=== PATIENT | female | born 1965 | race Caucasian/White ===

== ENCOUNTER 2018-11-27 17:32 | Emergency (ER) | payer OTHER, MEDICAID, SELFPAY ==
[2018-11-27 17:33] VITALS: BP 144/81; PULSE 92; RESP 16; TEMP 36.1; O2SAT 96; BMI 36.3
--- NOTE | 2018-11-27 17:49 | RAD_ITS ---
STUDY: X-RAY - PELVIS REASON FOR EXAM: Female, 53 years old. Fall TECHNIQUE: One view of the pelvis was obtained. COMPARISON: None. FINDINGS: There is no evidence of fracture or dislocation. Mild degenerative changes are present at the bilateral hip joints. There are no radiodense foreign bodies. RAD/Pelvis 1 or 2 Views IMPRESSION: No fracture or dislocation. Mild degenerative changes are present at the bilateral hip joints. Electronically Signed: Roberto Guillory, at 18:11 EDT Tel , Service support ,
--- NOTE | 2018-11-27 17:50 | ED.VISSUMM ---
- ER Visit Summary Date of Service: 11/27/18 Chief Complaint: Fall complaining of groin and pelvis pain History of Present Illness: The patient is a 53 F past medical history of diabetes, hypertension and prior thyroidectomy and hysterectomy. Patient was walking in [facility] on Sunday it was wet on the floor she slipped with her left leg and foot going forward and straddling on her right leg. She kind of did a split landed on the floor. No head injury. No LOC. Her primary pain is to both hips and both groins. She is able to walk. Physical Examination: Middle-aged female. No acute distress. Vital signs stable afebrile. HEENT exam atraumatic. Pupils are reactive light. C-spine nontender. Trachea midline. Lungs clear to auscultation bilaterally. Heart regular rate and rhythm no murmur. Chest nontender. Abdomen soft nontender normal bowel sounds no peritoneal signs. Remedies moves all 4. Neurovascular intact. Full range of motion. Normal motor strength and sensation. Pelvis is tender diffusely tender but no deformities. Back nontender. Spine nontender. Neurologic exam normal. GCS of 15. Awake alert no focal motor or sensory deficits. Test Results: Pelvis x-ray read both by myself and radiologist shows no acute abnormality. No fracture or dislocation. I did go over the films with the patient and family. Emergency Department Course and Treatment: Patient did not waiting for pain. Most likely this is soft tissue strain. X-ray will be obtained for evaluation of the pelvic bones. Treatment Plan: Ice to the area. Tylenol and Motrin for pain. Increase activity as tolerated. Follow-up if not improving. Disposition: dc Impression: Fall Pelvis contusion and groin strain and hip strain This note was generated with [employer] dictation software. It may contain incorrect words, spelling, and punctuation that were not noted in review of the chart prior to signing ED Disposition - Plan for ED Patient: Referrals: Care Physician,No Primary [NON-STAFF] -
--- NOTE | 2018-11-27 18:16 | ED.DEP ---
ED Disposition - Plan for ED Patient: Disposition: Home or Assisted Living Instructions: Groin Strain Referrals: Vinod Barakat MD [STAFF PHYSICIAN] - 1 Week if not improving Additional Instructions: Ice to all sore areas. Motrin and Tylenol for pain. This should progressively improve if it is not follow-up for further evaluation.
== END 2018-11-27 18:24 | disposition home or self-care (01) ==
PROVIDERS: Emergency Provider Emergency Medicine; Family Provider Internal Medicine; PCP Internal Medicine
DX: S30.0XXA Contusion of lower back and pelvis, initial encounter (principal); S39.011A Strain of muscle, fascia and tendon of abdomen, initial encounter; S76.011A Strain of muscle, fascia and tendon of right hip, initial encounter; S76.012A Strain of muscle, fascia and tendon of left hip, initial encounter; W01.0XXA Fall on same level from slipping, tripping and stumbling without subsequent striking against object, initial encounter; Y93.01 Activity, walking, marching and hiking; Y92.512 Supermarket, store or market as the place of occurrence of the external cause; E11.9 Type 2 diabetes mellitus without complications; I10 Essential (primary) hypertension; E03.9 Hypothyroidism, unspecified; Z79.84 Long term (current) use of oral hypoglycemic drugs; Z79.899 Other long term (current) drug therapy
CPT/HCPCS: 72170; 99282

== ENCOUNTER → 2018-12-16 14:22 | Outpatient (CLI) | payer OTHER, SELFPAY ==
[2018-12-16 13:24] VITALS: BMI 36.3
[2018-12-16 15:00] LABS: Absolute Lymphocyte Count 2.82 X10^3/uL (0.83-4.51); Absolute Neutrophil Count 6.2 X10^3/uL (2.0-7.7); Basophil# 0.07 X10^3/uL; Basophil% 0.7 % (0-1); Eosinophil# 0.34 X10^3/uL; Eosinophils% 3.3 % (0-5); Hematocrit 42.1 % (37-47); Hemoglobin 13.7 g/dL (12.0-15.0); Lymphocyte # 2.82 X10^3/ul (4.0); Lymphocyte % 27.7 % (19-41); Mean Corp Hgb Conc 32.5 g/dL (32-36); Mean Corpuscular Hgb 28.5 pg (27.0-32.0); Mean Corpuscular Volume 87.5 fL (81-99); Mean Platelet Vol. 9.6 fl (6.2-12.0); Monocyte# 0.68 X10^3/uL; Monocyte% 6.7 % (0-10); NRBC Flagged by Analyzer 0 % (0-5); Neutrophil # 6.24 X10^3/uL (2.7-7.7); Neutrophil % 61.4 % (47-70); Platelet Count 372 K/mm3 (150-450); RBC Distribution Width CV 13.5 % (11.6-14.6); RBC Distribution Width SD 42.7 fl (35.1-43.9); Red Blood Count 4.81 M/mm3 (4.2-5.4); White Blood Count 10.2 K/mm3 (4.4-11.0)
[2018-12-16 15:19] LABS: Microalbumin:Creatinine Ratio 27.1 mg/g CRE (<30 mg/g CRE)
[2018-12-16 15:38] LABS: AST(SGOT) 61 U/L (15-37); Alanine Aminotransfer ALT/SGPT 119 U/L (13-56); Alkaline Phosphatase 85 U/L (45-117); Anion Gap 9 (5-15); BUN 19 mg/dL (7-18); BUN/Creat Ratio 19.2 RATIO (10-20); Calcium,Total 9.5 mg/dL (8.5-10.1); Chloride 104 mmol/L (98-107); Creatinine, Serum 0.99 mg/dL (0.55-1.02); EST Glomerular Filtration Rate 63 mL/min (>60); Est Glom Filt Rate - Afr Amer 76 mL/min (>60); Globulin 3.9 g/dL (2.2-4.2); Glucose 123 mg/dL (74-106); Potassium 3.8 mmol/L (3.5-5.1); Protein, Total 7.9 g/dL (6.4-8.2); Sodium Level 136 mmol/L (136-145)
== END ==
PROVIDERS: Family Provider Internal Medicine; PCP Internal Medicine; Referring Provider Internal Medicine; Visit Provider Internal Medicine
DX: E11.9 Type 2 diabetes mellitus without complications (principal)
CPT/HCPCS: 36415; 80053; 82043; 82570; 85025

== ENCOUNTER → 2019-02-14 10:43 | Outpatient (CLI) | payer OTHER, SELFPAY ==
[2019-02-14 10:35] VITALS: BMI 35.9
--- NOTE | 2019-02-14 10:43 | RAD_ITS ---
STUDY: X-RAY - RIGHT ELBOW REASON FOR EXAM: Female, 53 years old. PAIN, NKI TECHNIQUE: 3 view(s) of the elbow. COMPARISON: None. FINDINGS: Minimal hypertrophic changes/enthesophyte of the medial and lateral humeral epicondyles. Otherwise, normal distal humerus. Normal radius and ulna. Normal radiocapitellar and ulnotrochlear articulations. The soft tissue structures are unremarkable. RAD/Elbow min 3 Views IMPRESSION: Minimal hypertrophic changes of the medial and lateral humeral epicondyles. Otherwise normal elbow. Electronically Signed: Tania Kent MD at 21:14 EST , Service support ,
--- NOTE | 2019-02-14 10:43 | RAD_ITS ---
STUDY: X-RAY - RIGHT HAND REASON FOR EXAM: Female, 53 years old. PAIN, NKI TECHNIQUE: 3 view(s) of the hand. COMPARISON: None. FINDINGS: Normal radiocarpal articulation. Normal distal radioulnar joint. Normal visualized carpal bones. There is degenerative joint disease of the scaphotrapezium / trapezoid articulation. Separate small chronic appearing fragment alongside the lateral surface of the trapezium. The remainder of the carpal articulations are normal. Normal carpometacarpal articulation of the thumb. Normal second through fifth carpometacarpal joints. Normal metacarpi. There is degenerative arthrosis of the metacarpophalangeal (MCP) joints. There is degenerative arthrosis of the interphalangeal joint of the thumb with articular joint space narrowing. Normal proximal and distal phalanges of the thumb. Normal metacarpophalangeal joints of the second through fifth fingers. Minimal degenerative changes of the interphalangeal joints. Normal phalanges of the second through fifth fingers. Benign bone island of the middle phalanx of the third finger. The soft tissue structures are unremarkable. RAD/Hand Min 3 Views IMPRESSION: Degenerative joint changes of the scaphotrapezium/trapezoid articulation. Small separate fragment or possibly a calcification juxtaposed the radial surface of the trapezoid. Possibilities include a fragment from prior injury or calcification of the bursa or flexor carpi radialis. Mild degenerative changes of the first metacarpophalangeal joint. Mild degenerative arthrosis of the interphalangeal joint of the thumb. Minimal degenerative changes of the interphalangeal joints. Electronically Signed: Tania Kent MD at 21:13 EST , Service support ,
== END ==
PROVIDERS: Family Provider Internal Medicine; PCP Internal Medicine; Referring Provider Orthopaedic Surgery; Visit Provider Orthopaedic Surgery
DX: M77.10 Lateral epicondylitis, unspecified elbow (principal); M79.641 Pain in right hand
CPT/HCPCS: 73080; 73130

== ENCOUNTER 2019-02-27 07:17 | Day surgery (SDC) | payer OTHER, SELFPAY ==
[2019-02-14 10:35] VITALS: BMI 35.9
[2019-02-27] VITALS (7 sets, daily range): BP systolic 96–119; BP diastolic 55–73; PULSE 71–84; RESP 16; TEMP 36.3–36.4; O2SAT 92–94; BMI 36.7
--- NOTE | 2019-02-27 07:29 | HP.PCM_ITS ---
History and Physical Date of Admission: 02/27/19 Intake Vital Signs 02/14/19 Height 5 ft 4 in 02/14/19 Weight: 209 lb 02/14/19 BMI 35.9 Intake Visit Reasons: Right hand Chief Complaint: trigger finger Accompanied by: self Allergies adhesive tape Allergy (Intermediate, Verified 11/27/18 17:32) Swelling cephalexin [From Keflex] Allergy (Intermediate, Verified 11/27/18 17:32) Rash Sulfa (Sulfonamide Antibiotics) Allergy (Intermediate, Verified 11/27/18 17:32) Unknown sulfamethoxazole [From Bactrim] Allergy (Intermediate, Verified 11/27/18 17:32) Rash trimethoprim [From Bactrim] Allergy (Intermediate, Verified 11/27/18 17:32) Rash Medications calcium carbonate 600 mg calcium (1,500 mg) tablet 600 mg PO BID 11/27/18 [History Confirmed 02/14/19] cholecalciferol (vitamin D3) 1,000 unit capsule 1,000 unit PO DAILY 11/27/18 [History Confirmed 02/14/19] glimepiride 1 mg tablet 1 mg PO QAM 11/27/18 [History Confirmed 02/14/19] lisinopril 10 mg-hydrochlorothiazide 12.5 mg tablet 1 tab PO DAILY 11/27/18 [History Confirmed 02/14/19] loratadine 10 mg capsule 10 mg PO DAILY PRN 11/27/18 [History Confirmed 02/14/19] metformin 1,000 mg tablet 1,000 mg PO BID 11/27/18 [History Confirmed 02/14/19] omega-3 fatty acids 1,000 mg capsule 1,000 mg PO DAILY 11/27/18 [History Confirmed 02/14/19] omeprazole magnesium 20 mg tablet,delayed release 20 mg PO BID tab 11/27/18 [History Confirmed 02/14/19] vitamin B complex 2 tab PO DAILY 11/27/18 [History Confirmed 02/14/19] levothyroxine 137 mcg tablet 137 mcg PO DAILY #90 tab 01/15/19 [Rx Confirmed 02/14/19] [facility] Medical History (Updated 12/16/18 @ 16:16 by Jonnie Guardado MD) Cancer (Acute) Carpal tunnel syndrome (Acute) Diabetes (Acute) GERD (gastroesophageal reflux disease) (Acute) Gallstones (Acute) Gastrointestinal problem (Acute) Heart murmur (Acute) Hypoglycemia (Acute) IBS (irritable bowel syndrome) (Acute) Liver disease (Acute) Pneumonia (Acute) Seasonal allergies (Acute) Thyroid cancer (Acute) UTI (urinary tract infection) (Acute) Chronic bronchitis (Chronic) Chronic headaches (Chronic) HTN (hypertension) (Chronic) Surgical History (Updated 11/27/18 @ 08:45 by Nena Morgan) Endometriosis determined by laparoscopy (Acute) History of bilateral breast reduction surgery (Acute) History of hysterectomy (Acute) History of removal of cervix but not uterus (Acute) History of thyroidectomy (Acute) History of tubal ligation (Acute) Hx of cholecystectomy (Acute) Social History (Updated 02/14/19 @ 11:39 by Wilbert Meyer DO) Smoking Status: Never smoker alcohol intake: never substance use type: does not use what type of physical activity do you participate in: walking HPI Right hand: Details: Parts of this documentation were recorded by a scribe, this documentation accurately reflects the service provided and the decisions made by me, Wilbert Meyer DO 02/14/19 0756. LETY MEADOWS is a 53 year old F NEW patient here today for right hand pain. Patient was referred here today by PCP Dr. Guardado. patient is here for right ringer finger trigger finger. She states she has had this locking and sticking of her right ring finger for about 1 year. She had a trigger finger injection over the summer which was effective until about 2 months ago. She states she is having some pain over her right middle finger has well but does not have any locking of this finger. She is also having some lateral epicondyle pain and tenderness over the last 3 months. Denies any PT, denies any injury, denies any bracing. Denies numbness, tingling or other associated symptoms. ROS Musc Reports joint pain, Denies numbness, Denies radiating pain into limb, Reports stiffness, Denies tingling Skin/Breast Denies redness, Denies lesions, Denies rash Neuro No numbness, No tingling Ortho Exam Right Wrist/Hand Skin/Wound: No Swelling, No Ecchymosis, Yes nail intact, Yes capillary refill normal A1 zachariah trigger: Yes (ring) Sensation: Radial: I, Ulnar: I, Median: I WRIST: ttp hypertrophy at 4th finger A1 zacahriah, clicking and palable release with flex/ext of fingers Left Wrist/Hand Skin/Wound: No Swelling, No Ecchymosis Right Elbow Skin/Wound: No Swelling ROM: Yes Flexion 0-140, Extension 0, Supination 0-90 and Pronation 0-80 Test: Yes TTP Lateral Epicondyle, Yes Pain w/ resist wrist ext, Yes Pain w/ resist 3rd dig ext ELBOW: No joint effusion full range of motion no collateral instability. no mechanical Assessment & Plan Problems 1. Trigger finger, right ring finger M65.341 2. Right lateral epicondylitis M77.11 Plan Educated on the anatomy and function of A1 zachariah in the hand, her treatment options are night splint, injection or surgical release. She also has right lateral epicondylitis, her treatment options for that are injections, oral nsaids, OT with eccentric exercises. Gave an OT script today and explained that sometimes it can take over a year for relief and that surgery is only an options once conservative treatment fails. Instructed to lift palm up Reviewed the pre-operative plans with the patient. Risks and benefits of the procedure were fully explained, including but not limited to infection, neurovascular injury, continued pain, arthritis, stiffness, need for further surgery, re-injury, DVT, PE, general risks of anesthesia, and loss of limb or life. The patient understands all the risks and does wish to proceed with written consent. Follow up post op or sooner if pain, swelling, numbness or associated symptoms, or concerns develop. All questions answered. Patient in agreement of plan. Orders Orders: Elbow min 3 Views Today M77.10 Hand Min 3 Views Today M79.641 Coding Level of Care Code Off vis,new,level 3 Diagnoses Trigger finger, right ring finger M65.341 Right lateral epicondylitis M77.11 I have re-examined the patient. There are no clinical changes since date of exam
[2019-02-27 08:31] LABS: Bedside Glucose 202 mg/dL (70-110)
[2019-02-27] MEDS: Lactated Ringers 1,000 ML 100 ML IV (08:33)
--- NOTE | 2019-02-27 09:17 | PCM.DC.ORTHO ---
Discharge Diet: No Restrictions Additional Instructions: Ice and elevate operative extremity next 72 hours. Keep dressing on clean and dry for 48 hours then may remove and allow warm soapy water to rinse over incision but do not submerge until sutures are out. Then apply bandaid over incision and change daily. encourage finger range of motion. Not lift more than 1/2 pound. Allergies/Adverse Reactions: Allergies adhesive tape Allergy (Intermediate, Verified 02/27/19 08:25) Swelling cephalexin [From Keflex] Allergy (Intermediate, Verified 02/27/19 08:25) Rash Sulfa (Sulfonamide Antibiotics) Allergy (Intermediate, Verified 02/27/19 08:25) Unknown sulfamethoxazole [From Bactrim] Allergy (Intermediate, Verified 02/27/19 08:25) Rash trimethoprim [From Bactrim] Allergy (Intermediate, Verified 02/27/19 08:25) Rash Medications to take at Discharge calcium carbonate 600 mg calcium (1,500 mg) tablet 600 mg PO BID 11/27/18 cholecalciferol (vitamin D3) 1,000 unit capsule 1,000 unit PO DAILY 11/27/18 glimepiride 1 mg tablet 1 mg PO QAM 11/27/18 lisinopril 10 mg-hydrochlorothiazide 12.5 mg tablet 1 tab PO DAILY 11/27/18 loratadine 10 mg capsule 10 mg PO DAILY PRN 11/27/18 metformin 1,000 mg tablet 1,000 mg PO BID 11/27/18 omega-3 fatty acids 1,000 mg capsule 1,000 mg PO DAILY 11/27/18 omeprazole magnesium 20 mg tablet,delayed release 20 mg PO BID tab 11/27/18 vitamin B complex 2 tab PO DAILY 11/27/18 levothyroxine 137 mcg tablet 137 mcg PO DAILY #90 tab 01/15/19 Hydrocodone Bitart/Apap 5-325 [Temple 5MG-325MG] 1 - 2 tablet PO Q4H PRN PRN 5 Days #20 tablet 02/27/19 The following prescriptions were given: Hydrocodone Bitart/Apap 5-325 [Temple 5MG-325MG] 1 - 2 tablet PO Q4H PRN PRN 5 Days #20 tablet PRN Reason: Pain Transmission Status: Sent to [facility] Primary Care Physician: Jonnie Guardado MD [Primary Care Provider] - Test Results: Test results from this visit will be discussed in further detail at your follow-up appointment, if applicable. Please Follow Up With: Wilbert Meyer DO - 2 weeks
--- NOTE | 2019-02-27 09:18 | OP.PCM_ITS ---
Report of Operation Date of Procedure: 02/27/19 Description of Surgical Findings:: Preoperative diagnosis; right fourth digit trigger finger Postoperative diagnosis; same Procedure: Left fourth digit A1 zachariah release Anesthesia: Local with MAC Tourniquet time; 10 minutes 250 mm Hg Complications: None Indication for procedure; This is a 53-year-old female with symptoms consistent with trigger finger. Risks benefits and alternatives were reviewed including risks of bleeding infection nerve tendon tissue damage need for further surgery and continued pain and symptoms, hypersensitivity to scar/incision and recurrence. Procedure; The patient was met in the preoperative holding area the operative extremity was identified by both patient and physician and was marked the patient was met by anesthesia and brought back to the operating room and transferred to the operating table in the supine position. Aanesthesia was started. A well-padded tourniquet was placed on the operative upper extremity. The patient was prepped and draped in the usual sterile fashion. A timeout was called to ensure the proper patient procedure and extremity were being contemplated. 0.5 percent Marcaine was injected into the incisional area. Esmarch was used tourniquet was inflated. 15 blade scalpel was used to make a l ongitudinal incision directly over the A1 zachariah was carried down through the subcutaneous tissue Elda retractors placed radial and ulnar protecting the digital nerves and a Ragnell retractor was used at the apex of the incision under direct visualization a deep blade scalpel was used to release the A1 zachariah. The wound was thoroughly irrigated and closed with 4-0 nylon vertical mattress edges. Dressing was applied in the form of Xeroform 4 x 4 web roll and an Caden wrap. Patient tolerated the procedure well was brought back to the PACU in stable condition.
== END 2019-02-27 10:08 | disposition home or self-care (01) ==
LOC: SDC 07:18 → AC 07:19
PROVIDERS: Family Provider Internal Medicine; PCP Internal Medicine; Referring Provider Orthopaedic Surgery; Visit Provider Orthopaedic Surgery
PROC: (CPT 26055; principal; 2019-02-27 08:45)
DX: M65.341 Trigger finger, right ring finger (principal); M77.11 Lateral epicondylitis, right elbow; R01.1 Cardiac murmur, unspecified; E11.9 Type 2 diabetes mellitus without complications; K21.9 Gastro-esophageal reflux disease without esophagitis; K44.9 Diaphragmatic hernia without obstruction or gangrene; K58.9 Irritable bowel syndrome, unspecified; G25.81 Restless legs syndrome; I10 Essential (primary) hypertension; E06.9 Thyroiditis, unspecified; Z87.19 Personal history of other diseases of the digestive system; Z87.01 Personal history of pneumonia (recurrent); Z85.850 Personal history of malignant neoplasm of thyroid; Z87.440 Personal history of urinary (tract) infections; Z79.84 Long term (current) use of oral hypoglycemic drugs; Z79.899 Other long term (current) drug therapy
CPT/HCPCS: 26055; 82962; J7120; J2405

== ENCOUNTER → 2019-04-15 | Outpatient (CLI) | payer OTHER, SELFPAY ==
[2019-04-14 14:53] VITALS: BMI 36.7
[2019-04-15 08:19] LABS: Mucous, Urine 0 SEEN /hpf (<or=2+); Red Blood Cells-Urine 0 SEEN /hpf (0-5); Squamous Epithelial Cells - UA 0 SEEN /hpf (5-10); White Blood Cells 0 SEEN /hpf (0-5)
[2019-04-15 12:31] LABS: Color, Urine Yellow (Yellow); Glucose, Dipstick Normal (Normal); Ketone-Dipstick 5 mg/dl (Negative); Leukocyte Esterase-Dipstick Negative /ul (Negative); Nitrite-Dipstick Negative (Negative); Occult Blood-Urine Negative /ul (Negative); Protein-Dipstick 30 mg/dl (Negative); Urine Bilirubin Dipstick Negative (Negative); Urine Clarity Turbid (Clear); Urine Urobilinogen Normal (Normal)
[2019-04-15 13:09] LABS: Bacteria 3+ /hpf (None Seen); Calcium Oxalate Crystals Ur 2+ /hpf (<or=2+)
== END | disposition home or self-care (01) ==
LOC: LABSPEC 08:17
PROVIDERS: PCP Internal Medicine; Visit Provider Internal Medicine
DX: R35.0 Frequency of micturition (principal)
CPT/HCPCS: 81001; 87086

== ENCOUNTER → 2019-07-30 15:26 | Outpatient (CLI) | payer OTHER, SELFPAY ==
[2019-07-30 14:37] VITALS: BMI 36.7
[2019-07-30 16:56] LABS: Anion Gap 13 (5-15); BUN 15 mg/dL (7-18); BUN/Creat Ratio 13.3 RATIO (10-20); Calcium,Total 9.3 mg/dL (8.5-10.1); Chloride 103 mmol/L (98-107); Creatinine, Serum 1.13 mg/dL (0.55-1.02); EST Glomerular Filtration Rate 53 mL/min (>60); Est Glom Filt Rate - Afr Amer 65 mL/min (>60); Glucose 202 mg/dL (74-106); Potassium 4.2 mmol/L (3.5-5.1); Sodium Level 140 mmol/L (136-145)
== END ==
PROVIDERS: PCP Internal Medicine; Referring Provider Internal Medicine; Visit Provider Internal Medicine
DX: E11.9 Type 2 diabetes mellitus without complications (principal); I10 Essential (primary) hypertension
CPT/HCPCS: 36415; 80048; 83036

== ENCOUNTER → 2019-11-04 09:10 | Outpatient (CLI) | payer OTHER, SELFPAY ==
[2019-09-29 14:56] VITALS: BMI 36.7
== END ==
PROVIDERS: PCP Internal Medicine; Visit Provider Nurse Practitioner Family
DX: Z20.828 Contact with and (suspected) exposure to other viral communicable diseases (principal)
CPT/HCPCS: 87635; C9803; U0003

== ENCOUNTER → 2019-11-07 17:14 | Outpatient (CLI) | payer OTHER, SELFPAY ==
[2019-09-29 14:56] VITALS: BMI 36.7
== END ==
PROVIDERS: PCP Internal Medicine; Referring Provider Nurse Practitioner Family; Visit Provider Nurse Practitioner Family
DX: Z20.828 Contact with and (suspected) exposure to other viral communicable diseases (principal)
CPT/HCPCS: 87635; C9803; U0003

== ENCOUNTER 2019-12-25 15:00 | Outpatient (RCR) | payer OTHER, SELFPAY ==
[2019-09-29 14:56] VITALS: BMI 36.7
== END 2019-12-27 23:59 ==
LOC: DC 15:00
PROVIDERS: PCP Internal Medicine; Visit Provider Internal Medicine
DX: Z71.3 Dietary counseling and surveillance (principal); E11.9 Type 2 diabetes mellitus without complications
CPT/HCPCS: 97802

== ENCOUNTER → 2020-01-08 09:29 | Outpatient (CLI) | payer OTHER, SELFPAY ==
[2020-01-07 16:30] VITALS: BMI 35.3
[2020-01-08 12:54] LABS: Absolute Lymphocyte Count 2.48 X10^3/uL (0.83-4.51); Absolute Neutrophil Count 5.1 X10^3/uL (2.0-7.7); Basophil# 0.06 X10^3/uL; Basophil% 0.7 % (0-1); Eosinophil# 0.44 X10^3/uL; Eosinophils% 5.1 % (0-5); Hematocrit 41.8 % (37-47); Hemoglobin 13.2 g/dL (12.0-15.0); Lymphocyte # 2.48 X10^3/ul (4.0); Lymphocyte % 28.6 % (19-41); Mean Corp Hgb Conc 31.6 g/dL (32-36); Mean Corpuscular Hgb 28.8 pg (27.0-32.0); Mean Corpuscular Volume 91.1 fL (81-99); Mean Platelet Vol. 9.9 fl (6.2-12.0); Monocyte# 0.52 X10^3/uL; NRBC Flagged by Analyzer 0 % (0-5); Neutrophil # 5.14 X10^3/uL (2.7-7.7); Neutrophil % 59.3 % (47-70); Platelet Count 352 K/mm3 (150-450); RBC Distribution Width CV 13.4 % (11.6-14.6); RBC Distribution Width SD 44.4 fl (35.1-43.9); Red Blood Count 4.59 M/mm3 (4.2-5.4); White Blood Count 8.7 K/mm3 (4.4-11.0)
[2020-01-08 13:12] LABS: Microalbumin,Random Urine 32.6 mg/L (NO RANGE EST.); Microalbumin:Creatinine Ratio 24.3 mg/g CRE (<30 mg/g CRE)
[2020-01-08 13:44] LABS: ALB/GLOB Ratio 0.9 RATIO (0.9-2.4); AST(SGOT) 23 U/L (15-37); Alanine Aminotransfer ALT/SGPT 57 U/L (13-56); Albumin, Serum 3.6 g/dL (3.2-5.0); Alkaline Phosphatase 74 U/L (45-117); Anion Gap 7 (5-15); BUN 17 mg/dL (7-18); BUN/Creat Ratio 17.9 RATIO (10-20); Calcium,Total 9.5 mg/dL (8.5-10.1); Chloride 106 mmol/L (98-107); Cholesterol 220 mg/dL (200); Creatinine, Serum 0.95 mg/dL (0.55-1.02); EST Glomerular Filtration Rate 65 mL/min (>60); Est Glom Filt Rate - Afr Amer 79 mL/min (>60); Globulin 3.9 g/dL (2.2-4.2); Glucose 140 mg/dL (74-106); High Density Lipoprotein 46 mg/dL; Potassium 4.6 mmol/L (3.5-5.1); Protein, Total 7.5 g/dL (6.4-8.2); Sodium Level 138 mmol/L (136-145); Thyroid Stim Hormone (TSH) 0.65 uIU/mL (0.358-3.74); Triglycerides 259 mg/dL; Very Low Density Lipoprotein 52 mg/dL (5-40)
== END ==
PROVIDERS: PCP Internal Medicine; Referring Provider Nurse Practitioner Family; Visit Provider Nurse Practitioner Family
DX: E11.9 Type 2 diabetes mellitus without complications (principal); I10 Essential (primary) hypertension; R25.2 Cramp and spasm
CPT/HCPCS: 36415; 80053; 80061; 82043; 82570; 84443; 85025

== ENCOUNTER 2020-01-08 16:00 | Outpatient (RCR) | payer OTHER, SELFPAY ==
[2019-09-29 14:56] VITALS: BMI 36.7
[2020-01-07 16:30] VITALS: BMI 35.3
== END 2020-01-26 23:59 ==
LOC: DC 16:00
PROVIDERS: PCP Internal Medicine; Visit Provider Internal Medicine
DX: Z71.3 Dietary counseling and surveillance (principal); E11.9 Type 2 diabetes mellitus without complications
CPT/HCPCS: 97803

== ENCOUNTER 2020-01-18 13:02 | Emergency (ER) | payer OTHER, SELFPAY ==
[2020-01-07 16:30] VITALS: BMI 35.3
[2020-01-18 13:03] VITALS: BP 142/81; PULSE 103; RESP 18; TEMP 36.4; O2SAT 96; BMI 35.3
--- NOTE | 2020-01-18 13:29 | ED.VIS.GEN ---
History of Present Illness Chief Complaint: Fever Informant: Patient Onset: Days - 3 days Narrative: Patient presents secondary to cough and sinus pressure. She reports low-grade fevers, sinus pressure, fatigue for the past 3 days. She states she now feels that she has pressure in her ears as well. She has tried Mucinex without much improvement. She denies any known Covid exposures. - Past Medical History (1) Generalized anxiety disorder with panic attacks Status: Chronic (2) Hypertension Status: Chronic (3) Type 2 diabetes mellitus Status: Chronic Past Medical History - Allergies and Home Meds Allergies/Adverse Reactions: Allergies adhesive tape Allergy (Intermediate, Verified 01/18/20 13:03) Swelling cephalexin [From Keflex] Allergy (Intermediate, Verified 01/18/20 13:03) Rash Sulfa (Sulfonamide Antibiotics) Allergy (Intermediate, Verified 01/18/20 13:03) Unknown sulfamethoxazole [From Bactrim] Allergy (Intermediate, Verified 01/18/20 13:03) Rash trimethoprim [From Bactrim] Allergy (Intermediate, Verified 01/18/20 13:03) Rash Primary Care Physician: Jonnie Guardado MD [Primary Care Provider] - Prior records reviewed: Yes Lives: Spouse/ Significant Other Smoking Status: Never smoker Review of Systems General: Reports: Fever. Denies: Chills Eyes: Denies: Visual changes - bilaterally ENT: Reports: Bilateral ear pain, - - Sinus pressure Cardiovascular: Denies: Chest pain Respiratory: Reports: Cough. Denies: Dyspnea, Sputum Gastrointestinal: Denies: Abdominal pain, Vomiting, Diarrhea Genitourinary: Denies: Dysuria Neurological: Denies: Headache Hematologic: Denies: Easy bruising, Easy bleeding Allergy: Denies: Uticaria Physical Exam Vital Signs/Narrative: Vital Signs Temp Pulse Resp BP Pulse Ox 01/18/20 13:03 97.5 F L 103 H 18 142/81 H 96 Inital Vital Signs reviewed: Yes General: Well nourished, Well developed Head: Normocephalic Eyes: Perrl, EOMI ENT: Moist mucous membranes, TM's clear Neck: Supple Cardiovascular: Regular rate, Regular rhythm Respiratory: No distress, CTA bilaterally Abdomen: Soft, Nontender Skin: Normal color Neurological: Alert, Oriented x3 Psychological: Normal affect Diagnostic/Tx/Re-eval - Medical Decision Making Patient has had sinus symptoms ongoing for the past 3 days. I did advise her that typically we will not treat with antibiotics until she has had 1 week of symptoms as most of these infections are viral. Patient voices understanding and agreement. We did discuss [id number] medications that she can use to help manage her symptoms. A Covid swab will be obtained and sent out. ED Disposition - Plan for ED Patient: Disposition: Home or Assisted Living Diagnosis: Viral URI Instructions: ED URI Viral Referrals: Jonnie Guardado MD [Primary Care Provider] - 1 Week if not improving
== END 2020-01-18 13:51 | disposition home or self-care (01) ==
LOC: ED 13:33
PROVIDERS: Emergency Provider Emergency Medicine; PCP Internal Medicine
DX: U07.1 COVID-19 (principal); I10 Essential (primary) hypertension; E11.9 Type 2 diabetes mellitus without complications; Z79.84 Long term (current) use of oral hypoglycemic drugs; Z79.899 Other long term (current) drug therapy
CPT/HCPCS: 87635; 99282; U0003

== ENCOUNTER 2020-03-15 15:13 | Outpatient (RCR) | payer OTHER, SELFPAY ==
[2020-02-06 14:36] VITALS: BMI 35.3
== END 2020-03-15 23:59 | disposition home or self-care (01) ==
LOC: DC 15:13
PROVIDERS: PCP Internal Medicine; Visit Provider Internal Medicine
DX: E11.9 Type 2 diabetes mellitus without complications (principal)
CPT/HCPCS: 97803

== ENCOUNTER 2020-08-18 15:41 | Emergency (ER) | payer OTHER, SELFPAY ==
[2020-05-14 10:25] VITALS: BMI 33.6
[2020-08-18 15:42] VITALS: BP 139/84; PULSE 105; RESP 14; TEMP 36.3; O2SAT 96; BMI 34.0
--- NOTE | 2020-08-18 16:32 | EKG12_ITS ---
Test Reason : CP Blood Pressure : / mmHG Vent. Rate : 099 BPM Atrial Rate : 099 BPM P-R Int : 154 ms QRS Dur : 092 ms QT Int : 354 ms P-R-T Axes : 052 012 020 degrees QTc Int : 454 ms Normal sinus rhythm Inferior infarct , age undetermined , cannot be excluded Abnormal ECG Confirmed by GILDA JONES, TIFFANIE ([id number]), publications editor RENARD ESCAMILLA ([id number]) on 08/25/2020 10:46:45 AM Referred By: MEHRAN Confirmed By:TIFFANIE VO MD
--- NOTE | 2020-08-18 16:34 | NURSING ---
NO OLD EKGS
[2020-08-18 17:08] LABS: Absolute Neutrophil Count 5.3 X10^3/uL (2.0-7.7); Basophil# 0.07 X10^3/uL; Basophil% 0.8 % (0-1); Eosinophil# 0.46 X10^3/uL; Hematocrit 42.8 % (37-47); Hemoglobin 13.6 g/dL (12.0-15.0); Lymphocyte % 30.6 % (19-41); Mean Corp Hgb Conc 31.8 g/dL (32-36); Mean Corpuscular Volume 88.1 fL (81-99); Mean Platelet Vol. 9.4 fl (6.2-12.0); Monocyte# 0.53 X10^3/uL; Monocyte% 5.8 % (0-10); NRBC Flagged by Analyzer 0 % (0-5); Neutrophil # 5.26 X10^3/uL (2.7-7.7); Neutrophil % 57.5 % (47-70); Platelet Count 364 K/mm3 (150-450); RBC Distribution Width CV 13.9 % (11.6-14.6); RBC Distribution Width SD 45.1 fl (35.1-43.9); Red Blood Count 4.86 M/mm3 (4.2-5.4); White Blood Count 9.2 K/mm3 (4.4-11.0)
--- NOTE | 2020-08-18 17:16 | RAD_ITS ---
STUDY: X-RAY CHEST REASON FOR EXAM: Female, 54 years old. chest pain TECHNIQUE: Single AP portable view of the chest. COMPARISON: None. FINDINGS: The lungs are clear and expanded. There is no demonstrated pleural abnormality. Normal size heart. Normal mediastinum and leslie. Normal visualized pulmonary arteries. Normal visualized aortic arch and descending thoracic aorta. Normal visualized thoracic spine. Normal visualized ribs, clavicles, and shoulders. There is no demonstrated abnormality of the visualized soft tissue structures of the upper abdomen. RAD/Chest 1 View (Portable) IMPRESSION: Normal x-ray examination of the chest. Electronically Signed: Rafael Bartlett MD at 17:56 EDT Tel , Service support ,
[2020-08-18 17:21] VITALS: BP 131/61; PULSE 90; RESP 19; O2SAT 999
[2020-08-18 17:25] LABS: Anion Gap 9 (5-15); BUN 18 mg/dL (7-18); BUN/Creat Ratio 15.4 RATIO (10-20); Chloride 110 mmol/L (98-107); Creatinine, Serum 1.17 mg/dL (0.55-1.02); EST Glomerular Filtration Rate 51 mL/min (>60); Est Glom Filt Rate - Afr Amer 62 mL/min (>60); Estimated Creatinine Clearance 47.47 ml/min; Glucose 106 mg/dL (74-106); Potassium 3.8 mmol/L (3.5-5.1); Sodium Level 142 mmol/L (136-145); Troponin-I HS < 3.0 pg/mL (3.0-53.7)
[2020-08-18 17:56] LABS: Thyroid Stim Hormone (TSH) 2.35 uIU/mL (0.358-3.74)
[2020-08-18 18:01] LABS: D-Dimer Quantitative (DVT/PE) <= 0.27 FEU/ug/m (0.27-0.49)
[2020-08-18 18:14] VITALS: BP 104/57; PULSE 89; RESP 17; O2SAT 94
[2020-08-18 19:00] VITALS: BP 139/75; PULSE 86; RESP 14; O2SAT 96
[2020-08-18 19:28] LABS: Troponin-I HS 3.5 pg/mL (3.0-53.7)
--- NOTE | 2020-08-18 19:42 | ED.VIS.CHEST ---
HPI History of Present Illness Chief Complaint: Chest Pain Informant: patient Narrative Narrative: Patient is a 54-year-old female with history of hypertension, diabetes, anxiety and thyroid cancer status post resection presenting with chest pain. Patient states for the past 2 days she is had pressure in her chest that radiates all the way across her chest. She states is worse in the morning. Pain for last for about a minute at a time. She notes this morning she was driving all of a sudden her palms felt very sweaty and her fingers felt very cold. Patient know she still has some slight discomfort in her chest. She denies any associated diaphoresis. No palpitations. No shortness of breath. No leg swelling but notes that her toes seemed puffy yesterday. No recent travel. No other complaints at this time. Denies any personal history of cardiac disease. Never had a stress test. [facility] Medical History (Updated 08/18/20 @ 19:[address] Margaret Agosto, DO) Cancer Carpal tunnel syndrome Chronic bronchitis Chronic headaches Diabetes Gallstones Gastrointestinal problem GERD (gastroesophageal reflux disease) Heart murmur HTN (hypertension) Hypoglycemia IBS (irritable bowel syndrome) Liver disease Malignant neoplasm of thyroid gland Pneumonia Seasonal allergies surgery to r hand Thyroid cancer Trigger finger UTI (urinary tract infection) Home Medications calcium carbonate 600 mg calcium (1,500 mg) tablet 600 mg PO BID 11/27/18 [History Last Taken Unknown] cholecalciferol (vitamin D3) 25 mcg (1,000 unit) capsule 1,000 unit PO DAILY 11/27/18 [History Last Taken Unknown] loratadine 10 mg capsule 10 mg PO DAILY PRN 11/27/18 [History Last Taken Unknown] omega-3 fatty acids 1,000 mg capsule 1,000 mg PO DAILY 11/27/18 [History Last Taken Unknown] omeprazole magnesium 20 mg tablet,delayed release 20 mg PO BID tab 11/27/18 [History Last Taken 02/27/19] vitamin B complex 2 tab PO DAILY 11/27/18 [History Last Taken Unknown] hydroxyzine HCl 25 mg tablet 25 mg PO BID PRN #30 tab 09/29/19 [Rx Last Taken Unknown] empagliflozin 10 mg tablet 10 mg PO QAM #30 tab 06/04/20 [Rx Last Taken Unknown] levothyroxine 137 mcg tablet See Rx Instructions .ROUTE .COMPLEX #90 tab 06/16/20 [Rx Last Taken Unknown] metformin 1,000 mg tablet 1,000 mg PO BID #180 tab 06/16/20 [Rx Last Taken Unknown] lisinopril 5 mg tablet 5 mg PO DAILY #90 tab 07/02/20 [Rx Last Taken Unknown] glimepiride 4 mg tablet 4 mg PO QAM #90 tab 08/04/20 [Rx Last Taken Unknown] Allergy/AdvReac Type Severity Reaction Status Date / Time adhesive tape Allergy Intermediate Swelling Verified 08/18/20 15:44 cephalexin [From Keflex] Allergy Intermediate Rash Verified 08/18/20 15:44 Sulfa (Sulfonamide Allergy Intermediate Unknown Verified 08/18/20 15:44 Antibiotics) sulfamethoxazole Allergy Intermediate Rash Verified 08/18/20 15:44 [From Bactrim] trimethoprim [From Bactrim] Allergy Intermediate Rash Verified 08/18/20 15:44 Family History Unknown Anemia Anxiety Arthritis Breast cancer Cervical cancer Diabetes Depression Hypertension Respiratory disease Seizures Thyroid disorder Aunt Ovarian cancer Surgical History Endometriosis determined by laparoscopy History of bilateral breast reduction surgery History of hysterectomy History of removal of cervix but not uterus History of thyroidectomy History of tubal ligation Hx of cholecystectomy Social History Smoking Status: Never smoker alcohol intake: never substance use type: does not use what type of physical activity do you participate in: walking ROS ROS ED Constitutional Constitutional ED: Denies fatigue or weakness Eyes Eyes: Denies blurry vision or other visual disturbances Cardiovascular Cardiovascular: Reports chest pain; Denies palpitations or racing heartbeat Respiratory/Chest Respiratory/Chest: Denies cough, dyspnea or dyspnea on exertion Gastrointestinal Gastrointestinal: Denies abdominal pain, nausea or vomiting Genitourinary Genitourinary ED: Denies decreased urination or dysuria Musculoskeletal Musculoskeletal: Reports other Details: no leg swelling ; Denies extremity pain Integumentary Denies new lesions or rash Neurologic Neurologic: Denies paresthesias or weakness Psychiatric Psychiatric: Denies anxiety or depression Hematologic/Lymphatic Hematologic/Lymphatic: Denies easy bleeding or easy bruising EXAM Physical Exam Const Vital Signs: 08/18/20 15:42 08/18/20 17:21 08/18/20 17:22 Temperature 97.4 F L Temperature Source Temporal Pulse Rate 105 H 90 Respiratory Rate 14 19 H Blood Pressure 139/84 H 131/61 H Blood Pressure Mean 102 84 Pulse Ox 96 999 Oxygen Delivery Method Room Air Room Air Room Air 08/18/20 18:14 08/18/20 19:00 Temperature Temperature Source Pulse Rate 89 86 Respiratory Rate 17 14 Blood Pressure 104/57 L 139/75 H Blood Pressure Mean 72 96 Pulse Ox 94 96 Oxygen Delivery Method Positive well nourished and well developed General Appearance ED: well developed HEENT normocephalic and atraumatic Eyes PERRL Neck supple and no JVD Chest Wall inspection of chest normal and palpation of chest normal Resp normal respiratory effort and clear to auscultation bilaterally Cardio regular rate, regular rhythm and no murmurs GI normal to inspection, nondistended, normoactive bowel sounds Extremity normal to inspection Extremity Narrative: 2+ bilateral DP pulses General Extremety ED: Negative for edema, pulses abnormal or tenderness General Extremity: Negative for edema or pulses abnormal Neuro oriented x3 Sensorium / Orientation: awake and alert Psych mental status grossly normal Skin no rashes or lesions noted Heart Score History: Slightly/Non-Suspicious ECG: Normal Age: >45 - <65 years Risk Factors: 1 or 2 Risk Factors Troponin: </= Normal Limit Score: 2 MDM MDM MDM Narrative Medical decision making narrative: Patient is evaluated for chest pain. Her chest pain seems atypical. She appears nontoxic in no acute distress. EKG does not show any acute ischemic changes. Her only risk factor for PE is her age. She is otherwise low risk of D-dimer obtained which is normal. High sensitive troponin is normal x2. Patient's creatinine is mildly elevated at 1.17 however I do not have a prior to compare to. Patient is encouraged to follow-up with her primary care doctor and she has an appointment in a little over 1 week. She is counseled that she likely need outpatient stress test and further cardiac evaluation to definitively rule out ACS however her 30-day mortality risk is currently 1%. Patient is counseled return precautions. She verbalizes agreement understand this plan. Discharged home in stable condition. Lab Data Attestation: I reviewed the patient's lab results. Labs: Laboratory Results - last 24 hr 08/18/20 08/18/20 08/18/20 17:00 17:00 17:00 WBC 9.2 RBC 4.86 Hgb 13.6 Hct 42.8 MCV 88.1 MCH 28.0 MCHC 31.8 L RDW Std Deviation 45.1 H RDW Coeff of Tonia 13.9 Plt Count 364 MPV 9.4 Immature Gran % (Auto) 0.300 Neut % (Auto) 57.5 Lymph % (Auto) 30.6 [place] % (Auto) 5.8 Eos % (Auto) 5.0 Baso % (Auto) 0.8 Absolute Neuts (auto) 5.3 Absolute Lymphs (auto) 2.80 Nucleated RBC % 0 D-Dimer Quant (PE/DVT) Sodium 142 Potassium 3.8 Chloride 110 H Carbon Dioxide 23.0 Anion Gap 9 BUN 18 Creatinine 1.17 H Estim Creat Clear Calc 47.47 Est GFR (MDRD) Af Amer 62 Est GFR (MDRD) Non-Af 51 L BUN/Creatinine Ratio 15.4 Glucose 106 Calcium 9.0 Troponin I High Sens < 3.0 L TSH 2.35 08/18/20 08/18/20 17:35 18:45 WBC RBC Hgb Hct MCV MCH MCHC RDW Std Deviation RDW Coeff of Tonia Plt Count MPV Immature Gran % (Auto) Neut % (Auto) Lymph % (Auto) [place] % (Auto) Eos % (Auto) Baso % (Auto) Absolute Neuts (auto) Absolute Lymphs (auto) Nucleated RBC % D-Dimer Quant (PE/DVT) <= 0.27 Sodium Potassium Chloride Carbon Dioxide Anion Gap BUN Creatinine Estim Creat Clear Calc Est GFR (MDRD) Af Amer Est GFR (MDRD) Non-Af BUN/Creatinine Ratio Glucose Calcium Troponin I High Sens 3.5 TSH Radiography Chest X-Ray - ED: 1 View, Read by ED Physician, Read by Radiologist and Normal Diagnostic Testing: Radiology Impression Chest X-Ray 08/18/20 17:16 IMPRESSION: Normal x-ray examination of the chest. Electronically Signed: Rafael Bartlett MD at 17:56 EDT Tel , Service support , Rhythm Strip Rhythm Strip: Sinus Rhythm Rate: 99 Ectopy: None EKG Initial EKG: Attestation: I personally reviewed and interpreted this EKG as follows: Interpretation: Sinus Rhythm Comments: Normal sinus rhythm at a rate of 99 Normal axis Normal intervals Normal ST segments Discharge Plan Triage Chief Complaint: Chest Pain ED Provider: Margaret Agosto Dx/Rx/DC Orders Clinical Impression: Chest pain Instructions: ED Chest Pain, Uncertain Cause Prescriptions: No Action Prilosec OTC 20 mg tablet,delayed release (DR/EC) 20 mg PO BID RF: 0 cholecalciferol (vitamin D3) 1,000 unit capsule 1,000 unit PO DAILY RF: 0 calcium carbonate [Calcium 600] 600 mg calcium (1,500 mg) tablet 600 mg PO BID RF: 0 omega-3 fatty acids [Fish Oil Concentrate] 1,000 mg capsule 1,000 mg PO DAILY RF: 0 loratadine 10 mg capsule 10 mg PO DAILY PRN (Reason: Allergies) RF: 0 vitamin B complex Tablet 2 tab PO DAILY RF: 0 hydroxyzine HCl 25 mg tablet 25 mg PO BID PRN (Reason: anxiety) Qty: 30 RF: 1 Jardiance 10 mg tablet 10 mg PO QAM Qty: 30 RF: 2 levothyroxine 137 mcg tablet See Rx Instructions .ROUTE .COMPLEX Qty: 90 RF: 0 metformin 1,000 mg tablet 1,000 mg PO BID Qty: 180 RF: 1 lisinopril 5 mg tablet 5 mg PO DAILY Qty: 90 RF: 1 glimepiride 4 mg tablet 4 mg PO QAM Qty: 90 RF: 3 Primary Care Provider: Jonnie Guardado Referrals: Jonnie Guardado MD [Primary Care Provider] - Activity Restrictions/Additional Instructions: Please follow-up with your primary care doctor as scheduled and let them know about the chest pain been having. Let them know you need further cardiac evaluation of this. You do not require admission at this time. Your work-up today was normal. Disposition Disposition: Home, Self Care
[2020-08-18 19:55] VITALS: BP 142/77
== END 2020-08-18 19:55 | disposition home or self-care (01) ==
PROVIDERS: Emergency Provider Emergency Medicine; PCP Internal Medicine
DX: R07.89 Other chest pain (principal); I10 Essential (primary) hypertension; F41.9 Anxiety disorder, unspecified; G56.00 Carpal tunnel syndrome, unspecified upper limb; K21.9 Gastro-esophageal reflux disease without esophagitis; K58.9 Irritable bowel syndrome, unspecified; E11.9 Type 2 diabetes mellitus without complications; Z87.19 Personal history of other diseases of the digestive system; Z87.01 Personal history of pneumonia (recurrent); Z85.850 Personal history of malignant neoplasm of thyroid; Z87.440 Personal history of urinary (tract) infections; Z79.84 Long term (current) use of oral hypoglycemic drugs; Z79.899 Other long term (current) drug therapy
CPT/HCPCS: 71045; 80048; 84443; 84484; 85025; 85379; 93005; 99284; A4216

== ENCOUNTER → 2020-08-31 09:26 | Outpatient (CLI) | payer OTHER, SELFPAY ==
[2020-08-18 15:42] VITALS: BMI 34.0
[2020-08-31 12:31] LABS: Ferritin 13 ng/mL (8-252); T4 Free Direct 1.22 ng/dL (0.76-1.46); Thyroid Stim Hormone (TSH) 3.84 uIU/mL (0.358-3.74)
[2020-08-31 16:37] LABS: Hemoglobin A1c 6.4 % (3.8-5.6)
[2020-09-01 21:25] LABS: Anti-Thyroglobulin AB < 1.0 IU/mL (0.0-0.9); Thyroglobulin, Serum Qt. < 0.1 ng/mL (1.5-38.5)
== END ==
PROVIDERS: Internal Medicine Endocrinology, Diabetes & Metabolism; Physician Assistant; PCP Internal Medicine; Visit Provider Nurse Practitioner Family
DX: C73 Malignant neoplasm of thyroid gland (principal); E89.0 Postprocedural hypothyroidism; E61.1 Iron deficiency; E11.9 Type 2 diabetes mellitus without complications
CPT/HCPCS: 36415; 82728; 83036; 84432; 84439; 84443; 86800

== ENCOUNTER 2021-05-23 09:32 | Outpatient (CLI) | payer OTHER, SELFPAY ==
[2021-05-23 12:53] LABS: Cholesterol 212 mg/dL (200); High Density Lipoprotein 51 mg/dL; Thyroid Stim Hormone (TSH) 1.04 uIU/mL (0.358-3.74); Triglycerides 159 mg/dL; Very Low Density Lipoprotein 32 mg/dL (5-40)
[2021-05-23 13:10] LABS: ALB/GLOB Ratio 0.9 RATIO (0.9-2.4); AST(SGOT) 16 U/L (15-37); Alanine Aminotransfer ALT/SGPT 47 U/L (13-56); Albumin, Serum 3.5 g/dL (3.2-5.0); Alkaline Phosphatase 70 U/L (45-117); Anion Gap 8 (5-15); BUN 15 mg/dL (7-18); BUN/Creat Ratio 18.1 RATIO (10-20); Calcium,Total 9.5 mg/dL (8.5-10.1); Chloride 108 mmol/L (98-107); Creatinine, Serum 0.83 mg/dL (0.55-1.02); EST Glomerular Filtration Rate 76 mL/min (>60); Est Glom Filt Rate - Afr Amer 92 mL/min (>60); Globulin 3.7 g/dL (2.2-4.2); Glucose 132 mg/dL (74-106); Potassium 4.3 mmol/L (3.5-5.1); Protein, Total 7.2 g/dL (6.4-8.2); Sodium Level 140 mmol/L (136-145)
== END 2021-05-23 23:59 | disposition home or self-care (01) ==
LOC: BIMLAB 09:33
PROVIDERS: Internal Medicine Endocrinology, Diabetes & Metabolism; PCP Internal Medicine; Referring Provider Nurse Practitioner Family; Visit Provider Nurse Practitioner Family
DX: I10 Essential (primary) hypertension (principal); E11.9 Type 2 diabetes mellitus without complications; E89.0 Postprocedural hypothyroidism
CPT/HCPCS: 36415; 80053; 80061; 84443

== ENCOUNTER 2021-06-02 15:54 | Outpatient (CLI) | payer OTHER, SELFPAY ==
--- NOTE | 2021-06-02 15:55 | BI_ITS ---
MAMMOGRAPHY - BILATERAL SCREENING REASON FOR EXAM: Female, 55 years old. Routine annual screening examination. PERTINENT HISTORY: Grandmothers with breast cancer. TECHNIQUE: Digital bilateral breast facundo (3D mammographic acquisition) in the CC and MLO projections. 2-D mediolateral oblique (MLO) and craniocaudad (CC) views of both breasts were obtained. CAD: Full Field Digital Mammography with Computer Added Detection was performed. COMPARISON: Comparison is made with prior outside examination of 04/30/2018. FINDINGS: Breast Composition: The breasts are almost entirely fatty. There are no dominant masses or suspicious calcifications. Stable small benign-appearing bilateral axillary lymph nodes. No other significant abnormalities are identified. There has been no significant change since the prior study. BI/SCRN MAMM (CAD)W/FACUNDO BILAT IMPRESSION: Stable bilateral screening mammogram. Yearly follow-up mammogram recommended. (A) ASSESSMENT CATEGORY: BIRADS Category 2: Benign. A letter regarding these results will be sent to the patient by the facility within 30 days. Approximately 10% of breast cancers are not detected by mammography. A normal mammogram should not delay biopsy of a clinically suspicious abnormality. [id number] Electronically Signed: Linden Motley MD at 14:18 EDT ,
== END 2021-06-02 23:59 | disposition home or self-care (01) ==
LOC: OPBI 15:54
PROVIDERS: PCP Internal Medicine; Referring Provider Internal Medicine; Visit Provider Internal Medicine
DX: Z12.31 Encounter for screening mammogram for malignant neoplasm of breast (principal)
CPT/HCPCS: 77063; 77067

== ENCOUNTER → 2021-08-22 | Outpatient (CLI) | payer OTHER, SELFPAY ==
[2021-08-22 16:21] LABS: Absolute Lymphocyte Count 2.46 X10^3/uL (0.83-4.51); Absolute Neutrophil Count 5.9 X10^3/uL (2.0-7.7); Basophil# 0.07 X10^3/uL; Basophil% 0.7 % (0-1); Eosinophil# 0.49 X10^3/uL; Eosinophils% 5.1 % (0-5); Hematocrit 42.1 % (37-47); Hemoglobin 13.6 g/dL (12.0-15.0); Lymphocyte # 2.46 X10^3/ul (0.83-4.51); Lymphocyte % 25.7 % (19-41); Mean Corp Hgb Conc 32.3 g/dL (32-36); Mean Corpuscular Hgb 28.4 pg (27.0-32.0); Mean Corpuscular Volume 87.9 fL (81-99); Mean Platelet Vol. 9.8 fl (6.2-12.0); Monocyte# 0.59 X10^3/uL; Monocyte% 6.2 % (0-10); NRBC Flagged by Analyzer 0 % (0-5); Neutrophil # 5.93 X10^3/uL (2.7-7.7); Platelet Count 345 K/mm3 (150-450); RBC Distribution Width CV 13.7 % (11.6-14.6); RBC Distribution Width SD 44.3 fl (35.1-43.9); Red Blood Count 4.79 M/mm3 (4.2-5.4); White Blood Count 9.6 K/mm3 (4.4-11.0)
[2021-08-22 16:45] LABS: Erythrocyte Sedimentation Rate 21 mm/hr (0-30)
[2021-08-22 16:53] LABS: ALB/GLOB Ratio 0.9 RATIO (0.9-2.4); AST(SGOT) 18 U/L (15-37); Alanine Aminotransfer ALT/SGPT 44 U/L (13-56); Albumin, Serum 3.5 g/dL (3.2-5.0); Alkaline Phosphatase 71 U/L (45-117); Anion Gap 10 (5-15); BUN 17 mg/dL (7-18); BUN/Creat Ratio 17.1 RATIO (10-20); CRP 3.21 mg/L (0.0-3.0); Calcium,Total 8.9 mg/dL (8.5-10.1); Chloride 110 mmol/L (98-107); EST Glomerular Filtration Rate 61 mL/min (>60); Est Glom Filt Rate - Afr Amer 74 mL/min (>60); Globulin 3.8 g/dL (2.2-4.2); Glucose 112 mg/dL (74-106); Potassium 3.8 mmol/L (3.5-5.1); Protein, Total 7.3 g/dL (6.4-8.2); Sodium Level 139 mmol/L (136-145)
[2021-08-24 15:08] LABS: Anti-Centromere B Ab <0.2 AI (0.0-0.9); Anti-Chromatin <0.2 AI (0.0-0.9); Anti-Jo <0.2 AI (0.0-0.9); Anti-Scleroderma-70 AB <0.2 AI (0.0-0.9); RNP Ab <0.2 AI (0.0-0.9); SJOGREN'S Anti-SS-A test < 0.2 AI (0.0-0.9); SJOGREN'S Anti-SS-B test < 0.2 AI (0.0-0.9); Smith Ab <0.2 AI (0.0-0.9)
[2021-08-24 17:41] LABS: Anti-dsDNA Ab 1 IU/mL (0-9)
[2021-08-25 12:19] LABS: Anti-Thyroglobulin AB < 1.0 IU/mL (0.0-0.9); Thyroglobulin, Serum Qt. < 0.1 ng/mL (1.5-38.5)
[2021-08-25 16:09] LABS: Endomysial Antibody IgA Negative (Negative); Immunoglobulin A 291 mg/dL (87-352)
[2021-08-26 10:12] LABS: Gastrin, Serum 624 pg/mL (0-115); t-Transglutaminase IgA <2 U/mL (0-3)
== END | disposition home or self-care (01) ==
LOC: LAB 15:52
PROVIDERS: Internal Medicine Endocrinology, Diabetes & Metabolism; PCP Internal Medicine; Referring Provider Nurse Practitioner Adult Health; Visit Provider Nurse Practitioner Adult Health
DX: R10.30 Lower abdominal pain, unspecified (principal); C73 Malignant neoplasm of thyroid gland; R19.8 Other specified symptoms and signs involving the digestive system and abdomen; K21.9 Gastro-esophageal reflux disease without esophagitis; R11.0 Nausea
CPT/HCPCS: 36415; 80053; 82784; 82941; 83516; 84432; 85025; 85652; 86140; 86225; 86235; 86255; 86800

== ENCOUNTER → 2021-08-26 | Outpatient (CLI) | payer OTHER, SELFPAY ==
--- NOTE | 2021-08-26 17:48 | CT_ITS ---
STUDY: CT Abdomen And Pelvis W/ Contrast Injection 08/26/2021 7:45 PM REASON FOR EXAM: Female, 55 years old. ABDOMINAL PAIN bowel change, lower abd pain -- oral and IV TECHNIQUE: Transaxial images were obtained with oral contrast, and IV Readi-CAT and amp; 100mL Isovue-370 intravenous contrast. Individualized dose optimization techniques were used for this CT. COMPARISON: None. FINDINGS: The visualized lung bases are unremarkable. The visualized portions of the heart are within normal limits. Unremarkable liver. There are surgical clips in the gallbladder fossa consistent with a prior cholecystectomy. Unremarkable spleen. Unremarkable pancreas. Unremarkable bilateral adrenal glands. No acute findings of the right kidney. No acute findings of the left kidney. Unremarkable visualized stomach. Unremarkable small intestine. Unremarkable colon. The appendix is visualized and appears unremarkable. There are no acute findings of the abdominal aorta. Unremarkable inferior vena cava. Subcentimeter mesenteric lymph nodes. Unremarkable urinary bladder. There is absence of the uterus consistent with a prior hysterectomy. There is an umbilical hernia containing fat. There are diffuse degenerative changes of the visualized lumbar spine. CT/Abdomen/Pelvis WITH Contrast IMPRESSION: (NOT LISTED IN ORDER OF SIGNIFICANCE) There are no acute findings. There is absence of the uterus consistent with a prior hysterectomy. There are surgical clips in the gallbladder fossa consistent with a prior cholecystectomy. Other findings as above. Electronically Signed: Sarkis Bradshaw MD at 19:47 EDT ,
== END | disposition home or self-care (01) ==
LOC: CT 17:46
PROVIDERS: PCP Internal Medicine; Visit Provider Nurse Practitioner Adult Health
DX: R10.30 Lower abdominal pain, unspecified (principal); R68.81 Early satiety; R19.8 Other specified symptoms and signs involving the digestive system and abdomen
CPT/HCPCS: 74177; Q9967

== ENCOUNTER 2021-09-06 10:22 | Day surgery (SDC) | payer OTHER, SELFPAY ==
[2021-09-06] MEDS: Lactated Ringers 1,000 ML 15 ML IV (10:40)
[2021-09-06 11:06] VITALS: BP 139/85; PULSE 65; RESP 16; TEMP 36.4; O2SAT 98; BMI 34.1
[2021-09-06 11:25] LABS: Bedside Glucose 126 mg/dL (74-106)
--- NOTE | 2021-09-06 12:00 | IMM_PTH ---
PATIENT: LETY MEADOWS LOC: [facility] U#:[id number] AGE/SX: 55/F ROOM: RE09/06/[address]: Dr. Joshua Goldberg DO : 1965 BED: DIS: 09/06/2021 SPEC #: [id number] RECD: 09/07/21 11:57 STATUS: NII [place] #: [id number] NIRAJ: 09/06/21 12:[address]: Joshua Goldberg DEPT: IMMUNOHISTOCHEMISTRY RECD BY: Margarita Warren ENTERED: 09/07/21 12:02 SP TYPE: IMMUNO OTHR DR: Dr. Jonine Guardado MD Tissues: B - Stomach, NOS Procedures: H Pylori (initial) Comments: @ Specimen number changed from [id number] to [id number] @ on 09/07/21 at 1214 by RGOOD. PHYSICIAN & INSTITUTION [place] [id number] SPECIMEN INFORMATION: Tissue Source: B ? 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 Localization is made via biotin free immunoperoxidase method. Appropriate controls are performed and reacted as expected. Results on target cell population are indicated in the following table: RESULTS: ANTIBODY / CLONE RESULT Block B H Pylori (polyclonal) negative These tests were developed and their performance characteristics determined by [facility]. They may not have been cleared or approved by the U.S. Food and Drug Administration. The FDA has determined that such clearance or approval is not necessary. The above immunohistochemical/dualISH markers are ordered and reviewed by the Pathologist. INTERPRETATION: B. Antral ulcer, biopsy: Negative for Helicobacter pylori organisms. AM:kita 09/08/2021
--- NOTE | 2021-09-06 12:00 | COLBX_PTH ---
PATIENT: LETY MEADOWS LOC: EN U#:[id number] AGE/SX: 55/F ROOM: RE09/06/[address]: Dr. Joshua Goldberg DO : 1965 BED: DIS: 09/06/2021 SPEC #: [id number] RECD: 09/06/21 14:23 STATUS: NII THEE #: [id number] NIRAJ: 09/06/21 12:[address]: Joshua Goldberg DEPT: SURGICAL PATHOLOGY RECD BY: Andrei Pickett ENTERED: 09/07/21 08:48 SP TYPE: COLON BX OTHR DR: Dr. 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 pylori, C - Pylorus biopsy, D - Gastric body biopsy, E - Distal esophagus biopsy, F - Cecal polyp, G - Terminal ileum biopsy, H - Ascending polyp biopsy, I - Random colonic biopsy MICROSCOPIC DIAGNOSIS A. Duodenum, biopsy: No pathologic change. B. Gastric antral ulcer, biopsy: Chronic gastritis. See comment. C. Gastric pylorus, biopsy: Chronic gastritis. D. Gastric body, biopsy: Chronic gastritis. E. Distal esophagus, biopsy: Gastroesophageal junctional mucosa with chronic inflammation. Focal changes of reflux. No evidence of goblet cell metaplasia. See comment. F. Cecal polyp, biopsy: Tubular adenoma with cautery artifact. G. Terminal ileum, biopsy: No pathologic change. H. Ascending colon polyp, biopsy: Fragments of tubular adenoma. I. Colon, random biopsy: No pathologic change. AM:kita 09/08/2021 COMMENT B. The results of immunohistochemistry for Helicobacter pylori will be reported separately ([id number]). E. Alcian blue/PAS stain with matched control supports the above diagnosis. MICROSCOPIC DESCRIPTION Slides are reviewed. GROSS DESCRIPTION A - Received in fixative is one container labeled with the patient's name and designated duodenum biopsy. The specimen consists of multiple irregular fragments of light [place] soft tissue that in aggregate measure 0.5 x 0.3 x 0.1 cm. The specimen is totally submitted in one cassette. B - Received in fixative is one container labeled with the patient's name and designated antral ulcer biopsy. The specimen consists of one irregular fragment of light [place] soft tissue that measures 0.5 x 0.2 x 0.1 cm. The specimen is totally submitted in one cassette. C - Received in fixative is one container labeled with the patient's name and designated pylorus biopsy. The specimen consists of two irregular fragments of light [place] soft tissue that in aggregate measure 0.6 x 0.3 x 0.1 cm. The specimen is totally submitted in one cassette. D - Received in fixative is one container labeled with the patient's name and designated gastric body biopsy. The specimen consists of one irregular fragment of light [place] soft tissue that measures 0.3 x 0.3 x 0.1 cm. The specimen is totally submitted in one cassette. E - Received in fixative is one container labeled with the patient's name and designated distal esophagus biopsy. The specimen consists of multiple irregular fragments of light [place] soft tissue that in aggregate measure 0.8 x 0.3 x 0.1 cm. The specimen is totally submitted in one cassette. F - Received in fixative is one container labeled with the patient's name and designated cecal polyp. The specimen consists of one irregular fragment of light [place] soft tissue that measures 0.6 x 0.2 x 0.1 cm. The specimen is totally submitted in one cassette. G - Received in fixative is one container labeled with the patient's name and designated terminal ileum. The specimen consists of one irregular fragment of light [place] soft tissue that measures 0.5 x 0.4 x 0.1 cm. The specimen is totally submitted in one cassette. H - Received in fixative is one container labeled with the patient's name and designated ascending polyp biopsy. The specimen consists of multiple irregular fragments of light [place] soft tissue that in aggregate measure 1.3 x 0.5 x 0.1 cm. The specimen is totally submitted in one cassette. I - Received in fixative is one container labeled with the patient's name and designated random colonic biopsy. The specimen consists of multiple irregular fragments of light [place] soft tissue that in aggregate measure 1.5 x 0.6 x 0.1 cm. The specimen is totally submitted in one cassette. / SJ:rg 09/07/2021 TC:3 CPT: 64105 x9, [id number]
--- NOTE | 2021-09-06 12:16 | PCM.HP.BLA ---
History and Physical Date of Admission: 09/06/21 LETY MEADOWS, is a 55 F who presents to the office today for acid reflux which has significantly worsening in past 1.5 yrs. She has had acid reflux for many years. Taking omeprazole 40 mg QAM and omeprazole 20 mg QPM, but still having nocturnal symptoms which wake her up. Voice is hoarse. Sometimes gets sore throat. Feeling like food is sticking lately. Very tired since her sleep is so disrupted. Intermittent periods of nausea, can last for day. No vomiting. Feels full quickly. Gets bloated. Eating low carb so doesn't feel gassy. Gets pain RUQ and LUQ, no pattern, not related to eating, radiates to back, reminds her of gallbladder pain but she's had cholecystectomy. BMs were daily; now not every day, but doesn't feel constipated necessarily; occas pain lower abd midline. No melena or hematochezia. Ramin works here Hx thyroid cancer that spread to lymph node--thyroidectomy/lymph nodes excised, radiation pill, had trouble swallowing then before she was treated; cervical cancer--hysterectomy; BCC skin cancer on nose 05/08/[address] Kirby Ellison in [place]: small hiatal hernia, erythema in lower third of esophagus; Bx: chronic esophagitis, +Bradshaw's, negative dysplasia Had colonoscopy about 5 yrs ago, had several polyps Comorbidities include seasonal affective disorder, anxiety, thyroid cancer spread to the lymph node, postoperative hypothyroidism, carpal tunnel syndrome, basal cell carcinoma, cervical cancer, carpal tunnel, headaches, type 2 diabetes, GERD with Bradshaw's esophagus, hypertension, seasonal allergies, history of colon polyps Past surgical history: Laparoscopy for endometriosis, bilateral breast reduction, hysterectomy, thyroidectomy, tubal ligation, cholecystectomy ROS Const Constitutional: No fatigue ENT ENT: Positive for difficulty swallowing Gastro GI: Positive for change in bowel habits, heartburn and difficulty swallowing; No abdominal pain, belching, bloating, change in stool character, coffee ground emesis, constipation, cramping, diarrhea, feeling full early, excessive flatus, incontinent of stools, Vomiting blood/hematemesis, Blood in stool, loose stools, Black,tarry stools, nausea/dyspepsia, pain with swallowing, vomiting or other Musc Musculoskeletal: Positive for back pain, muscle cramps, numbness, stiffness, tingling, Arthritis and restless legs; No joint pain Skin Skin: No yellowing of the eye or itchy eyes Neuro Neurology: Positive for numbness, tingling and restless legs Psych Psychiatric: Positive for anxiety and Positive for depression Endo Endocrine: No fatigue Aller/Imm Allergy/Immunologic: No itchy eyes Martell/Lymp Hematologic/Lymphatic: No easy bleeding or easy bruising Exam Const General: cooperative, comfortable and well developed Nutritional Appearance: obese HENMT Head: normal to inspection Eyes General: appearance normal, both eyes and all related structures Resp Effort & Inspection: normal respiratory effort GI Inspection: normal to inspection Palpation: soft, no hepatosplenomegaly, no masses and tender in the epigastrum Skin General: no rashes or lesions noted Psych Mood: euthymic mood Affect: normal affect Quality Reporting Tobacco Screening ([facility] 138) Smoking Status: Never smoker Assessment and Plan Assessment and Plan (1) GERD (gastroesophageal reflux disease): ?Status:?Chronic ?Plan: 55-year-old female with a long history of acid reflux with Bradshaw's esophagus.? She currently has significant acid reflux not controlled with PPI therapy.? Increase omeprazole to 40 mg twice daily.? We will check a gastric emptying study, she is at risk for gastroparesis considering type 2 diabetes.? She does have nausea and early satiety, and some mild epigastric tenderness on exam.? Because of her constellation of symptoms which also includes lower abdominal pain and change of bowel pattern, we will also get CT of her abdomen pelvis with oral and IV contrast.? Biochemical work-up to include testing for celiac, inflammatory markers, CBC, CMP, gastrin level, autoimmune.? She has a history of 3 different cancers.? She has a history of Bradshaw's esophagus.? She will be scheduled for EGD to be evaluated for esophagitis, Bradshaw's esophagus, peptic ulcer disease, malignancy, and will also be scheduled for screening colonoscopy considering history of colon polyps.? We may need to consider esophagram considering dysphagia.? I will notify her of results as they are available.? She will have follow-up in approximately 6 weeks, as well as 2 weeks after her endoscopy to discuss biopsy results. (2) Nausea: ?Status:?Acute (3) Early satiety: ?Status:?Acute (4) Altered bowel function: ?Status:?Acute (5) Lower abdominal pain: ?Status:?Acute (6) Bradshaw's esophagus: ?Status:?Acute ? ? ? Orders: Orders Gastric Emptying Study Today K21.9 - Gastro-esophageal reflux disease without esophagitis, R11.0 - Nausea, R68.81 - Early satiety ? Abdomen/Pelvis WITH Contrast Today R10.30 - Lower abdominal pain, unspecified, R19.8 - Other specified symptoms and signs involving the digestive system and abdomen, R68.81 - Early satiety ? Comprehensive Metabolic Profil Today K21.9 - Gastro-esophageal reflux disease without esophagitis, R10.30 - Lower abdominal pain, unspecified, R11.0 - Nausea, R19.8 - Other specified symptoms and signs involving the digestive system and abdomen ? CRP Today K21.9 - Gastro-esophageal reflux disease without esophagitis, R10.30 - Lower abdominal pain, unspecified, R11.0 - Nausea, R19.8 - Other specified symptoms and signs involving the digestive system and abdomen ? CBC W/Diff, Automated Today K21.9 - Gastro-esophageal reflux disease without esophagitis, R10.30 - Lower abdominal pain, unspecified, R11.0 - Nausea, R19.8 - Other specified symptoms and signs involving the digestive system and abdomen ? Erythrocyte Sed Rate Today K21.9 - Gastro-esophageal reflux disease without esophagitis, R10.30 - Lower abdominal pain, unspecified, R11.0 - Nausea, R19.8 - Other specified symptoms and signs involving the digestive system and abdomen ? SUKHJINDER Comprehensive Panel Today K21.9 - Gastro-esophageal reflux disease without esophagitis, R10.30 - Lower abdominal pain, unspecified, R11.0 - Nausea, R19.8 - Other specified symptoms and signs involving the digestive system and abdomen ? Celiac Disease Profile Today K21.9 - Gastro-esophageal reflux disease without esophagitis, R10.30 - Lower abdominal pain, unspecified, R11.0 - Nausea, R19.8 - Other specified symptoms and signs involving the digestive system and abdomen ? Gastrin, Serum Today K21.9 - Gastro-esophageal reflux disease without esophagitis, R10.30 - Lower abdominal pain, unspecified, R11.0 - Nausea, R19.8 - Other specified symptoms and signs involving the digestive system and abdomen ? Medications: Changed From omeprazole 40 mg? PO DAILY 90 caps 2RF ? ? To omeprazole 40 mg? PO BID 180 caps 0RF ? ? Discontinued venlafaxine ER ?? Take 1 tablet daily x 2 weeks then increase to 2 tablets daily. ?? Discontinued Reason:? Pt no longer taking 37.5 mg? PO DAILY 60 tabs 1RF ? ? I have re-examined the patient. There are no clinical changes since date of exam.
[2021-09-06 13:00] VITALS: BP 102/68; BP 139/85; PULSE 72; RESP 16; TEMP 36.7; O2SAT 96
--- NOTE | 2021-09-06 13:02 | OP.EGD_ITS ---
Patient Name: Neal Pathak Procedure Date: 09/06/2021 11:19 AM Date of : 1965 Age: 55 Procedure: Upper GI endoscopy Indications: Epigastric abdominal pain, Dyspepsia, Indigestion, Heartburn, Suspected esophageal reflux Providers: Joshua Goldberg DO Referring MD: Jonnie Guardado MD Medicines: Monitored Anesthesia Care Patient Profile: This is a 55 year old female. Refer to note in patient chart for documentation of history and physical. Patient has symptoms of acute epigastric abdominal pain and chronic heartburn. She is status post colonoscopy for biopsy and EGD for Bradshaw's biopsy. Complications: No immediate complications. Procedure: Pre-Anesthesia Assessment: - Prior to the procedure, a History and Physical was performed, and patient medications and allergies were reviewed. The patient is competent. The risks and benefits of the procedure and the sedation options and risks were discussed with the patient. All questions were answered and informed consent was obtained. Patient identification and proposed procedure were verified by the physician in the pre-procedure area. Mental Status Examination: alert and oriented. Airway Examination: normal oropharyngeal airway and neck mobility. Respiratory Examination: clear to auscultation. CV Examination: normal. Prophylactic Antibiotics: The patient does not require prophylactic antibiotics. Prior Anticoagulants: The patient has taken no previous anticoagulant or antiplatelet agents. After reviewing the risks and benefits, the patient was deemed in satisfactory condition to undergo the procedure. The anesthesia plan was to use moderate sedation / analgesia (conscious sedation). Immediately prior to administration of medications, the patient was re-assessed for adequacy to receive sedatives. The heart rate, respiratory rate, oxygen saturations, blood pressure, adequacy of pulmonary ventilation, and response to care were monitored throughout the procedure. The physical status of the patient was re-assessed after the procedure. After obtaining informed consent, the endoscope was passed under direct vision. Throughout the procedure, the patient's blood pressure, pulse, and oxygen saturations were monitored continuously. The Colonoscope was introduced through the mouth, and advanced to the second part of duodenum. The upper GI endoscopy was accomplished without difficulty. The patient tolerated the procedure well. Scope In: 12:28:12 PM Scope Out: 12:35:52 PM Total Procedure Duration Time 0 hours 7 minutes 40 seconds Findings: The Z-line was irregular and was found 38 cm from the incisors. Biopsies were taken with a cold forceps for histology. Verification of patient identification for the specimen was done. Estimated blood loss was minimal. A small hiatal hernia was present. Two 5 mm no bleeding angiodysplastic lesions were found on the lesser curvature of the stomach. Patchy moderately erythematous mucosa without bleeding was found in the gastric body. Biopsies were taken with a cold forceps for histology. Verification of patient identification for the specimen was done by the physician. Estimated blood loss was minimal. Patchy mildly erythematous mucosa without active bleeding and with no stigmata of bleeding was found in the duodenal bulb. Biopsies were taken with a cold forceps for histology. Verification of patient identification for the specimen was done. Estimated blood loss was minimal. A few 2 mm sessile polyps with no bleeding and no stigmata of recent bleeding were found in the gastric fundus. Impression: - Z-line irregular, 38 cm from the incisors. Biopsied. - Small hiatal hernia. - Two non-bleeding angiodysplastic lesions in the stomach. - Erythematous mucosa in the gastric body. Biopsied. - Erythematous duodenopathy. Biopsied. - A few gastric polyps. Recommendation: - Discharge patient to home. - Resume previous diet. - Continue present medications. - Await pathology results. - Repeat upper endoscopy in 1 year for surveillance based on pathology results. Procedure Code(s): --- Professional --- 46515, Esophagogastroduodenoscopy, flexible, transoral; with biopsy, single or multiple CPT copyright 2017 [employer]. All rights reserved. The codes documented in this report are preliminary and upon dock supervisor review may be revised to meet current compliance requirements. Joshua Goldberg DO 09/06/2021 1:02:07 PM This report has been signed electronically. Number of Addenda: 1 Note Initiated On: 09/06/2021 11:19 AM Addendum Number: 1 Addendum Date: 11/30/2021 6:22:14 AM MAC was used as sedation for this procedure. Joshua Goldberg DO 11/30/2021 6:22:18 AM This report has been signed electronically.
--- NOTE | 2021-09-06 13:03 | OP.CCLET_ITS ---
11/30/2021 Jonnie Guardado MD [address] [place] [address] [place] [address] Re : Upper GI endoscopy procedure for Neal Pathak Dear Dr. Guardado This procedure was performed on Monday, September 06, 2021. My impressions and recommendations are as follows: Impressions : - Z-line irregular, 38 cm from the incisors. Biopsied. - Small hiatal hernia. - Two non-bleeding angiodysplastic lesions in the stomach. - Erythematous mucosa in the gastric body. Biopsied. - Erythematous duodenopathy. Biopsied. - A few gastric polyps. Recommendations : - Discharge patient to home. - Resume previous diet. - Continue present medications. - Await pathology results. - Repeat upper endoscopy in 1 year for surveillance based on pathology results. My findings are described in the full procedure note, which is enclosed. If I can be of further assistance, please feel free to contact me at . Sincerely, Joshua Goldberg, 09/06/2021 1:02:07 PM This report has been signed electronically.
[2021-09-06 13:05] VITALS: BP 139/85; BP 97/53; PULSE 74; RESP 16; O2SAT 98
[2021-09-06 13:10] VITALS: BP 100/53; BP 139/85; PULSE 67; RESP 16; O2SAT 98
--- NOTE | 2021-09-06 13:10 | OP.COLON_ITS ---
Patient Name: Neal Pathak Procedure Date: 09/06/2021 12:36 PM Date of : 1965 Age: 55 Procedure: Colonoscopy Indications: Screening for colorectal malignant neoplasm Providers: Joshua Goldberg DO Referring MD: Jonnie Guardado MD Medicines: Monitored Anesthesia Care Patient Profile: This is a 55 year old female. Refer to note in patient chart for documentation of history and physical. Patient has symptoms of acute epigastric abdominal pain and chronic heartburn. She is status post colonoscopy for biopsy and EGD for Bradshaw's biopsy. She is status post colonoscopy for polyp removal three years ago. Last Colonoscopy: 3 years ago. Complications: No immediate complications. Procedure: Pre-Anesthesia Assessment: - Prior to the procedure, a History and Physical was performed, and patient medications and allergies were reviewed. The patient is competent. The risks and benefits of the procedure and the sedation options and risks were discussed with the patient. All questions were answered and informed consent was obtained. Patient identification and proposed procedure were verified by the physician in the pre-procedure area. Mental Status Examination: alert and oriented. Airway Examination: normal oropharyngeal airway and neck mobility. Respiratory Examination: clear to auscultation. CV Examination: normal. Prophylactic Antibiotics: The patient does not require prophylactic antibiotics. Prior Anticoagulants: The patient has taken no previous anticoagulant or antiplatelet agents. After reviewing the risks and benefits, the patient was deemed in satisfactory condition to undergo the procedure. The anesthesia plan was to use moderate sedation / analgesia (conscious sedation). Immediately prior to administration of medications, the patient was re-assessed for adequacy to receive sedatives. The heart rate, respiratory rate, oxygen saturations, blood pressure, adequacy of pulmonary ventilation, and response to care were monitored throughout the procedure. The physical status of the patient was re-assessed after the procedure. After I obtained informed consent, the scope was passed under direct vision. Throughout the procedure, the patient's blood pressure, pulse, and oxygen saturations were monitored continuously. The Colonoscope was introduced through the anus and advanced to the terminal ileum. The colonoscopy was performed without difficulty. The patient tolerated the procedure well. The quality of the bowel preparation was good. Scope In: 12:38:16 PM Scope Withdrawal Time 0 hours 14 minutes 4 seconds Scope Out: 12:55:01 PM Total Procedure Duration Time 0 hours 16 minutes 45 seconds Findings: The perianal and digital rectal examinations were normal. Two sessile polyps were found in the ascending colon and cecum. The polyps were 1 to 2 mm in size. These polyps were removed with a hot snare. Resection and retrieval were complete. Verification of patient identification for the specimen was done. Estimated blood loss was minimal. An area of mildly congested mucosa was found in the rectum, in the recto-sigmoid colon, in the sigmoid colon, in the descending colon, at the splenic flexure, in the transverse colon, at the hepatic flexure and in the ascending colon. Biopsies were taken with a cold forceps for histology. Verification of patient identification for the specimen was done. Estimated blood loss was minimal. A patchy area of the terminal ileum was congested. Biopsies were taken with a cold forceps for histology. Verification of patient identification for the specimen was done. Estimated blood loss was minimal. Impression: - Two 1 to 2 mm polyps in the ascending colon and in the cecum, removed with a hot snare. Resected and retrieved. - Congested mucosa in the rectum, in the recto-sigmoid colon, in the sigmoid colon, in the descending colon, at the splenic flexure, in the transverse colon, at the hepatic flexure and in the ascending colon. Biopsied. - Congested mucosa in the terminal ileum. Biopsied. Recommendation: - Discharge patient to home. - Resume previous diet. - Continue present medications. - Await pathology results. - Repeat colonoscopy in 3 years for surveillance. Procedure Code(s): --- Professional --- 15005, Colonoscopy, flexible; with removal of tumor(s), polyp(s), or other lesion(s) by snare technique 94716, 59, Colonoscopy, flexible; with biopsy, single or multiple CPT copyright 2017 [employer]. All rights reserved. The codes documented in this report are preliminary and upon ceramics machine operator review may be revised to meet current compliance requirements. Joshua Goldberg DO 09/06/2021 1:10:01 PM This report has been signed electronically. Number of Addenda: 1 Note Initiated On: 09/06/2021 12:36 PM Addendum Number: 1 Addendum Date: 11/30/2021 6:22:27 AM MAC was used as sedation for this procedure. Joshua Goldberg DO 11/30/2021 6:22:33 AM This report has been signed electronically.
--- NOTE | 2021-09-06 13:11 | OP.CCLET_ITS ---
11/30/2021 Jonnie Guardado MD [address] [place] [address] [place] [address] Re : Colonoscopy procedure for Neal Pathak Dear Dr. Guardado This procedure was performed on Monday, September 06, 2021. My impressions and recommendations are as follows: Impressions : - Two 1 to 2 mm polyps in the ascending colon and in the cecum, removed with a hot snare. Resected and retrieved. - Congested mucosa in the rectum, in the recto-sigmoid colon, in the sigmoid colon, in the descending colon, at the splenic flexure, in the transverse colon, at the hepatic flexure and in the ascending colon. Biopsied. - Congested mucosa in the terminal ileum. Biopsied. Recommendations : - Discharge patient to home. - Resume previous diet. - Continue present medications. - Await pathology results. - Repeat colonoscopy in 3 years for surveillance. My findings are described in the full procedure note, which is enclosed. If I can be of further assistance, please feel free to contact me at . Sincerely, Joshua Goldberg, 09/06/2021 1:10:01 PM This report has been signed electronically.
[2021-09-06 13:15] VITALS: BP 106/63; BP 139/85; PULSE 71; RESP 16; TEMP 36.1; O2SAT 96
== END 2021-09-06 13:39 | disposition home or self-care (01) ==
LOC: EN 10:23 → AC 10:25
PROVIDERS: PCP Internal Medicine; Referring Provider Internal Medicine; Visit Provider Internal Medicine Gastroenterology
PROC: 0DJD8ZZ Inspection of Lower Intestinal Tract, Via Natural or Artificial Opening Endoscopic (ICD-10-PCS; CPT 45378; principal; 2021-09-06 11:55)
DX: K29.50 Unspecified chronic gastritis without bleeding (principal); E11.9 Type 2 diabetes mellitus without complications; D12.0 Benign neoplasm of cecum; D12.2 Benign neoplasm of ascending colon; K22.70 Barrett's esophagus without dysplasia; F41.0 Panic disorder [episodic paroxysmal anxiety]; Z85.850 Personal history of malignant neoplasm of thyroid; Z79.84 Long term (current) use of oral hypoglycemic drugs; Z79.899 Other long term (current) drug therapy; K76.0 Fatty (change of) liver, not elsewhere classified; Z87.440 Personal history of urinary (tract) infections; K58.9 Irritable bowel syndrome, unspecified; Z87.19 Personal history of other diseases of the digestive system; K44.9 Diaphragmatic hernia without obstruction or gangrene; K31.7 Polyp of stomach and duodenum; K31.819 Angiodysplasia of stomach and duodenum without bleeding; K21.9 Gastro-esophageal reflux disease without esophagitis; Z85.828 Personal history of other malignant neoplasm of skin; Z86.010 Personal history of colon polyps; Z85.41 Personal history of malignant neoplasm of cervix uteri
CPT/HCPCS: 45385; 43239; 45380; 82962; 88305; 88313; 88342; J7120; J2405

== ENCOUNTER → 2021-09-15 | Outpatient (CLI) | payer OTHER, SELFPAY ==
--- NOTE | 2021-09-15 11:51 | NM_ITS ---
EXAM: NM GASTRIC EMPTYING SCAN CLINICAL INDICATION: early satiety, nausea, uncontrolled reflux, TECHNIQUE: Patient was fed oatmeal containing 1.1 mCi of Tc99m sulfur colloid. Images of the abdomen were obtained over a period of one hour. Half time of gastric emptying and percent retention of radionuclide activity were calculated. This report was created using Stockpile report generation technology. COMPARISON: None. FINDINGS: STOMACH: 50% gastric emptying noted at 30 minutes and 90% emptying at 60 minutes. NM/Gastric Emptying Study IMPRESSION: Normal gastric emptying time with solids. Electronically Signed: Bandar Betancur MD at 7:23 EDT ,
== END | disposition home or self-care (01) ==
LOC: NM 11:50
PROVIDERS: PCP Internal Medicine; Referring Provider Nurse Practitioner Adult Health; Visit Provider Nurse Practitioner Adult Health
DX: R11.0 Nausea (principal); R68.81 Early satiety; K21.9 Gastro-esophageal reflux disease without esophagitis
CPT/HCPCS: 78264; A9541

== ENCOUNTER → 2021-09-26 | Outpatient (CLI) | payer OTHER, SELFPAY ==
--- NOTE | 2021-09-26 09:02 | NM_ITS ---
CLINICAL: 56-year-old female with history of hypercholesterolemia. OCTREOTIDE-SOMATOSTATIN RECEPTOR SCINTIGRAPHY COMPARISON: CT of the abdomen-pelvis report 08/26/2021 FINDINGS: Following the intravenous administration of 6.2 mCi of In 111 Octreotide, whole body, spot planar projections and emission computed tomographic reconstructions of the abdomen and pelvis obtained at 24 and 48 hours post radiopharmaceutical administration reveal: 1. Planar projections at both 24 and 48 hours demonstrate uniform distribution of the radiopharmaceutical in the hepatic and splenic parenchyma. There is normal visualization of the bilateral renal units, and visualized intestinal tract. No abnormal tracer concentration is identified. 2. SPECT reconstructions reveal heterogeneous distribution of the tracer in the hepatic parenchyma with otherwise no evidence of abnormal increased radiopharmaceutical concentration. NM/Tumor Imaging WB 2+ Days IMPRESSION: 1. Nonuniform distribution of the radiotracer on SPECT reconstructions only in the hepatic parenchyma is of uncertain significance. Correlation with magnetic resonance imaging may be of benefit. Electronically Signed: Rafael Bishop, at 16:10 EDT ,
== END | disposition home or self-care (01) ==
PROVIDERS: PCP Internal Medicine; Referring Provider Nurse Practitioner Adult Health; Visit Provider Nurse Practitioner Adult Health
DX: E16.4 Increased secretion of gastrin (principal)
CPT/HCPCS: 78803; 78804; A9572

== ENCOUNTER → 2021-10-12 | Outpatient (CLI) | payer OTHER, SELFPAY ==
[2021-10-12 18:10] LABS: Prolactin 3.7 ng/mL; Thyroid Stim Hormone (TSH) 1.13 uIU/mL (0.358-3.74)
[2021-10-12 18:19] LABS: PTHIN 25.2 pg/mL (18.4-80.1)
== END | disposition home or self-care (01) ==
PROVIDERS: PCP Internal Medicine; Referring Provider Nurse Practitioner Adult Health; Visit Provider Nurse Practitioner Adult Health
DX: E16.4 Increased secretion of gastrin (principal)
CPT/HCPCS: 36415; 83970; 84146; 84443

== ENCOUNTER 2022-02-03 14:24 | Emergency (ER) | payer OTHER, SELFPAY ==
[2022-02-03 14:25] VITALS: BP 141/77; PULSE 110; RESP 18; TEMP 36.6; O2SAT 94; BMI 34.2
[2022-02-03 14:28] VITALS: BP 141/77; PULSE 110; RESP 18; TEMP 36.6; O2SAT 94
[2022-02-03 14:47] VITALS: O2SAT 95
--- NOTE | 2022-02-03 14:58 | EDS_ITS ---
HPI History of Present Illness Chief Complaint: Shortness of Breath Narrative Narrative: [id number] female presented with cough, fever, chills, scratchy throat x7 days. She states she has felt rundown and has not care physician. He admits to having some diarrhea as well. Her fevers have resolved. She does admit to a lot of sneezing and rhinorrhea. She feels as if she might be wheezing. She does not have COPD or asthma. [facility] Medical History Abnormal findings on esophagogastroduodenoscopy (EGD) Anxiety and depression Arthritis Cancer Carpal tunnel syndrome Chronic bronchitis Chronic headaches Diabetes Fatty liver Gallstones Gastrointestinal problem GERD (gastroesophageal reflux disease) Health care maintenance Heart murmur HTN (hypertension) Hypoglycemia IBS (irritable bowel syndrome) Liver disease Malignant neoplasm of thyroid gland Pneumonia Seasonal allergies surgery to r hand Thyroid cancer Trigger finger UTI (urinary tract infection) Wears glasses Home Medications calcium carbonate 600 mg calcium (1,500 mg) tablet (Calcium) 600 mg PO BID 11/27/18 [History Last Taken 09/05/21] cholecalciferol (vitamin D3) 25 mcg (1,000 unit) capsule 1,000 unit PO DAILY 11/27/18 [History Last Taken 09/05/21] omega-3 fatty acids 1,000 mg capsule (Fish Oil Concentrate) 1,000 mg PO DAILY 11/27/18 [History Last Taken 09/05/21] glimepiride 4 mg tablet 4 mg PO QAM #90 tabs 08/09/21 [Rx Last Taken 09/05/21] omeprazole 40 mg capsule,delayed release 40 mg PO BID #180 caps 08/22/21 [Rx Last Taken 09/05/21] empagliflozin 25 mg tablet 25 mg PO QAM #90 tabs 12/12/21 [Rx Last Taken Unknown] levothyroxine 137 mcg tablet 137 mcg PO DAILY #90 tabs 12/12/21 [Rx Last Taken Unknown] metformin 1,000 mg tablet 1,000 mg PO BID #180 tabs 12/12/21 [Rx Last Taken Unknown] lisinopril 5 mg tablet 5 mg PO DAILY #90 tabs 01/26/22 [Rx Last Taken Unknown] albuterol sulfate 90 mcg/actuation aerosol inhaler 2 inh inhalation Q6H PRN shortness of breath or wheezing #6.7 grams 02/03/22 [Rx Last Taken Unknown] Allergy/AdvReac Type Severity Reaction Status Date / Time adhesive tape Allergy Intermediate Swelling Verified 02/03/22 14:25 cephalexin [From Keflex] Allergy Intermediate Rash Verified 02/03/22 14:25 Sulfa (Sulfonamide Allergy Intermediate Unknown Verified 02/03/22 14:25 Antibiotics) sulfamethoxazole Allergy Intermediate Rash Verified 02/03/22 14:25 [From Bactrim] trimethoprim [From Bactrim] Allergy Intermediate Rash Verified 02/03/22 14:25 Family History Unknown Anemia Anxiety Arthritis Breast cancer Cervical cancer Diabetes Depression Hypertension Respiratory disease Seizures Thyroid disorder Lupus Aunt Ovarian cancer Surgical History Endometriosis determined by laparoscopy History of bilateral breast reduction surgery History of hysterectomy History of removal of cervix but not uterus History of thyroidectomy History of tubal ligation Hx of cholecystectomy Social History Smoking Status: Never smoker alcohol intake: never substance use type: does not use what type of physical activity do you participate in: walking EXAM Physical Exam Const Vital Signs: 02/03/22 14:25 02/03/22 14:47 02/03/22 14:28 Temperature 98 F 98 F Temperature Source Temporal Temporal Pulse Rate 110 H 110 H Respiratory Rate 18 18 Respiratory Effort Normal Respiratory Depth Normal Respiratory Pattern Normal Blood Pressure 141/77 H 141/77 H Blood Pressure Mean 98 98 Pulse Ox 94 94 Oxygen Delivery Method Room Air Room Air Room Air 02/03/22 15:14 Temperature Temperature Source Pulse Rate 88 Respiratory Rate 20 H Respiratory Effort Respiratory Depth Respiratory Pattern Normal Blood Pressure Blood Pressure Mean Pulse Ox Oxygen Delivery Method Positive well nourished General Appearance ED: NAD; Negative for pallor HEENT Reports moist mucous membranes Eyes PERRL and EOMs intact bilaterally General Eye ED: Negative for pale conjunctiva or scleral icterus Resp normal respiratory effort and clear to auscultation bilaterally Auscultation: Negative for rales, rhonchi or wheezes Cardio regular rate and regular rhythm GI normal to inspection, nondistended, normoactive bowel sounds Neuro oriented x3 and CN's II-XII intact bilaterally Sensorium / Orientation: alert Psych mental status grossly normal Skin no rashes or lesions noted General Skin Exam: Negative for jaundice or pallor MDM MDM MDM Narrative Medical decision making narrative: Patient presenting with generalized illness. She had fevers, chills, body aches but is improved. She still has a cough and rhinorrhea. This has been ongoing for several days and I do not think she needs viral testing. Ordered a two-view chest x-ray which on my interpretation shows no acute cardiopulmonary process. The patient requested a DuoNeb even though she is not wheezing on exam. This was given to her. Discussed her normal chest x-ray with her. She requests an albuterol inhaler for home. Patient discharged home in stable condition. Impression: 1. Viral syndrome 2. Radiography Diagnostic Testing: Clinical Impression(s) from Imaging Studies Chest X-Ray 02/03/22 16:09 IMPRESSION: No acute abnormal cardiopulmonary finding. Electronically Signed: Elpidio Ward MD at 16:30 EST , Discharge Plan Triage Chief Complaint: Shortness of Breath ED Provider: Aime Burks Dx/Rx/DC Orders Instructions: ED Dyspnea, ED URI, Viral, No Abx (Adult) Prescriptions: New albuterol sulfate 90 mcg/actuation HFA aerosol inhaler 2 inh inhalation Q6H PRN (Reason: shortness of breath or wheezing) Qty: 6.7 0RF No Action cholecalciferol (vitamin D3) 1,000 unit capsule 1,000 unit PO DAILY calcium carbonate [Calcium 600] 600 mg calcium (1,500 mg) tablet 600 mg PO BID omega-3 fatty acids [Fish Oil Concentrate] 1,000 mg capsule 1,000 mg PO DAILY omeprazole 40 mg capsule,delayed release(DR/EC) 40 mg PO BID Qty: 180 0RF glimepiride 4 mg tablet 4 mg PO QAM Qty: 90 3RF levothyroxine 137 mcg tablet 137 mcg PO DAILY Qty: 90 2RF empagliflozin 25 mg tablet 25 mg PO QAM Qty: 90 2RF metformin 1,000 mg tablet 1,000 mg PO BID Qty: 180 3RF lisinopril 5 mg tablet 5 mg PO DAILY Qty: 90 1RF Primary Care Provider: Jonnie Guardado Referrals: Jonnie Guardado MD [Primary Care Provider] - Disposition Disposition: Home, Self Care
[2022-02-03 15:14] VITALS: PULSE 88; RESP 20
[2022-02-03] MEDS: Ipratropium/Albuterol Sulfate 3 ML AMPUL.NEB INHALATION (15:14)
--- NOTE | 2022-02-03 16:09 | RAD_ITS ---
STUDY: X-RAY CHEST REASON FOR EXAM: Female, 56 years old. Cough TECHNIQUE: Portable, upright, AP chest x-ray COMPARISON: 09/17/2020 FINDINGS: The lungs are clear and expanded. There is no demonstrated pleural abnormality. Normal size heart. Normal mediastinum and leslie. Normal visualized pulmonary arteries. Normal visualized aortic arch and descending thoracic aorta. There is no demonstrated abnormality of the visualized soft tissue structures of the upper abdomen. RAD/Chest 1 View (Portable) IMPRESSION: No acute abnormal cardiopulmonary finding. Electronically Signed: Elpidio Ward MD at 16:30 EST ,
== END 2022-02-03 18:29 | disposition home or self-care (01) ==
PROVIDERS: Emergency Provider Student in an Organized Health Care Education/Training Program; PCP Internal Medicine; Visit Provider Student in an Organized Health Care Education/Training Program
DX: B34.9 Viral infection, unspecified (principal); E11.9 Type 2 diabetes mellitus without complications; I10 Essential (primary) hypertension
CPT/HCPCS: 71045; 99282

== ENCOUNTER → 2022-03-31 | Outpatient (CLI) | payer OTHER, SELFPAY ==
--- NOTE | 2022-03-31 13:08 | MRI_ITS ---
EXAM: MR ABDOMEN WITHOUT AND WITH INTRAVENOUS CONTRAST CLINICAL INDICATION: elevated chromagranin A, hypergastrinemia TECHNIQUE: Multiplanar and multisequence MR images of the abdomen without and with intravenous contrast. This report was created using [employer] 3D report [employer] technology. CONTRAST: IV 18mL CLARISCAN COMPARISON: None. FINDINGS: ARTIFACTS: Motion artifact limits assessment LOWER THORAX: Lung bases are clear. Small hiatal hernia. No pleural effusion. LIVER: Unremarkable. Normal morphology. No focal mass. GALLBLADDER AND BILE DUCTS: Unremarkable. No gallstones. No gallbladder distention or wall edema. No intra- or extrahepatic biliary ductal dilation. PANCREAS: Unremarkable. No focal cystic or solid mass. No pancreatic tumor. SPLEEN: Unremarkable. Normal size without focal cystic or solid mass. ADRENALS: Unremarkable. No nodules. KIDNEYS AND URETERS: Unremarkable. Normal renal size and position. No hydronephrosis. STOMACH AND BOWEL: All other hollow viscus and solid organs are unremarkable. Specifically, no bladder or obstructive changes of bowel. INTRAPERITONEAL SPACE: Unremarkable. No free air. No free fluid in the pelvis. BONES/JOINTS: Unremarkable. No suspicious lytic or blastic abnormality. No significant osseous abnormalities. SOFT TISSUES: Unremarkable. No discrete abdominal wall hernia. No unusual enhancement. VASCULATURE: Unremarkable. No aortic aneurysm. LYMPH NODES: No enlarged lymph nodes. MRI/MRI Abd WITH and W/O Contrast IMPRESSION: 1. No pancreatic tumor. 2. No findings to explain the clinical presentation. Electronically Signed: Vishnu Sanchez MD at 2:10 EST ,
== END | disposition home or self-care (01) ==
PROVIDERS: PCP Internal Medicine; Referring Provider Nurse Practitioner Adult Health; Visit Provider Nurse Practitioner Adult Health
DX: R10.9 Unspecified abdominal pain (principal); R68.89 Other general symptoms and signs; E16.4 Increased secretion of gastrin
CPT/HCPCS: 74183; A9575

== ENCOUNTER → 2022-04-11 | Outpatient (CLI) | payer OTHER, SELFPAY ==
[2022-04-11 11:59] LABS: Absolute Lymphocyte Count 2.56 X10^3/uL (0.83-4.51); Absolute Neutrophil Count 4.4 X10^3/uL (2.0-7.7); Basophil# 0.07 X10^3/uL; Basophil% 0.9 % (0-1); Eosinophil# 0.35 X10^3/uL; Eosinophils% 4.4 % (0-5); Hematocrit 41.9 % (37-47); Hemoglobin 13.5 g/dL (12.0-15.0); Lymphocyte # 2.56 X10^3/ul (0.83-4.51); Lymphocyte % 32.3 % (19-41); Mean Corp Hgb Conc 32.2 g/dL (32-36); Mean Corpuscular Hgb 28.4 pg (27.0-32.0); Mean Corpuscular Volume 88.2 fL (81-99); Mean Platelet Vol. 9.9 fl (6.2-12.0); Monocyte# 0.47 X10^3/uL; Monocyte% 5.9 % (0-10); NRBC Flagged by Analyzer 0 % (0-5); Neutrophil # 4.44 X10^3/uL (2.7-7.7); Platelet Count 343 K/mm3 (150-450); RBC Distribution Width CV 14.4 % (11.6-14.6); RBC Distribution Width SD 46.4 fl (35.1-43.9); Red Blood Count 4.75 M/mm3 (4.2-5.4); White Blood Count 7.9 K/mm3 (4.4-11.0)
[2022-04-11 12:22] LABS: Amylase 30 U/L (25-115); Anion Gap 11 (5-15); BUN 15 mg/dL (7-18); BUN/Creat Ratio 16.3 RATIO (10-20); Calcium,Total 9.3 mg/dL (8.5-10.1); Chloride 107 mmol/L (98-107); Creatinine, Serum 0.92 mg/dL (0.55-1.02); EST Glomerular Filtration Rate 67 mL/min (>60); Est Glom Filt Rate - Afr Amer 81 mL/min (>60); Glucose 172 mg/dL (74-106); Lipase 121 U/L (73-393); Potassium 4.2 mmol/L (3.5-5.1); Sodium Level 141 mmol/L (136-145)
[2022-04-11 12:26] LABS: Hemoglobin A1c 7.2 % (3.8-5.6)
[2022-04-14 18:46] LABS: Pancreatic Elastase, Fecal 127 (>200)
[2022-04-14 19:06] LABS: Fats, Neutral Increased (.); Fats, Total Increased (.)
== END | disposition home or self-care (01) ==
LOC: LABSPEC 10:52
PROVIDERS: PCP Internal Medicine; Referring Provider Nurse Practitioner Adult Health; Visit Provider Nurse Practitioner Adult Health
DX: R10.9 Unspecified abdominal pain (principal); E11.9 Type 2 diabetes mellitus without complications; R68.89 Other general symptoms and signs; E16.4 Increased secretion of gastrin; I10 Essential (primary) hypertension
CPT/HCPCS: 36415; 80048; 82150; 82653; 82705; 83036; 83690; 85025

== ENCOUNTER → 2022-04-13 | Outpatient (CLI) | payer OTHER, SELFPAY ==
[2022-04-20 20:07] LABS: Dopamine, UR 169 ug/L (Undefined); Epinephrine, 24Ur 5 ug/24 hr (0-20); Epinephrine, Ur 3 ug/L (Undefined); Norepinephrine, 24Ur 41 ug/24 hr (0-135); Norepinephrine, Ur 23 ug/L (Undefined)
[2022-04-20 23:05] LABS: Dopamine, 24Ur 304 ug/24 hr (0-510)
== END | disposition home or self-care (01) ==
LOC: LAB.FUTURE 04-12 11:04 → LABSPEC 13:09
PROVIDERS: PCP Internal Medicine; Visit Provider Nurse Practitioner Adult Health
DX: R68.89 Other general symptoms and signs (principal); E16.4 Increased secretion of gastrin
CPT/HCPCS: 81050; 82384

== ENCOUNTER → 2022-06-06 | Outpatient (CLI) | payer OTHER, SELFPAY ==
--- NOTE | 2022-06-06 11:20 | RAD_ITS ---
STUDY: X-RAY - CERVICAL SPINE REASON FOR EXAM: Female, 56 years old. Radiating neck pain TECHNIQUE: 4 view(s) of the cervical spine were obtained. COMPARISON: None FINDINGS: Normal anterior atlantoaxial articulation. Normal odontoid process. Normal cervical lordosis. Normal vertebral bodies and endplates. Normal disc space heights. Normal visualized intervertebral neuroforamina. The soft tissue structures are unremarkable. RAD/Cerv Spine 2 or 3 Views IMPRESSION: Normal x-ray examination of the visualized cervical spine. Electronically Signed: Oscar Sepulveda MD at 11:37 EDT ,
== END | disposition home or self-care (01) ==
LOC: RAD 11:15
PROVIDERS: PCP Internal Medicine; Referring Provider Nurse Practitioner Family; Visit Provider Nurse Practitioner Family
DX: M54.12 Radiculopathy, cervical region (principal)
CPT/HCPCS: 72040

== ENCOUNTER → 2022-08-14 | Outpatient (CLI) | payer OTHER, SELFPAY ==
--- NOTE | 2022-08-14 14:39 | NEURO ---
NCS and/or EMG Patient Report Ordering Doctor: Kain Zayas NP DATE OF SERVICE: 08/14/22 Findings: Nerve conduction studies were performed in the right and left upper extremities. The right median motor study recording the abductor pollicis brevis showed a normal amplitude, prolonged distal latency and borderline normal conduction velocity. The right ulnar motor study recording the abductor digiti minimi showed a normal amplitude, normal distal latency and normal conduction velocity. No conduction block or focal slowing was present across the elbow. The right median sensory response recording digit two showed a slightly reduced amplitude, prolonged latency and markedly slowed conduction velocity. The right ulnar sensory response recording digit five showed a normal amplitude, latency and conduction velocity. The right radial sensory response recording over the extensor snuff box showed a normal amplitude, latency and conduction velocity. The left median motor study recording the abductor pollicis brevis showed a normal amplitude, prolonged distal latency and normal conduction velocity. The left ulnar motor study recording the abductor digiti minimi showed a normal amplitude, normal distal latency and normal conduction velocity. No conduction block or focal slowing was present across the elbow. The left median sensory response recording digit two showed a slightly reduced amplitude, prolonged latency and markedly slowed conduction velocity. The left ulnar sensory response recording digit five showed a normal amplitude, latency and conduction velocity. The left radial sensory response recording over the extensor snuff box showed a normal amplitude, latency and conduction velocity. Right median-ulnar lumbrical / interosseous motor latencies showed a prolonged median latency compared to the ulnar. Left median-ulnar lumbrical / interosseous motor latencies showed a prolonged median latency compared to the ulnar. Needle EMG of the left upper extremity muscles was performed. No denervation was seen in any muscle. All motor unit morphology, activation and recruitment patterns were normal. Needle EMG of the left upper extremity was omitted given the symmetry of symptoms and the lack of findings in the left upper extremity. Impression: This is an abnormal study. 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 The pathophysiology is predominantly demyelination. These findings are compatible with the clinical diagnosis of carpal tunnel syndrome. In addition, there is no electrophysiologic evidence of cervical radiculopathy, brachial plexopathy or other entrapment neuropathy in the left upper extremity. Jorge Luis Velarde D.O. Multi Select Codes Neurology Neurology Interp Codes: 22660-95 Musc test done w/n test comp (interp) and 61157-17 Nrv cnpeterj test 13/> studies (interp)
== END | disposition home or self-care (01) ==
PROVIDERS: PCP Internal Medicine; Referring Provider Nurse Practitioner Family; Visit Provider Nurse Practitioner Family
DX: M54.12 Radiculopathy, cervical region (principal)
CPT/HCPCS: 95886; 95913

== ENCOUNTER → 2022-09-06 | Outpatient (CLI) | payer OTHER, SELFPAY ==
--- NOTE | 2022-09-06 13:19 | RAD_ITS ---
STUDY: X-RAY - CERVICAL SPINE REASON FOR EXAM: Female, 56 years old. Bilateral upper extremity numbness and tingling. TECHNIQUE: 3 view(s) of the cervical spine were obtained. COMPARISON: Comparison is made with prior study June 06, 2022. FINDINGS: There are degenerative changes of the anterior atlantoaxial articulation. Normal odontoid process. There is straightening of the normal cervical lordosis. Normal vertebral bodies and endplates. Normal disc space heights. Normal visualized intervertebral neuroforamina. The soft tissue structures are unremarkable. RAD/Cerv Spine 2 or 3 Views IMPRESSION: Straightening of the normal cervical lordosis. Electronically Signed: Linden Motley MD at 15:44 EDT ,
[2022-09-06 14:41] LABS: T4 Free Direct 1.16 ng/dL (0.76-1.46); Thyroid Stim Hormone (TSH) 2.43 uIU/mL (0.358-3.74)
[2022-09-08 19:07] LABS: Anti-Thyroglobulin AB < 1.0 IU/mL (0.0-0.9); Thyroglobulin, Serum Qt. < 0.1 ng/mL (1.5-38.5)
== END | disposition home or self-care (01) ==
PROVIDERS: Internal Medicine Endocrinology, Diabetes & Metabolism; PCP Internal Medicine; Referring Provider Orthopaedic Surgery; Visit Provider Orthopaedic Surgery
DX: M54.12 Radiculopathy, cervical region (principal); C73 Malignant neoplasm of thyroid gland; E89.0 Postprocedural hypothyroidism
CPT/HCPCS: 36415; 72040; 84432; 84439; 84443; 86800

== ENCOUNTER 2022-09-26 05:48 | Day surgery (SDC) | payer OTHER, SELFPAY ==
[2022-09-26] VITALS (7 sets, daily range): BP systolic 126–148; BP diastolic 75–85; PULSE 75–84; RESP 16–18; TEMP 36.4–36.8; O2SAT 93–97; BMI 35.5
[2022-09-26] MEDS: Lactated Ringers 1,000 ML 15 ML IV (06:32)
--- NOTE | 2022-09-26 07:07 | HP.PCM_ITS ---
History and Physical Date of Admission: 09/26/22 [facility] [address] [place] [address] OFFICE VISIT Date of Service: 09/06/22 MR#: [id number] Acct: [id number] Name: LETY MEADOWS Rep #: [id number] : 1965 Provider: Dr. Wilbert Meyer DO Age/Sex: 56/F Location: [facility] – [place] Status: Signed Intake Vital Signs 06/29/2312:56 Height 5 ft 4 in Intake Visit Reasons: BL HANDS Chief Complaint: bilateral hand Is patient in pain?: No Allergies adhesive tape Allergy (Intermediate, Verified 09/06/22 14:27) Swellingcephalexin [From Keflex] Allergy (Intermediate, Verified 09/06/22 14:27) RashSulfa (Sulfonamide Antibiotics) Allergy (Intermediate, Verified 09/06/22 14:27) Unknownsulfamethoxazole [From Bactrim] Allergy (Intermediate, Verified 09/06/22 14:27) Rashtrimethoprim [From Bactrim] Allergy (Intermediate, Verified 09/06/22 14:27) Rash Medications calcium carbonate 600 mg calcium (1,500 mg) tablet (Calcium) 600 mg PO BID 11/27/18 [History Confirmed 06/29/22] cholecalciferol (vitamin D3) 25 mcg (1,000 unit) capsule 1,000 unit PO DAILY 11/27/18 [History Confirmed 06/29/22] omega-3 fatty acids 1,000 mg capsule (Fish Oil Concentrate) 1,000 mg PO DAILY 11/27/18 [History Confirmed 06/29/22] onlqjp-qbnzlpgp-fxrijci 40,000-126,000-168,000 unit capsule, delay rel (Zenpep) See Rx Instructions .Route .COMPLEX #360 caps 05/26/22 [Rx Confirmed 06/29/22] albuterol sulfate 90 mcg/actuation aerosol inhaler 2 inh inhalation Q6H PRN shortness of breath or wheezing #6.7 grams 06/06/22 [Rx Confirmed 06/29/22] glimepiride 4 mg tablet 6 mg (1.5 x 4 mg) PO QAM 3 months #135 tabs 06/06/22 [Rx Confirmed 06/29/22] levothyroxine 137 mcg tablet 137 mcg PO DAILY #90 tabs 06/06/22 [Rx Confirmed 06/29/22] lisinopril 5 mg tablet 5 mg PO DAILY #90 tabs 06/06/22 [Rx Confirmed 06/29/22] metformin 1,000 mg tablet 1,000 mg PO BID #180 tabs 06/06/22 [Rx Confirmed 06/29/22] omeprazole 20 mg capsule,delayed release 20 mg PO BID #180 caps 06/06/22 [Rx Confirmed 06/29/22] sitagliptin phosphate 50 mg tablet (Januvia) 50 mg PO DAILY #90 tabs 06/19/22 [Rx Confirmed 06/29/22] [facility] Medical History Abnormal findings on esophagogastroduodenoscopy (EGD) Anxiety and depression Arthritis Cancer Carpal tunnel syndrome Cervical radiculopathy Chronic bronchitis Chronic headaches Diabetes Fatty liver Gallstones Gastrointestinal problem GERD (gastroesophageal reflux disease) Health care maintenance Heart murmur HTN (hypertension) Hypoglycemia IBS (irritable bowel syndrome) Liver disease Malignant neoplasm of thyroid gland Obesity Pneumonia Seasonal allergies surgery to r hand Thyroid cancer Trigger finger UTI (urinary tract infection) Wears glasses Surgical History Endometriosis determined by laparoscopy History of bilateral breast reduction surgery History of hysterectomy History of removal of cervix but not uterus History of thyroidectomy History of tubal ligation Hx of cholecystectomy Family History Unknown Anemia Anxiety Arthritis Breast cancer Cervical cancer Diabetes Depression Hypertension Respiratory disease Seizures Thyroid disorder LupusAunt Ovarian cancer Social History Smoking Status: Never smoker alcohol intake: never substance use type: does not use what type of physical activity do you participate in: walking HPI BL HANDS Chief Complaint: bilateral hand numbness Details: Parts of this documentation were recorded by a scribe, this documentation accur ately reflects the service provided and the decisions made by me, Dr. Wilbert Meyer, 09/06/22 1056. LETY MEADOWS is a 56 year old F here today for bilateral hand numbness. She has been experiencing numbness in both hands for about 6 months. She states she has an itching sensation in her bilateral fingertips. She also states her numbness extend into her right arm to her shoulder when she lays on it. Pt. advises she has been wearing bilateral hand braces at night but they are not effective. Ortho Exam General General: Yes no acute distress Neurologic: Yes alert and Yes oriented x3 Psychologic: Yes reasonable and appropriate Right Wrist/Hand Skin/Wound: Yes CDI, No Swelling and No Ecchymosis Right Wrist: Yes Durken's Test, Tinel's and Phalen's WRIST: 60 wrist extension 50 wrist flexion full supination and pronation Left Wrist/Hand Skin/Wound: Yes CDI, No Swelling and No Ecchymosis Left Wrist: Yes Durken's Test, Yes Tinel's and Yes Phalen's Head: Normocephalic Atraumatic Chest: symmetrical rise, non-labored breathing, no audible wheeze Abdomen: no guarding, non-rigid Supplemental Info 08/14/2022 EMG bilateral upper extremity:This is an abnormal study. 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 The pathophysiology is predominantly demyelination. These findings are compatible with the clinical diagnosis of carpal tunnel syndrome. In addition, there is no electrophysiologic evidence of cervical radiculopathy, brachial plexopathy or other entrapment neuropathy in the left upper extremity. 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 Personally reviewed x-rays. There is no obvious fracture, dislocation, or lucency noted. Patient educated that she does have Reviewed the pre-operative plans with the patient. Risks and benefits of the procedure were fully explained, including but not limited to incisional hypersensitivity and pillar pain for several months, infection, neurovascular injury, continued pain, arthritis, stiffness, need for further surgery, re- injury, DVT, PE, general risks of anesthesia, and loss of limb or life. The patient understands all the risks and does wish to proceed with written consent for right CTR. Educated that the goal of surgery is not take away symptoms but to prevent worsening. Follow up in 2 weeks postop or sooner if pain, swelling, numbness or associated symptoms, or concerns develop. All questions answered. Patient in agreement of plan. 09/06/22 1500 <Electronically signed by Wilbert Meyer DO> Date Wilbert Meyer DO Cosigner Signature: Date (if applicable) I have examined the patient and the H&P has been reviewed. There are no clinical changes since date of exam.
[2022-09-26] MEDS: Clindamycin 900 MG/50 ML BAG 75 MG IV (07:19)
[2022-09-26] MEDS: Lidocaine 1% /Epi 1:100 (20ml) 20 ML Vial (07:32)
--- NOTE | 2022-09-26 07:47 | OP.PCM_ITS ---
Operative Report Date of Procedure: 09/26/22 Preoperative diagnosis; right carpal tunnel syndrome Postoperative diagnosis; same Procedure: Right open carpal tunnel release Anesthesia: Local with MAC Tourniquet time; 10 minutes 250 mm Hg Complications: None Indication for procedure; This is a 57-year-old female with long-standing s ymptoms consistent with carpal tunnel syndrome the patient did have electrodiagnostic evidence of this and has failed conservative treatment. Risks benefits and alternatives were reviewed including risks of bleeding infection nerve artery tissue damage need for further surgery and continued pain and symptoms, hypersensitivity to scar and Pillar pain. Procedure; The patient was met in the preoperative holding area the operative extremity was identified by both patient and physician and was marked the patient was met by anesthesia and brought back to the operating room and transferred to the operating table in the supine position. Anesthesia was started. A well-padded tourniquet was placed on the operative upper extremity. The patient was prepped and draped in the usual sterile fashion. A timeout was called to ensure the proper patient procedure and extremity were being contemplated. 0.5 percent lidocaine with epinephrine was injected into the incisional area. An Esmarch was used to exsanguinate the extremity. The tourniquet was inflated to 250 mmHg. A midline incision was made with a 15 blade scalpel between the thenar and hypothenar eminence. This was carried down through the skin and subcutaneous tissue. Luis Antonio retractors were then used, a deep blade scalpel was used to make a deep incision in the palmar aponeurosis. The luis antonio retractors were then placed deep to this and the transverse carpal ligament was identified a perforation was made with a scalpel and a Littler scissors were used to complete the release of the transverse carpal ligament distally under direct visualization with the tips facing ulnarly until the perivascular fat was reached. Then turning our attention proximally using a tension slide technique the proximal extent of the transverse carpal ligament was released . There was noted to be hypertrophy of the transverse carpal ligament without other findings. The wound was thoroughly irrigated and was closed with 4-0 nylon vertical mattress stitches. Dressing was applied in the form of xeroform 4 x 4, web roll and an sylvester wrap. Tourniquet was let down there is no intraoperative complications patient tolerated the procedure well and was transferred to the PACU. All counts were correct.
--- NOTE | 2022-09-26 07:47 | DCINST_ITS ---
Discharge Instructions Diet Discharge Diet: No restrictions Dressing / Incision Call your doctor if you observe: Shortness of breath and Chest pain Additional Dressing/Incision Instructions:: Ice and elevate operative extremity next 72 hours. Keep dressing on clean and dry for 48 hours then may remove and allow warm soapy water to rinse over incision but do not submerge until sutures are out. Then apply bandaid over incision and change daily. encourage finger range of motion. Not lift more than 1/2 pound. Minimize narcotic use only as needed and directed, may use OTC NSAID and Tylenol to supplement/substitute for pain control. Follow Up Care Please Follow Up With: Wilbert Meyer DO When: 2 weeks Test Results: Test results from this visit will be discussed in further detail at your follow- up appointment, if applicable. Discharge Plan Admission Primary Reason for Your Visit: Right carpal tunnel release Attending Provider: Wilbert Meyer Primary Care Provider: Jonnie Guardado Discharge Orders/Prescriptions Prescriptions: New hydrocodone-acetaminophen 5-325 mg tablet 1 - 2 tab PO Q4H PRN (Reason: pain) 3 Days Qty: 10 0RF No Action cholecalciferol (vitamin D3) 1,000 unit capsule 1,000 unit PO DAILY calcium carbonate [Calcium 600] 600 mg calcium (1,500 mg) tablet 600 mg PO BID omega-3 fatty acids [Fish Oil Concentrate] 1,000 mg capsule 1,000 mg PO DAILY omeprazole 20 mg capsule,delayed release(DR/EC) 20 mg PO BID Qty: 180 2RF metformin 1,000 mg tablet 1,000 mg PO BID Qty: 180 3RF lisinopril 5 mg tablet 5 mg PO DAILY Qty: 90 1RF levothyroxine 137 mcg tablet 137 mcg PO DAILY Qty: 90 2RF glimepiride 4 mg tablet 6 mg PO QAM 90 Days Qty: 135 3RF albuterol sulfate 90 mcg/actuation HFA aerosol inhaler 2 inh inhalation Q6H PRN (Reason: shortness of breath or wheezing) Qty: 6.7 0RF Zenpep 40,000-126,000- 168,000 unit capsule,delayed release(DR/EC) See Rx Instructions .ROUTE .COMPLEX Qty: 360 5RF Rx Instructions: take 1 by mouth with snacks, take 2 by mouth with meals Januvia 50 mg tablet 50 mg PO DAILY Qty: 90 1RF Referrals / Follow Up: Jonnie Guardado MD [Primary Care Provider] - Disposition Disposition (needs filled in before D/C Order can be placed): Home, Self Care
[2022-09-26 08:07] LABS: Bedside Glucose 240 mg/dL (74-106)
== END 2022-09-26 08:50 | disposition home or self-care (01) ==
LOC: SDC 05:50 → AC 05:51
PROVIDERS: PCP Internal Medicine; Referring Provider Orthopaedic Surgery; Visit Provider Orthopaedic Surgery
PROC: (CPT 64721; principal; 2022-09-26 07:15)
DX: G56.03 Carpal tunnel syndrome, bilateral upper limbs (principal); E11.9 Type 2 diabetes mellitus without complications; I10 Essential (primary) hypertension; Z79.84 Long term (current) use of oral hypoglycemic drugs; K21.9 Gastro-esophageal reflux disease without esophagitis
CPT/HCPCS: 64721; 82962; J7120

== ENCOUNTER 2023-01-15 12:32 | Emergency (ER) | payer OTHER, SELFPAY ==
[2023-01-15 12:33] VITALS: BP 151/85; PULSE 111; RESP 14; TEMP 35.7; O2SAT 98; BMI 34.2
--- NOTE | 2023-01-15 14:47 | EX.ED.VIS.UR ---
HPI HPI - URI History of Present Illness Chief Complaint: Sore Throat Informant: patient Onset/Context/Timing Onset: Days (3) Context: Gradual Onset Timing: Continuous Quality: Burning, itching Location: Throat Worsened by: Swallowing Relieved by: - (Nothing) Associated Symptoms Associated Symptoms: Positive for Sinus Pressure, Chest Pain and Productive Cough (Clear sputum); Negative for Nasal Congestion, Headache, Myalgias, Nausea, Vomiting, Diarrhea, Shortness of Breath, Nonproductive cough or Hemoptysis Narrative Narrative: Patient presents with sore throat, cough, and chest pain that has been getting worse over the past 3 days. Patient states it is gradually getting worse. Patient describes her pain as burning. Patient states it is worse with swallowing. Patient admits to some sinus pressure. Patient also admits to some pain in her chest. Patient states she is coughing up some clear sputum. Patient admits to some low-grade subjective fevers at home. Patient denies any nausea or vomiting. ROS ROS ED Constitutional Constitutional ED: Reports fever(s) and subjective; Denies chills Eyes Eyes: Denies blurry vision or change in vision ENT ENT ED: Reports sore throat; Denies rhinorrhea Cardiovascular Cardiovascular: Reports chest pain; Denies palpitations Respiratory/Chest Respiratory/Chest: Reports cough; Denies dyspnea Gastrointestinal Gastrointestinal: Denies nausea or vomiting Genitourinary Genitourinary ED: Denies dysuria or hematuria Musculoskeletal Musculoskeletal: Reports back pain; Denies neck pain Integumentary Denies abscess or rash Neurologic Neurologic: Denies headache(s) or weakness Allergic/Immunologic Allergic/Immunologic ED: Denies mouth swelling or urticaria [facility] Medical History Abnormal findings on esophagogastroduodenoscopy (EGD) Anxiety and depression Arthritis Cancer Carpal tunnel syndrome Cervical radiculopathy Chronic bronchitis Chronic headaches Diabetes Fatty liver Gallstones Gastrointestinal problem GERD (gastroesophageal reflux disease) Health care maintenance Heart murmur HTN (hypertension) Hypoglycemia IBS (irritable bowel syndrome) Liver disease Malignant neoplasm of thyroid gland Obesity Pneumonia Seasonal allergies surgery to r hand Thyroid cancer Trigger finger UTI (urinary tract infection) Wears glasses Home Medications calcium carbonate 600 mg calcium (1,500 mg) tablet (Calcium) 600 mg PO BID 11/27/18 [History Last Taken 09/05/21] cholecalciferol (vitamin D3) 25 mcg (1,000 unit) capsule 1,000 unit PO DAILY 11/27/18 [History Last Taken 09/05/21] omega-3 fatty acids 1,000 mg capsule (Fish Oil Concentrate) 1,000 mg PO DAILY 11/27/18 [History Last Taken 09/05/21] [id number] 40,000-126,000-168,000 unit capsule, delay rel (Zenpep) See Rx Instructions .Route .COMPLEX #360 caps 05/26/22 [Rx Last Taken Unknown] albuterol sulfate 90 mcg/actuation aerosol inhaler 2 inh inhalation Q6H PRN shortness of breath or wheezing #6.7 grams 06/06/22 [Rx Last Taken Unknown] glimepiride 4 mg tablet 6 mg (1.5 x 4 mg) PO QAM 3 months #135 tabs 06/06/22 [Rx Last Taken Unknown] levothyroxine 137 mcg tablet 137 mcg PO DAILY #90 tabs 06/06/22 [Rx Last Taken Unknown] lisinopril 5 mg tablet 5 mg PO DAILY #90 tabs 06/06/22 [Rx Last Taken Unknown] metformin 1,000 mg tablet 1,000 mg PO BID #180 tabs 06/06/22 [Rx Last Taken Unknown] omeprazole 20 mg capsule,delayed release 20 mg PO BID #180 caps 06/06/22 [Rx Last Taken Unknown] sitagliptin phosphate 50 mg tablet (Januvia) 50 mg PO DAILY #90 tabs 06/19/22 [Rx Last Taken Unknown] Allergy/AdvReac Type Severity Reaction Status Date / Time adhesive tape Allergy Intermediate Swelling Verified 01/15/23 12:33 cephalexin [From Keflex] Allergy Intermediate Rash Verified 01/15/23 12:33 Sulfa (Sulfonamide Allergy Intermediate Unknown Verified 01/15/23 12:33 Antibiotics) sulfamethoxazole Allergy Intermediate Rash Verified 01/15/23 12:33 [From Bactrim] trimethoprim [From Bactrim] Allergy Intermediate Rash Verified 01/15/23 12:33 Family History Unknown Anemia Anxiety Arthritis Breast cancer Cervical cancer Diabetes Depression Hypertension Respiratory disease Seizures Thyroid disorder Lupus Aunt Ovarian cancer Surgical History Endometriosis determined by laparoscopy History of bilateral breast reduction surgery History of hysterectomy History of removal of cervix but not uterus History of thyroidectomy History of tubal ligation Hx of cholecystectomy Social History Smoking Status: Never smoker alcohol intake: never substance use type: does not use what type of physical activity do you participate in: walking EXAM Physical Exam Const Vital Signs: 01/15/23 12:33 Temperature 96.2 F L Temperature Source Temporal Pulse Rate 111 H Respiratory Rate 14 Blood Pressure 151/85 H Blood Pressure Mean 107 Pulse Ox 98 Oxygen Delivery Method Room Air Positive well nourished and well developed General Appearance ED: well developed and NAD HEENT Reports moist mucous membranes normocephalic and atraumatic Throat: posterior oropharynx abnormal Positive for erythema; Negative for exudates Neck supple, no meningeal signs and no JVD General: lymphadenopathy anterior cervical soft Resp normal respiratory effort and clear to auscultation bilaterally Cardio Rate: regular rate Rhythm: regular rhythm GI non-tender and non-distended Palpation: soft Extremity normal to inspection and full ROM General Extremety ED: Negative for tenderness Neuro oriented x3, CN's II-XII intact bilaterally and no sensory deficits noted Sensorium / Orientation: alert Motor Exam: strength 5/5 throughout Psych mental status grossly normal MDM MDM MDM Narrative Medical decision making narrative: Differential diagnosis includes strep pharyngitis, viral pharyngitis, COVID-19, influenza, pneumonia, and bronchitis. Chest x-ray will be obtained to assess for pneumonia and bronchitis. Rapid strep will be obtained to assess for strep pharyngitis. COVID-19 rapid antigen will be obtained to assess for COVID-19 infection. Influenza A and influenza B antigens will be obtained to assess for influenza infection. Lab Data Attestation: I reviewed the patient's lab results. Lab results narrative: COVID-19 rapid antigen was reviewed and was negative. Influenza A and influenza B antigens were reviewed and were negative. Rapid strep antigen was reviewed and was negative. Radiography Chest X-Ray - ED: 2 View, Read by ED Physician, Read by Radiologist and No Acute Disease Diagnostic Testing: Clinical Impression(s) from Imaging Studies Chest X-Ray 01/15/23 15:11 IMPRESSION: Stable chest with no acute or active cardiopulmonary disease. Electronically Signed: Timothy Macias MD at 15:33 EST , PA and lateral chest x-ray was obtained. There are 2 views. On my independent interpretation, lung guillen are clear. There is normal cardiac silhouette. Bony thorax is normal. There is no acute process noted. Radiologist also interpreted the x-ray and agrees. Treatment and Re-Evaluation Narrative: Patient was advised of her findings. Patient was advised that this is most likely viral pharyngitis. Patient was instructed to drink plenty of fluids. Patient was instructed to use throat lozenges as needed. Patient was instructed to take Tylenol or ibuprofen as needed for any pain or fevers. Patient was instructed to follow-up with her primary care physician in 5 to 7 days. Patient understood and was agreeable with the plan. All questions were answered. Discharge Plan Triage Chief Complaint: Sore Throat ED Provider: Karan Santos Dx/Rx/DC Orders Clinical Impression: Acute viral pharyngitis, Type 2 diabetes mellitus, Hypertension Instructions: ED Pharyngitis, Viral Prescriptions: No Action cholecalciferol (vitamin D3) 1,000 unit capsule 1,000 unit PO DAILY calcium carbonate [Calcium 600] 600 mg calcium (1,500 mg) tablet 600 mg PO BID omega-3 fatty acids [Fish Oil Concentrate] 1,000 mg capsule 1,000 mg PO DAILY omeprazole 20 mg capsule,delayed release(DR/EC) 20 mg PO BID Qty: 180 2RF metformin 1,000 mg tablet 1,000 mg PO BID Qty: 180 3RF lisinopril 5 mg tablet 5 mg PO DAILY Qty: 90 1RF levothyroxine 137 mcg tablet 137 mcg PO DAILY Qty: 90 2RF glimepiride 4 mg tablet 6 mg PO QAM 90 Days Qty: 135 3RF albuterol sulfate 90 mcg/actuation HFA aerosol inhaler 2 inh inhalation Q6H PRN (Reason: shortness of breath or wheezing) Qty: 6.7 0RF Zenpep 40,000-126,000- 168,000 unit capsule,delayed release(DR/EC) See Rx Instructions .ROUTE .COMPLEX Qty: 360 5RF Rx Instructions: take 1 by mouth with snacks, take 2 by mouth with meals Januvia 50 mg tablet 50 mg PO DAILY Qty: 90 1RF Primary Care Provider: Kain Zayas NP Referrals: Jonnie Guardado MD [Med Staff - Active Staff] - 5-7 Days Disposition Disposition: Home, Self Care
--- NOTE | 2023-01-15 15:11 | RAD_ITS ---
STUDY: X-RAY CHEST REASON FOR EXAM: Female, 57 years old. Cough. TECHNIQUE: Frontal and lateral views of the chest. COMPARISON: February 03, 2022. FINDINGS: The lungs are clear and expanded. There is no demonstrated pleural abnormality. Normal size heart. Normal mediastinum and leslie. Normal visualized pulmonary arteries. Normal visualized aortic arch and descending thoracic aorta. Diffuse thoracic osteopenia with mild spondylosis, unchanged. Normal visualized ribs, clavicles, and shoulders. No abnormality of the visualized soft tissue structures of the upper abdomen. RAD/Chest PA and Lateral IMPRESSION: Stable chest with no acute or active cardiopulmonary disease. Electronically Signed: Timothy Macias MD at 15:33 EST ,
== END 2023-01-15 16:29 | disposition home or self-care (01) ==
PROVIDERS: Emergency Provider Emergency Medicine; PCP Nurse Practitioner Family; Visit Provider Emergency Medicine
DX: J02.8 Acute pharyngitis due to other specified organisms (principal); E11.9 Type 2 diabetes mellitus without complications; B97.89 Other viral agents as the cause of diseases classified elsewhere; I10 Essential (primary) hypertension; Z85.850 Personal history of malignant neoplasm of thyroid; Z79.899 Other long term (current) drug therapy; Z79.84 Long term (current) use of oral hypoglycemic drugs; K21.9 Gastro-esophageal reflux disease without esophagitis
CPT/HCPCS: 71046; 87428; 87880; 99282

== ENCOUNTER → 2023-02-13 | Outpatient (CLI) | payer OTHER, SELFPAY ==
--- NOTE | 2023-02-13 16:10 | RAD_ITS ---
STUDY: X-RAY CHEST REASON FOR EXAM: Female, 57 years old. DYSPNEA TECHNIQUE: PA and lateral views of the chest. COMPARISON: 01/15/2023 FINDINGS: The lungs are clear and expanded. Elevated right hemidiaphragm which is unchanged. Normal size heart. Normal mediastinum and leslie. Normal visualized pulmonary arteries. Normal visualized aortic arch and descending thoracic aorta. Normal visualized thoracic spine. Normal visualized ribs, clavicles, and shoulders. There is no demonstrated abnormality of the visualized soft tissue structures of the upper abdomen. RAD/Chest PA and Lateral IMPRESSION: No active disease. Electronically Signed: Rafael Bartlett MD at 22:14 [facility] ,
== END | disposition home or self-care (01) ==
PROVIDERS: PCP Nurse Practitioner Family; Referring Provider Nurse Practitioner Family; Visit Provider Nurse Practitioner Family
DX: R06.00 Dyspnea, unspecified (principal)
CPT/HCPCS: 71046

== ENCOUNTER 2023-04-03 09:27 | Day surgery (SDC) | payer OTHER, SELFPAY ==
[2023-04-03 09:47] VITALS: BP 125/76; PULSE 93; RESP 16; TEMP 36.1; O2SAT 96; BMI 33.7
--- OUTSIDE RECORDS SUMMARY | 2023-04-03 09:50 | XMS RPT_ITS | CCD ---
Author Name Unknown Address [address] [place] [address] Organization [facility] Care Team Providers Care Leather Seasoner Name Role Phone Caio Palacios Unavailable Unavailable Caio Palacios Unavailable Unavailable ACUNA, SITA~238428 ACUNA Attending Patricia vailable ACUNA, SITA~455781 ACUNA Primary Care Patricia vailable ACUNA, SITA~669599 ACUNA Attending Patricia vailable ACUNA, SITA~512497 ACUNA Primary Care Patricia vailable ACUNA, SITA~012496 ACUNA Attending Patricia vailable ACUNA, SITA~490449 ACUNA Primary Care Patricia vailable ACUNA, SITA~008475 ACUNA Attending Patricia vailable ACUNA, SITA~546126 ACUNA Primary Care Patricia vailable ACUNA, SITA~231461 ACUNA Attending Patricia vailable ACUNA, SITA~509679 ACUNA Primary Care Patricia vailable ACUNA, SITA~331426 ACUNA Attending Patricia vailable ACUNA, SITA~999670 ACUNA Primary Care Patricia vailable ACUNA, SITA~471836 ACUNA Attending Patricia vailable ACUNA, SITA~119619 ACUNA Primary Care Patricia vailable ACUNA, SITA~506556 ACUNA Attending Patricia vailable ACUNA, SITA~367193 ACUNA Primary Care Patricia vailable ACUNA, SITA~907915 ACUNA Attending Patricia vailable ACUNA, SITA~380499 ACUNA Primary Care Patricia vailable ACUNA, SITA~040742 ACUNA Attending Patricia vailable ACUNA, SITA~995574 ACUNA Primary Care Patricia vailable ACUNA, SITA~152831 ACUNA Attending Patricia vailable ACUNA, SITA~636888 ACUNA Primary Care Patricia vailable ACUNA, SITA~047751 ACUNA Attending Patricia vailable ACUNA, SITA~200005 ACUNA Primary Care Patricia vailable ACUNA, SITA~222657 ACUNA Attending Patricia vailable ACUNA, SITA~770876 ACUNA Primary Care Patricia vailable ACUNA, SITA~571135 ACUNA Attending Patricia vailable ACUNA, SITA~589186 ACUNA Primary Care Patricia vailable ACUNA, SITA~397220 ACUNA Attending Patricia vailable ACUNA, SITA~102558 ACUNA Referring Patricia vailable ACUNA, SITA~623911 ACUNA Primary Care Patricia vailable ACUNA, SITA~435093 ACUNA Attending Patricia vailable ACUNA, SITA~577535 ACUNA Primary Care Patricia vailable NEAL, FELIPE D~186235 Attending Unava ilable ACUNA, SITA~725507 ACUNA Referring Patricia vailable ACUNA, SITA~082533 ACUNA Primary Care Patricia vailable NEAL, FELIPE D~370886 Referring Unava ilable ACUNA, SITA~815272 ACUNA Primary Care Patricia vailable ACUNA, SITA~336830 ACUNA Attending Patricia vailable ACUNA, SITA~267049 ACUNA Primary Care Patricia vailable ACUNA, SITA~266496 ACUNA Attending Patricia vailable ACUNA, SITA~709704 ACUNA Primary Care Patricia vailable ACUNA, SITA~081788 ACUNA Attending Patricia vailable ACUNA, SITA~257768 ACUNA Primary Care Patricia vailable ACUNA, SITA~262243 ACUNA Attending Patricia vailable ACUNA, SITA~226599 ACUNA Primary Care Patricia vailable ACUNA, SITA~872001 ACUNA Attending Patricia vailable ACUNA, SITA~853437 ACUNA Referring Patricia vailable ACUNA, SITA~785443 ACUNA Primary Care Patricia vailable ACUNA, SITA~637036 ACUNA Attending Patricia vailable ACUNA, SITA~620216 ACUNA Primary Care Patricia vailable ACUNA, SITA~984262 ACUNA Attending Patricia vailable ACUNA, SITA~169646 ACUNA Primary Care Patricia vailable APRIL GOMEZ Attending Unavailable ACUNA, SITA~042072 ACUNA Primary Care Patricia vailable LITO LINARES Attending Unavailable ACUNA, SITA~574787 ACUNA Primary Care Patricia vailable LITO LINARES Referring Unavailable ACUNA, SITA~047611 ACUNA Primary Care Patricia vailable ACUNA, SITA~032205 ACUNA Attending Patricia vailable ACUNA, SITA~018883 ACUNA Primary Care Patricia vailable ACUNA, SITA~739086 ACUNA Attending Patricia vailable ACUNA, SITA~605293 ACUNA Primary Care Patricia vailable ACUNA, SITA~975308 ACUNA Attending Patricia vailable ACUNA, SITA~685195 ACUNA Primary Care Patricia vailable ACUNA, SITA~105054 ACUNA Attending Patricia vailable ACUNA, SITA~302584 ACUNA Primary Care Patricia vailable ACUNA, SITA~662224 ACUNA Attending Patricia vailable ACUNA, SITA~812008 ACUNA Referring Patricia vailable ACUNA, SITA~767565 ACUNA Primary Care Patricia vailable ACUNA, SITA~187748 ACUNA Attending Patricia vailable ACUNA, SITA~440345 ACUNA Primary Care Patricia vailable ACUNA, SITA~679048 ACUNA Attending Patricia vailable ACUNA, SITA~231323 ACUNA Primary Care Patricia vailable ACUNA, SITA~362333 ACUNA Attending Patricia vailable ACUNA, SITA~506253 ACUNA Primary Care Patricia vailable ACUNA, SITA~849313 ACUNA Attending Patricia vailable ACUNA, SITA~696897 ACUNA Primary Care Patricia vailable ACUNA, SITA~230630 ACUNA Attending Patricia vailable ACUNA, SITA~125524 ACUNA Primary Care Patricia vailable ACUNA, SITA~286094 ACUNA Attending Patricia vailable ACUNA, SITA~084291 ACUNA Primary Care Patricia vailable ACUNA, SITA~851654 ACUNA Attending Patricia vailable ACUNA, SITA~003200 ACUNA Referring Patricia vailable ACUNA, SITA~359353 ACUNA Primary Care Patricia vailable ACUNA, SITA~451117 ACUNA Attending Patricia vailable ACUNA, SITA~959348 ACUNA Primary Care Patricia vailable ACUNA, SITA~923883 ACUNA Attending Patricia vailable ACUNA, SITA~068980 ACUNA Primary Care Patricia vailable ACUNA, SITA~660977 ACUNA Attending Patricia vailable ACUNA, SITA~394442 ACUNA Primary Care Patricia vailable Allergies Allergy Classification Reported Allergen(s) Allergy Type Date of Onset Reaction(s) Facility (1 source) Sulfonamides (Antibiotic) Drug allergy (disorder) [facility] Repository (1 source) Adhesive agent; Translations: [Unknown] Propensity to adverse reactions to drug (disorder) [facility] Repository Problems Active Problems Problem Classification Problem Date Documented Date Episodic/Chronic Anxiety disorders (1 source) Generalized anxiety disorder; Translations: [Generalized anxiety disorder] Onset: 01-11-2017 Chronic Complications of surgical procedures or medical care (1 source) Postprocedural hypothyroidism; Translations: [Postprocedural hypothyroidism] Onset: 2018 Chronic Diabetes mellitus without complication (1 source) Type 2 diabetes mellitus without complications; Translations: [Type 2 diabetes mellitus without complications] Onset: 07-29-2018 Chronic Essential hypertension (1 source) Essential (primary) hypertension; Translations: [Essential (primary) hypertension] Onset: 07-29-2018 Chronic Miscellaneous mental health disorders (1 source) Primary insomnia; Translations: [Primary insomnia] Onset: 01-11-2017 Chronic Other connective tissue disease (1 source) Pain in right hand; Translations: [Pain in right hand] Onset: 2018 Episodic Other connective tissue disease (1 source) Pain in left hand; Translations: [Pain in left hand] Onset: 2018 Episodic Other liver diseases (1 source) Fatty (change of) liver, not elsewhere classified; Translations: [Fatty (change of) liver, not elsewhere classified] Onset: 08-28-2018 Chronic Other nutritional; endocrine; and metabolic disorders (1 source) Morbid (severe) obesity due to excess calories; Translations: [Morbid (severe) obesity due to excess calories] Onset: 01-22-2018 Chronic Other upper respiratory disease (1 source) Other allergic rhinitis; Translations: [Other allergic rhinitis] Onset: 08-28-2018 Chronic Thyroid disorders (1 source) Other specified hypothyroidism; Translations: [Other specified hypothyroidism] Onset: 08-28-2018 Chronic Past or Other Problems Problem Classification Problem Date Documented Da te Episodic/Chronic Cancer of cervix (1 source) Personal history of malignant neoplasm of cervix uteri; Translations: [Personal history of malignant neoplasm of cervix uteri] Onset: 01-11-2017 Episodic Cancer of thyroid (1 source) Personal history of malignant neoplasm of thyroid; Translations: [Personal history of malignant neoplasm of thyroid] Onset: 07-29-2018 Episodic Other connective tissue disease (1 source) Trigger finger, right ring finger; Translations: [Trigger finger, right ring finger] Onset: 05-17-2018 Episodic Other gastrointestinal disorders (1 source) Diarrhea, unspecified; Translations: [Diarrhea, unspecified] Onset: 08-16-2018 Episodic Other liver diseases (1 source) Abnormal levels of other serum enzymes; Translations: [Abnormal levels of other serum enzymes] Onset: 08-28-2018 Episodic Other screening for suspected conditions (not mental disorders or infectious disease) (1 source) Encounter for screening mammogram for malignant neoplasm of breast; Translations: [Encounter for screening mammogram for malignant neoplasm of breast] Onset: 01-22-2018 Episodic Other skin disorders (1 source) Nonscarring hair loss, unspecified; Translations: [Nonscarring hair loss, unspecified] Onset: 07-29-2018 Episodic Results Test Name Value Interpretation Reference Range Facil ity Encounters Encounter Date Encounter Type Care Provider Facility Start: 12-24-2018 Patient encounter procedure SITA~[id number] KALPANA ACUNA [facility] Start: 10-17-2018 Patient encounter procedure SITA~[id number] ACUNA [facility] Start: 10-16-2018 Patient encounter procedure SITA~[id number] KALPANA ACUNA [facility] Start: 2018 End: 09-26-2018 Patient encounter procedure SITA~[id number] KALPANA ACUNA [facility] Start: 2018 End: 2018 Patient encounter procedure SITA~[id number] KALPANA ACUNA [facility] Start: 09-17-2018 Patient encounter procedure SITA~[id number] KALPANA ACUNA [facility] Start: 09-06-2018 Patient encounter procedure SITA~[id number] ACUNA KALPANA [facility] Start: 09-03-2018 Patient encounter procedure SITA~[id number] KALPANA ACUNA [facility] Start: 09-02-2018 Patient encounter procedure SITA~[id number] ACUNA ACUNA [facility] Start: 08-28-2018 End: 08-29-2018 Patient encounter procedure SITA~[id number] ACUNA ACUNA [facility] Start: 08-21-2018 Patient encounter procedure SITA~[id number] KALPANA ACUNA [facility] Start: 08-19-2018 Patient encounter procedure SITA~[id number] ACUNA [facility] Start: 08-16-2018 Patient encounter procedure LITO LINARES [facility] Start: 07-31-2018 Patient encounter procedure APRIL GOMEZ [facility] Start: 07-30-2018 Patient encounter procedure SITA~[id number] KALPANA ACUNA [facility] Start: 07-29-2018 Patient encounter procedure SITA~[id number] KALPANA ACUNA [facility] Start: 07-29-2018 End: 07-30-2018 Patient encounter procedure SITA~[id number] KALPANA ACUNA [facility] Start: 07-29-2018 End: 07-29-2018 Patient encounter procedure SITA~[id number] KALPANA ACUNA [facility] Start: 07-11-2018 Patient encounter procedure SITA~[id number] KALPANA ACUNA [facility] Start: 07-03-2018 Patient encounter procedure SITA~[id number] KALPANA ACUNA [facility] Start: 05-28-2018 Patient encounter procedure SITA~[id number] KALPANA ACUNA [facility] Start: 05-17-2018 End: 05-17-2018 Patient encounter procedure FELIPE D~[id number] [facility] Start: 05-13-2018 End: 05-13-2018 Patient encounter procedure SITA~[id number] KALPANA ACUNA [facility] Start: 05-10-2018 End: 05-11-2018 Patient encounter procedure SITA~[id number] ACUNA ACUNA [facility] Start: 05-08-2018 Patient encounter procedure SITA~[id number] KALPANA ACUNA [facility] Start: 05-01-2018 Patient encounter procedure SITA~[id number] KALPANA ACUNA [facility] Start: 05-01-2018 Patient encounter procedure SITA~[id number] KALPANA ACUNA [facility] Start: 04-23-2018 Patient encounter procedure SITA~[id number] KALPANA ACUNA [facility] Start: 03-08-2018 Patient encounter procedure SITA~[id number] KALPANA ACUNA [facility] Start: 03-04-2018 Patient encounter procedure SITA~[id number] KALPANA ACUNA [facility] Start: 03-01-2018 Patient encounter procedure SITA~[id number] KALPANA ACUNA [facility] Start: 02-28-2018 Patient encounter procedure SITA~[id number] KALPANA ACUNA [facility] Start: 02-14-2018 Patient encounter procedure SITA~[id number] KALPANA ACUNA [facility] Start: 01-22-2018 End: 01-22-2018 Patient encounter procedure SITA~[id number] KALPANA ACUNA [facility] Start: 01-02-2018 Patient encounter procedure SITA~[id number] KALPANA ACUNA [facility] Start: 12-28-2017 Patient encounter procedure SITA~[id number] KALPANA ACUNA [facility] Start: 08-08-2017 End: 08-08-2017 Emergency department patient visit Caio Palacios Facility:[facility] Start: 11-25-2016 End: 11-25-2016 Emergency department patient visit aCio Palacios Facility:[facility] Payers Date Payer Category Payer Medicaid [id number] 2017 Unknown [id number] 2016 Private Health Insurance [id number] Summary Purpose Family History No Family History Records FoundNo Family History Records FoundNo Family History Records FoundNo Family History Records FoundNo Family History Records Found Advance Directives No Advanced Directives Records FoundNo Advanced Directives Records FoundNo Advanced Directives Records FoundNo Advanced Directives Records FoundNo Advanced Directives Records Found Additional Source Comments INFORMATION SOURCE (unrecogn ized section and content) DATE CREATED AUTHOR AUTHOR'S ORGANIZ ATION 12/11/2017 [facility] DATE CREATED AUTHOR AUTHOR'S ORGANIZ ATION 11/14/2018 [facility] DATE CREATED AUTHOR AUTHOR'S ORGANIZ ATION 12/25/2018 [facility] DATE CREATED AUTHOR AUTHOR'S ORGANIZ ATION 02/09/2019 [facility] FOR RECORDS PERTAINING TO PATIENTS WHO ARE OR HAVE BEEN ENROLLED IN A CHEMICAL DEPENDENCY/SUBSTANCEABUSE PROGRAM, SOME INFORMATION MAY BE OMITTED. This clinical summary was aggregated from multiple sources. Caution should be exercised in using it in the provision of clinical care. This summary normalizes information from multiple sources, and as a consequence, information in this document may materially change the coding, format and clinical context of patient data. In addition, data may be omitted in some cases. CLINICAL DECISIONS SHOULD BE BASED ON THE PRIMARY CLINICAL RECORDS. [employer] provides no warranty or guarantee of the accuracy or completeness of information in this document.
[2023-04-03] MEDS: Lactated Ringers 1,000 ML 15 ML IV (09:55)
[2023-04-03 10:20] LABS: Bedside Glucose 146 mg/dL (74-106)
--- NOTE | 2023-04-03 11:11 | HP.PCM_ITS ---
History and Physical Date of Admission: 04/03/23 [facility] [address] [place] [address] OFFICE VISIT Date of Service: 10/09/22 MR#: [id number] Acct: [id number] Name: LETY MEADOWS Rep #: [id number] : 1965 Provider: SEAN Allne Age/Sex: 57/F Location: [facility] Status: Signed Intake Vital Signs 06/29/2312:56 09/26/2305:33 Height 5 ft 4 in 5 ft 4 in Intake Visit Reasons: right wrist Chief Complaint: bilateral hand Is patient in pain?: Yes Allergies adhesive tape Allergy (Intermediate, Verified 10/09/22 13:21) Swellingcephalexin [From Keflex] Allergy (Intermediate, Verified 10/09/22 13:21) RashSulfa (Sulfonamide Antibiotics) Allergy (Intermediate, Verified 10/09/22 13:21) Unknownsulfamethoxazole [From Bactrim] Allergy (Intermediate, Verified 10/09/22 13:21) Rashtrimethoprim [From Bactrim] Allergy (Intermediate, Verified 10/09/22 13:21) Rash Medications calcium carbonate 600 mg calcium (1,500 mg) tablet (Calcium) 600 mg PO BID 11/27/18 [History Confirmed 10/09/22] cholecalciferol (vitamin D3) 25 mcg (1,000 unit) capsule 1,000 unit PO DAILY 1 [History Confirmed 10/09/22] omega-3 fatty acids 1,000 mg capsule (Fish Oil Concentrate) 1,000 mg PO DAILY 11/27/18 [History Confirmed 10/09/22] mqdfna-dpzcrivv-xydxjjm 40,000-126,000-168,000 unit capsule, delay rel (Zenpep) See Rx Instructions .Route .COMPLEX #360 caps 05/26/22 [Rx Confirmed 10/09/22] albuterol sulfate 90 mcg/actuation aerosol inhaler 2 inh inhalation Q6H PRN shortness of breath or wheezing #6.7 grams 06/06/22 [Rx Confirmed 10/09/22] glimepiride 4 mg tablet 6 mg (1.5 x 4 mg) PO QAM 3 months #135 tabs 06/06/22 [Rx Confirmed 10/09/22] levothyroxine 137 mcg tablet 137 mcg PO DAILY #90 tabs 06/06/22 [Rx Confirmed 10/09/22] lisinopril 5 mg tablet 5 mg PO DAILY #90 tabs 06/06/22 [Rx Confirmed 10/09/22] metformin 1,000 mg tablet 1,000 mg PO BID #180 tabs 06/06/22 [Rx Confirmed 10/09/22] omeprazole 20 mg capsule,delayed release 20 mg PO BID #180 caps 06/06/22 [Rx Confirmed 10/09/22] sitagliptin phosphate 50 mg tablet (Januvia) 50 mg PO DAILY #90 tabs 06/19/22 [Rx Confirmed 10/09/22] [facility] Medical History (Updated 09/26/22 @ 07:[address] Wilbert Meyer, DO) Abnormal findings on esophagogastroduodenoscopy (EGD) Anxiety and depression Arthritis Cancer Carpal tunnel syndrome Cervical radiculopathy Chronic bronchitis Chronic headaches Diabetes Fatty liver Gallstones Gastrointestinal problem GERD (gastroesophageal reflux disease) Health care maintenance Heart murmur HTN (hypertension) Hypoglycemia IBS (irritable bowel syndrome) Liver disease Malignant neoplasm of thyroid gland Obesity Pneumonia Seasonal allergies surgery to r hand Thyroid cancer Trigger finger UTI (urinary tract infection) Wears glasses Surgical History Endometriosis determined by laparoscopy History of bilateral breast reduction surgery History of hysterectomy History of removal of cervix but not uterus History of thyroidectomy History of tubal ligation Hx of cholecystectomy Family History Unknown Anemia Anxiety Arthritis Breast cancer Cervical cancer Diabetes Depression Hypertension Respiratory disease Seizures Thyroid disorder LupusAunt Ovarian cancer Social History Smoking Status: Never smoker alcohol intake: never substance use type: does not use what type of physical activity do you participate in: walking HPI right wrist Details: Parts of this documentation were recorded by a scribe, this documentation accurately reflects the service provided and the decisions made by me, SEAN Allen 10/09/22 1317. LETY MEADOWS is a 57 year old F here today for 2 week post-op appointment. DOS: 09/26/2022, right open carpal tunnel release. Patient states that she no longer has any numbness or tingling into her right hand. Patient is still sore over her incision. She denies any pain medications. Patient's incision is healing with no redness or drainage. She has some stiffness but is almost able to make full fist and can straighten fingers. ROS Const Denies chills and Denies fever(s) Card Denies dyspnea Resp Denies dyspnea GI Denies nausea and Denies vomiting Musc Denies numbness and Denies tingling Skin/Breast Denies rash Neuro No numbness and No tingling Ortho Exam General General: Yes no acute distress Neurologic: Yes alert and Yes oriented x3 Psychologic: Yes reasonable and appropriate Right Wrist/Hand Date of Surgery: 09/26/22 Skin/Wound: Yes CDI, Yes healing, Yes suture/teena removed, No Swelling, No Ecchymosis, Yes nail intact and Yes capillary refill normal Right Wrist: Yes ROM-Extension 0-60, ROM-Flexion 0-80, ROM-Pronation 0-80 and ROM-Supination 0-90 WRIST: Inspection of the right wrist/hand shows good approximation of the incision site without any surrounding erythema, discharge, warmth, or other signs of inflammation or infection. She has some tenderness on palpation around the incision site. Patient has intact sensation throughout the extremity including all of her fingers. She has normal distal radial pulses and capillary refill. She has intact motor function of the wrist and fingers as well. Able to fully extend the fingers and can almost make a fist. Left Wrist/Hand Skin/Wound: No Swelling and No Ecchymosis Right Foot/Ankle Skin/Wound: Yes suture/teena removed Head: Normocephalic Atraumatic Chest: symmetrical rise, non-labored breathing, no audible wheeze Abdomen: no guarding, non-rigid Coding Level of Care Code Global Post Op Diagnoses History of carpal tunnel surgery of right wrist Z98.890 Assessment and Plan Assessment and Plan (1) History of carpal tunnel surgery of right wrist: Plan: Patient presents to the office today for a 2 week post-op visit. DOS: 09/26/2022, right open carpal tunnel release. She is doing well overall. Educated her that she should continue to work on gentle AROM for her hand/fingers daily as tolerated. If she is having any difficulties can start her in OT, but at this time the patient declines. Sutures were removed today. She should continue to cleanse the incision with antibacterial soap and water over the next week and keep the area clean. She should not submerge for another 7-10 days until the incision site is completely healed and the sutures holes have closed. She should work on desensitizing the incision area by rubbing it gently at first and then increasing the pressure as tolerated. Once the incision is healed and the holes are closed she can also use Vit E or aloe lotion over the area. She has followed the 0.5 pound weight restriction over the past 2 weeks. Advised she can now start to lift more and can increase to 5 pounds this week as tolerated. After one more week with a weight restriction she can increase her lifting, pushing and pulling as tolerated and as she feel comfortable. Advised the pain she feels over the incision site while trying to push herself up off a chair is normal and this should start to resolve in 3-6 months. These symptoms should continue to improve with time. She is not taking anything for pain currently but can take OTC pain medication as needed in appropriate doses for pain if there are no contraindications. She would like to have her left carpal tunnel released. She should call the office and make an appointment when she is ready for this, discussed appropriate timing. She should follow up as needed or sooner if pain, swelling, numbness,tingling or other associated signs or symptoms appear. The patient's questions were answered. She is in agreement with the plan. 10/10/22 1440 <Electronically signed by Gayathri ESTRADA> Date Gayathri ESTRADA Cosigner Signature: Date (if applicable) CC: ~ I have examined the patient and the H&P has been reviewed. There are no clinical changes since date of exam.
[2023-04-03] MEDS: Clindamycin 900 MG/50 ML BAG 75 MG IV (11:18)
[2023-04-03] MEDS: Lidocaine 1% /Epi 1:100 (20ml) 20 ML Vial (11:39)
--- NOTE | 2023-04-03 11:47 | OP.PCM_ITS ---
Operative Report Date of Procedure: 04/03/23 Preoperative diagnosis; left carpal tunnel syndrome Postoperative diagnosis; same Procedure: Left open carpal tunnel release Anesthesia: Local with MAC Tourniquet time; 13 minutes 250 mm Hg Complications: None Indication for procedure; This is a 57-year-old female with long-standing sym ptoms consistent with carpal tunnel syndrome the patient did have electrodiagnostic evidence of this and has failed conservative treatment. Risks benefits and alternatives were reviewed including risks of bleeding infection nerve artery tissue damage need for further surgery and continued pain and symptoms, hypersensitivity to scar and Pillar pain. Procedure; The patient was met in the preoperative holding area the operative extremity was identified by both patient and physician and was marked the patient was met by anesthesia and brought back to the operating room and transferred to the operating table in the supine position. Anesthesia was started. A well-padded tourniquet was placed on the operative upper extremity. The patient was prepped and draped in the usual sterile fashion. A timeout was called to ensure the proper patient procedure and extremity were being contemplated. 0.5 percent lidocaine with epinephrine was injected into the incisional area. An Esmarch was used to exsanguinate the extremity. The tourniquet was inflated to 250 mmHg. A midline incision was made with a 15 blade scalpel between the thenar and hypothenar eminence. This was carried down through the skin and subcutaneous tissue. Luis Antonio retractors were then used, a deep blade scalpel was used to make a deep incision in the palmar aponeurosis. The luis antonio retractors were then placed deep to this and the transverse carpal ligament was identified a perforation was made with a scalpel and a Littler scissors were used to complete the release of the transverse carpal ligament distally under direct visualization with the tips facing ulnarly until the perivascular fat was reached. Then turning our attention proximally using a tension slide technique the proximal extent of the transverse carpal ligament was released . There was noted to be hourglass configuration to the median nerve and hypertrophy of the transverse carpal ligament with flattening of the median nerve swelling distal to the transverse carpal ligament of the median nerve without other findings. The wound was thoroughly irrigated and was closed with 4-0 nylon vertical mattress stitches. Dressing was applied in the form of xeroform 4 x 4, web roll and an sylvester wrap. Tourniquet was let down there is no intraoperative complications patient tolerated the procedure well and was transferred to the PACU. All counts were correct.
--- NOTE | 2023-04-03 11:49 | DCINST_ITS ---
Discharge Instructions Dressing / Incision Call your doctor if you observe: Shortness of breath and Chest pain Additional Dressing/Incision Instructions:: Ice and elevate operative extremity next 72 hours. Keep dressing on clean and dry for 48 hours then may remove and allow warm soapy water to rinse over incision but do not submerge until sutures are out. Then apply bandaid over incision and change daily. encourage finger range of motion. Not lift more than 1/2 pound. Minimize narcotic use only as needed and directed, may use OTC NSAID and Tylenol to supplement/substitute for pain control. Follow Up Care Please Follow Up With: Wilbert Meyer DO When: 2 weeks Test Results: Test results from this visit will be discussed in further detail at your follow- up appointment, if applicable. Discharge Plan Admission Primary Reason for Your Visit: Left open carpal tunnel release Attending Provider: Wilbert Meyer Primary Care Provider: Kain Zayas Emery Discharge Orders/Prescriptions Prescriptions: New oxycodone 5 mg tablet 5 - 10 mg PO Q4H PRN (Reason: pain) 3 Days Qty: 12 0RF No Action cholecalciferol (vitamin D3) 1,000 unit capsule 1,000 unit PO DAILY calcium carbonate [Calcium 600] 600 mg calcium (1,500 mg) tablet 600 mg PO BID omega-3 fatty acids [Fish Oil Concentrate] 1,000 mg capsule 1,000 mg PO DAILY omeprazole 20 mg capsule,delayed release(DR/EC) 20 mg PO BID Qty: 180 2RF metformin 1,000 mg tablet 1,000 mg PO BID Qty: 180 3RF levothyroxine 137 mcg tablet 137 mcg PO DAILY Qty: 90 2RF albuterol sulfate 90 mcg/actuation HFA aerosol inhaler 2 inh inhalation Q6H PRN (Reason: shortness of breath or wheezing) Qty: 6.7 0RF glimepiride 4 mg tablet 2 mg PO QHS Mounjaro 5 mg/0.5 mL pen injector 5 mg SUBCUT SA vitamin B complex Capsule 1 cap PO DAILY glimepiride 4 mg tablet 4 mg PO QAM lisinopril 5 mg tablet 5 mg PO QHS Zenpep 40,000-126,000- 168,000 unit capsule,delayed release(DR/EC) See Rx Instructions .ROUTE .COMPLEX Qty: 360 5RF Rx Instructions: take 1 by mouth with snacks, take 2 by mouth with meals Referrals / Follow Up: Kain Zayas V[facility], TURBINE OPERATOR-C [Primary Care Provider] - Disposition Disposition (needs filled in before D/C Order can be placed): Home, Self Care
[2023-04-03 11:55] VITALS: BP 110/58; BP 125/76; PULSE 102; RESP 16; TEMP 36.5; O2SAT 92
[2023-04-03 12:00] VITALS: BP 125/76; BP 93/53; PULSE 97; RESP 16; O2SAT 97
[2023-04-03 12:06] VITALS: BP 125/76; BP 95/59; PULSE 88; RESP 17; TEMP 36.3; O2SAT 94
[2023-04-03 12:32] VITALS: BP 125/76
== END 2023-04-03 12:49 | disposition home or self-care (01) ==
LOC: SDC 09:28 → AC 09:29
PROVIDERS: PCP Nurse Practitioner Family; Referring Provider Nurse Practitioner Family; Visit Provider Orthopaedic Surgery
PROC: (CPT 64721; principal; 2023-04-03 10:55)
DX: G56.02 Carpal tunnel syndrome, left upper limb (principal); E11.9 Type 2 diabetes mellitus without complications; Z79.84 Long term (current) use of oral hypoglycemic drugs; I10 Essential (primary) hypertension; Z98.890 Other specified postprocedural states; Z90.710 Acquired absence of both cervix and uterus; Z98.51 Tubal ligation status; Z90.49 Acquired absence of other specified parts of digestive tract
CPT/HCPCS: 64721; 82962; J7120; J2405

== ENCOUNTER → 2023-05-22 | Outpatient (CLI) | payer OTHER, SELFPAY ==
--- NOTE | 2023-05-22 12:53 | BI_ITS ---
MAMMOGRAPHY - BILATERAL SCREENING REASON FOR EXAM: Female, 57 years old. Routine annual screening examination. PERTINENT HISTORY: Grandmother with breast cancer. History of prior bilateral breast reduction surgery. TECHNIQUE: Digital bilateral breast facundo (3D mammographic acquisition) in the CC and MLO projections. 2-D mediolateral oblique (MLO) and craniocaudad (CC) views of both breasts were obtained. CAD: Full Field Digital Mammography with Computer Added Detection was performed. COMPARISON: Comparison is made with prior study of June 02, 2021. FINDINGS: Breast Composition: The breasts are almost entirely fatty. There are no dominant masses or suspicious calcifications. Stable small benign-appearing bilateral axillary lymph nodes. No other significant abnormalities are identified. There has been no significant change since the prior study. BI/SCRN MAMM (CAD)W/FACUNDO BILAT IMPRESSION: Stable bilateral screening mammogram. Yearly follow-up mammogram recommended. (A) ASSESSMENT CATEGORY: BIRADS Category 2: Benign. A letter regarding these results will be sent to the patient by the facility within 30 days. Approximately 10% of breast cancers are not detected by mammography. A normal mammogram should not delay biopsy of a clinically suspicious abnormality. [id number] Electronically Signed: Linden Motley MD at 9:16 EDT ,
== END | disposition home or self-care (01) ==
LOC: OPBI 12:52
PROVIDERS: PCP Nurse Practitioner Family; Referring Provider Nurse Practitioner Family; Visit Provider Nurse Practitioner Family
DX: Z12.31 Encounter for screening mammogram for malignant neoplasm of breast (principal); Z80.3 Family history of malignant neoplasm of breast
CPT/HCPCS: 77063; 77067

== ENCOUNTER → 2023-08-16 | Outpatient (CLI) | payer OTHER, SELFPAY ==
[2023-08-16 16:22] LABS: Absolute Lymphocyte Count 2.85 X10^3/uL (0.83-4.51); Basophil# 0.05 X10^3/uL; Basophil% 0.6 % (0-1); Eosinophil# 0.26 X10^3/uL; Hematocrit 41.3 % (37-47); Hemoglobin 13.7 g/dL (12.0-15.0); Lymphocyte # 2.85 X10^3/ul (0.83-4.51); Mean Corp Hgb Conc 33.2 g/dL (32-36); Mean Corpuscular Hgb 28.4 pg (27.0-32.0); Mean Corpuscular Volume 85.5 fL (81-99); Mean Platelet Vol. 9.4 fl (6.2-12.0); Monocyte# 0.45 X10^3/uL; Monocyte% 5.2 % (0-10); NRBC Flagged by Analyzer 0 % (0-5); Platelet Count 371 K/mm3 (150-450); RBC Distribution Width CV 13.3 % (11.6-14.6); RBC Distribution Width SD 41.1 fl (35.1-43.9); Red Blood Count 4.83 M/mm3 (4.2-5.4); White Blood Count 8.6 K/mm3 (4.4-11.0)
[2023-08-16 17:00] LABS: Vitamin B12 401 pg/mL (211-911); Vitamin D,25 Hydroxy 52.4 ng/mL
[2023-08-16 17:02] LABS: ALB/GLOB Ratio 0.9 RATIO (0.9-2.4); AST(SGOT) 17 U/L (15-37); Alanine Aminotransfer ALT/SGPT 37 U/L (13-56); Albumin, Serum 3.6 g/dL (3.2-5.0); Alkaline Phosphatase 68 U/L (45-117); Anion Gap 10 (5-15); BUN 13 mg/dL (7-18); BUN/Creat Ratio 16.2 RATIO (10-20); Calcium,Total 9.3 mg/dL (8.5-10.1); Chloride 109 mmol/L (98-107); Cholesterol 200 mg/dL (200); EST Glomerular Filtration Rate 78 mL/min (>60); Est Glom Filt Rate - Afr Amer 95 mL/min (>60); Globulin 3.8 g/dL (2.2-4.2); Glucose 115 mg/dL (74-106); High Density Lipoprotein 49 mg/dL; Potassium 4.2 mmol/L (3.5-5.1); Protein, Total 7.4 g/dL (6.4-8.2); Sodium Level 140 mmol/L (136-145); Thyroid Stim Hormone (TSH) 0.12 uIU/mL (0.358-3.74); Triglycerides 260 mg/dL; Very Low Density Lipoprotein 52 mg/dL (5-40)
[2023-08-16 17:07] LABS: Microalbumin,Random Urine 16.1 mg/L (NO RANGE EST.)
== END | disposition home or self-care (01) ==
LOC: VSLAB 14:25
PROVIDERS: PCP Nurse Practitioner Family; Visit Provider Nurse Practitioner Family
DX: E11.9 Type 2 diabetes mellitus without complications (principal); E56.9 Vitamin deficiency, unspecified
CPT/HCPCS: 36415; 80053; 80061; 82043; 82306; 82607; 83735; 84443; 85025

== ENCOUNTER → 2023-08-22 | Outpatient (CLI) | payer OTHER, SELFPAY ==
--- NOTE | 2023-08-22 11:46 | RAD_ITS ---
STUDY: X-RAY - CERVICAL SPINE REASON FOR EXAM: Female, 57 years old. Neck pain. TECHNIQUE: 5 view(s) of the cervical spine were obtained. COMPARISON: September 06, 2022 FINDINGS: Normal anterior atlantoaxial articulation. Normal odontoid process. Normal cervical lordosis. Mild to moderate diffuse uncovertebral and facet sclerosis with fusion of the C2-3 posteriorly.. Normal disc space heights. Normal visualized intervertebral neuroforamina. The soft tissue structures are normal. RAD/Cerv Spine 4 or 5 Views IMPRESSION: Stable mild to moderate uncovertebral and facet sclerosis with posterior fusion at C2-3. No acute abnormality or erosive changes. Electronically Signed: Timothy Macias MD at 15:21 EDT ,
== END | disposition home or self-care (01) ==
LOC: RAD 11:45
PROVIDERS: PCP Nurse Practitioner Family; Referring Provider Nurse Practitioner Family; Visit Provider Nurse Practitioner Family
DX: M54.2 Cervicalgia (principal)
CPT/HCPCS: 72050

== ENCOUNTER 2023-08-31 11:36 | Emergency (ER) | payer OTHER, SELFPAY ==
[2023-08-31 11:37] VITALS: BP 183/110; BP 183/120; PULSE 92; RESP 14; TEMP 36.7; O2SAT 98
[2023-08-31 11:39] VITALS: BMI 31.1
--- NOTE | 2023-08-31 11:51 | EDS_ITS ---
HPI <SEAN Leblanc - Last Filed: 08/31/23 12:33> History of Present Illness Chief Complaint: Lower Extremity Injury Narrative Narrative: 57-year-old female slipped on wet grass this evening and rolled her left ankle. She used an Caden wrap and elevated it but this morning it is still swollen and painful with ambulation. She feels a pop with walking. She is able to bear weight. She has no numbness or tingling or weakness. PFSH <SEAN Leblanc - Last Filed: 08/31/23 12:33> [facility] Medical History (Updated 08/31/23 @ 13:[address] Esa Fleming MD) Cancer History of stress test Anxiety Depression History of steroid therapy Thyroid disease Diabetes Easy bruising Restless legs Injury of head and neck Migraine headache Dietary restriction History of hiatal hernia Non-smoker Shortness of breath on exertion Leg cramps Obesity Cervical radiculopathy Wears glasses Arthritis Fatty liver Health care maintenance Anxiety and depression Abnormal findings on esophagogastroduodenoscopy (EGD) Malignant neoplasm of thyroid gland Trigger finger surgery to r hand Thyroid cancer GERD (gastroesophageal reflux disease) Liver disease HTN (hypertension) Chronic headaches Diabetes Home Medications ?Medication ?Instructions ?Recorded ?Last Taken ?Type calcium carbonate (Calcium 600) 600 mg PO BID 11/27/18 09/05/21 History cholecalciferol (vitamin D3) 25 1,000 unit PO DAILY 11/27/18 09/05/21 History mcg (1,000 unit) capsule omega-3 fatty acids 1,000 mg 1,000 mg PO DAILY 11/27/18 09/05/21 History capsule (Fish Oil Concentrate) [id number] See Rx Instructions .Route 05/26/22 Unknown Rx 40,000-126,000-168,000 unit .COMPLEX #360 caps capsule, delay rel (Zenpep) albuterol sulfate 90 mcg/actuation 2 inh inhalation Q6H PRN shortness 06/06/22 Unknown Rx aerosol inhaler of breath or wheezing #6.7 grams levothyroxine 137 mcg tablet 137 mcg PO DAILY #90 tabs 06/06/22 04/03/23 Rx metformin 1,000 mg tablet 1,000 mg PO BID #180 tabs 06/06/22 Unknown Rx omeprazole 20 mg capsule,delayed 20 mg PO BID #180 caps 06/06/22 04/03/23 Rx release glimepiride 4 mg tablet 2 mg PO QHS 02/28/23 Unknown History glimepiride 4 mg tablet 4 mg PO QAM 02/28/23 Unknown History lisinopril 5 mg tablet 5 mg PO QHS 02/28/23 Unknown History tirzepatide 5 mg/0.5 mL 5 mg subcut SA 02/28/23 Unknown History subcutaneous pen injector (Daneunjaro) vitamin B complex 1 cap PO DAILY 02/28/23 Unknown History Allergy/AdvReac Type Severity Reaction Status Date / Time adhesive tape Allergy Intermediate Swelling Verified 08/31/23 11:37 cephalexin (From Keflex) Allergy Intermediate Rash Verified 08/31/23 11:37 Sulfa (Sulfonamide Allergy Intermediate Unknown Verified 08/31/23 11:37 Antibiotics) sulfamethoxazole (From Allergy Intermediate Rash Verified 08/31/23 11:37 Bactrim) trimethoprim (From Bactrim) Allergy Intermediate Rash Verified 08/31/23 11:37 Family History Unknown Anemia Anxiety Arthritis Breast cancer Cervical cancer Diabetes Depression Hypertension Respiratory disease Seizures Thyroid disorder Lupus Aunt Ovarian cancer Surgical History History of carpal tunnel surgery of right wrist History of bilateral breast reduction surgery Hx of cholecystectomy History of thyroidectomy History of removal of cervix but not uterus History of hysterectomy Endometriosis determined by laparoscopy History of tubal ligation Social History Smoking Status: Never smoker alcohol intake: never substance use type: does not use what type of physical activity do you participate in: walking ROS <SEAN Leblanc - Last Filed: 08/31/23 12:33> ROS ED ROS Narrative Neuro: Negative for motor/sensory dysfunction. Skin: Negative for rash, abscess, or wound. Musc: Positive for left ankle pain, swelling, trauma. EXAM <SEAN Leblanc - Last Filed: 08/31/23 12:33> Physical Exam Narrative Exam Narrative: CONST: Patient sitting in no acute distress. EYES: Normal inspection. NECK: Normal inspection. SKIN: Color normal, no rash, warm, dry, intact. EXTREMITIES: Left lateral ankle swelling and tenderness over the lateral malleolus. No proximal fibular tenderness, no foot tenderness. Achilles intact and able to plantar and dorsiflex. Normal sensation, 2+ DP pulse. NEURO: Alert and answering questions appropriately. PSYCH: Normal affect. Const Vital Signs: 08/31/23 11:37 08/31/23 11:37 08/31/23 13:22 Temperature 98.1 F 97.8 F Temperature Source Temporal Pulse Rate 92 92 84 Respiratory Rate 14 14 16 Blood Pressure 183/110 H 183/120 H 132/80 H Blood Pressure Mean 134 141 97 Pulse Ox 98 98 97 Oxygen Delivery Method Room Air Room Air <Dr. Esa Fleming MD - Last Filed: 08/31/23 13:35> Physical Exam Const Vital Signs: 08/31/23 11:37 08/31/23 11:37 08/31/23 13:22 Temperature 98.1 F 97.8 F Temperature Source Temporal Pulse Rate 92 92 84 Respiratory Rate 14 14 16 Blood Pressure 183/110 H 183/120 H 132/80 H Blood Pressure Mean 134 141 97 Pulse Ox 98 98 97 Oxygen Delivery Method Room Air Room Air MDM <SEAN Leblanc - Last Filed: 08/31/23 12:33> [facility] Narrative Medical decision making narrative: Differential: Ankle sprain versus fracture Patient rolled her left ankle. She is tender over the lateral malleolus and neurovascularly intact. X-ray shows no fracture or dislocation. She was given an Aircast and counseled on RICE protocol. She was discharged in stable condition. I have personally performed a face to face assessment of the patient and have reviewed the KISHOR Note. I performed a substantive portion of the visit including all aspects of the following. My hicks findings include: History is remarkable for plan inversion mechanism injury. She injured her left ankle. She is injured the right in the past. She denies paresthesia, anesthesia medics. She has pain with ambulation/weightbearing Exam is there is soft tissue swelling with pain outpatient over the lateral malleolus and the distal to 3 cm. There is no laxity with drawer testing. There is no true tenderness over the base of the fifth metatarsal. DP pulses palpable. There is no laxity with drawer testing. Medical Decision Making. The ankle Hoopa rule imaging is indicated. Three- view x-ray of the left ankle was obtained. Patient was offered p.o. pain meds. Other additions or changes: [None] Radiography Diagnostic Testing: Clinical Impression(s) from Imaging Studies Ankle X-Ray 08/31/23 12:11 IMPRESSION: Small plantar calcaneal spur. Soft tissue swelling overlying the lateral ankle. No demonstrated fracture. Electronically Signed: Dylan Haines MD at 12:26 EDT , ED attending interpretation of left ankle shows no fracture or dislocation. <Dr. Esa Fleming MD - Last Filed: 08/31/23 13:35> [facility] MDM Narrative Medical decision making narrative: Differential: Ankle sprain versus fracture Patient rolled her left ankle. She is tender over the lateral malleolus and neurovascularly intact. X-ray shows no fracture or dislocation. She was given an Aircast and counseled on RICE protocol. She was discharged in stable condition. I have personally performed a face to face assessment of the patient and have reviewed the KISHOR Note. I performed a substantive portion of the visit including all aspects of the following. My hicks findings include: History is remarkable for plan inversion mechanism injury. She injured her left ankle. She is injured the right in the past. She denies paresthesia, anesthes ia medics. She has pain with ambulation/weightbearing Exam is there is soft tissue swelling with pain outpatient over the lateral malleolus and the distal to 3 cm. There is no laxity with drawer testing. There is no true tenderness over the base of the fifth metatarsal. DP pulses palpable. There is no laxity with drawer testing. Medical Decision Making. The ankle Hoopa rule imaging is indicated. Three- view x-ray of the left ankle was obtained. Patient was offered p.o. pain meds. Other additions or changes: Three-view x-ray of the left ankle reveals soft tissue swelling laterally. There is no evidence of fracture, subluxation or dislocation. This is independent reviewed interpreted by me. ([id number]) Radiography Diagnostic Testing: Clinical Impression(s) from Imaging Studies Ankle X-Ray 08/31/23 12:11 IMPRESSION: Small plantar calcaneal spur. Soft tissue swelling overlying the lateral ankle. No demonstrated fracture. Electronically Signed: Dylan Haines MD at 12:26 EDT , Discharge Plan Triage Chief Complaint: Lower Extremity Injury ED Midlevel Provider: Sue Candelaria ED Provider: Esa Fleming Dx/Rx/DC Orders Clinical Impression: Sprain of anterior talofibular ligament of left ankle, Type 2 diabetes mellitus, Hypertension Instructions: ED Ankle Sprain (Adult) Prescriptions: No Action cholecalciferol (vitamin D3) 1,000 unit capsule 1,000 unit PO DAILY calcium carbonate [Calcium 600] 600 mg calcium (1,500 mg) tablet 600 mg PO BID omega-3 fatty acids [Fish Oil Concentrate] 1,000 mg capsule 1,000 mg PO DAILY omeprazole 20 mg capsule,delayed release(DR/EC) 20 mg PO BID Qty: 180 2RF metformin 1,000 mg tablet 1,000 mg PO BID Qty: 180 3RF levothyroxine 137 mcg tablet 137 mcg PO DAILY Qty: 90 2RF albuterol sulfate 90 mcg/actuation HFA aerosol inhaler 2 inh inhalation Q6H PRN (Reason: shortness of breath or wheezing) Qty: 6.7 0RF glimepiride 4 mg tablet 2 mg PO QHS Mounjaro 5 mg/0.5 mL pen injector 5 mg SUBCUT SA vitamin B complex Capsule 1 cap PO DAILY glimepiride 4 mg tablet 4 mg PO QAM lisinopril 5 mg tablet 5 mg PO QHS Zenpep 40,000-126,000- 168,000 unit capsule,delayed release(DR/EC) See Rx Instructions .ROUTE .COMPLEX Qty: 360 5RF Rx Instructions: take 1 by mouth with snacks, take 2 by mouth with meals Primary Care Provider: Kain Zayas Referrals: Kain Zayas, RESEARCH AND DEVELOPMENT TECHNICIAN-C [Primary Care Provider] - Activity Restrictions/Additional Instructions: Rest, ice, elevate your ankle. Wear the ankle stirrup as needed for support until it heals. Alternate Tylenol and ibuprofen. Print Language: Mosotho Disposition Disposition: Home, Self Care Discharge Date/Time: 08/31/23 13:24
[2023-08-31] MEDS: Ibuprofen 600 MG Tablet PO (12:01)
--- NOTE | 2023-08-31 12:11 | RAD_ITS ---
STUDY: X-RAY - LEFT ANKLE REASON FOR EXAM: Female, 57 years old. Pain. TECHNIQUE: 3 views of the left ankle. COMPARISON: None. FINDINGS: Normal visualized distal tibia and fibula. Normal medial and lateral malleoli. Normal tibiotalar articulation and ankle mortise. Intact visualized talus and calcaneus. There is a small plantar calcaneal spur. The visualized subtalar, talonavicular, calcaneocuboid and tarsal articulations are normal. There is no demonstrated fracture. There is soft tissue swelling overlying the lateral ankle. RAD/Ankle min 3 Views IMPRESSION: Small plantar calcaneal spur. Soft tissue swelling overlying the lateral ankle. No demonstrated fracture. Electronically Signed: Dylan Haines MD at 12:26 EDT ,
[2023-08-31 13:22] VITALS: BP 132/80; PULSE 84; RESP 16; TEMP 36.6; O2SAT 97
== END 2023-08-31 13:24 | disposition home or self-care (01) ==
PROVIDERS: Emergency Provider Emergency Medicine; PCP Nurse Practitioner Family; Visit Provider Emergency Medicine
DX: S93.492A Sprain of other ligament of left ankle, initial encounter (principal); E11.9 Type 2 diabetes mellitus without complications; I10 Essential (primary) hypertension; W01.0XXA Fall on same level from slipping, tripping and stumbling without subsequent striking against object, initial encounter; Z79.84 Long term (current) use of oral hypoglycemic drugs; K21.9 Gastro-esophageal reflux disease without esophagitis; Z79.899 Other long term (current) drug therapy; Z90.49 Acquired absence of other specified parts of digestive tract; Z90.710 Acquired absence of both cervix and uterus; Z98.51 Tubal ligation status
CPT/HCPCS: 73610; 99283

== ENCOUNTER → 2023-11-23 | Outpatient (CLI) | payer OTHER, SELFPAY ==
[2023-11-23 09:06] LABS: Thyroid Stim Hormone (TSH) 0.734 uIU/mL (0.358-3.740)
== END | disposition home or self-care (01) ==
LOC: LAB 07:49
PROVIDERS: PCP Nurse Practitioner Family; Referring Provider Nurse Practitioner Family; Visit Provider Nurse Practitioner Family
DX: E03.9 Hypothyroidism, unspecified (principal)
CPT/HCPCS: 36415; 84443

== ENCOUNTER 2023-12-25 17:31 | Emergency (ER) | payer OTHER, SELFPAY ==
[2023-12-25 17:34] VITALS: BP 140/86; PULSE 105; RESP 18; TEMP 36.6; O2SAT 97; BMI 29.9
[2023-12-25 17:36] VITALS: BP 140/86; PULSE 104; RESP 18; TEMP 36.6; O2SAT 94
[2023-12-25 18:36] VITALS: BP 126/82; PULSE 92; RESP 17; TEMP 36.6; O2SAT 97
[2023-12-25 19:00] VITALS: BP 128/83; PULSE 87; RESP 18; TEMP 36.6; O2SAT 97
--- NOTE | 2023-12-25 19:11 | EDS_ITS ---
HPI History of Present Illness Chief Complaint: Wound Check Informant: patient and spouse/S.O. Narrative Narrative: 58-year-old diabetic female states 2 days ago she had an injury where the dog's leash got wrapped around her left ankle and caused a burn/abrasion, and at the same time caused her to fall onto her left side, injuring her left hip minorly and possibly the left ankle she is not sure if it twisted or not. She always has some issues in that ankle because of a prior sprain. She states it is hurting worse today and she is wondering if maybe the wound that was there is infected. [facility] Medical History (Updated 12/25/23 @ 20:[address] Roly Menendez MD) Cancer History of stress test Anxiety Depression History of steroid therapy Thyroid disease Diabetes Easy bruising Restless legs Injury of head and neck Migraine headache Dietary restriction History of hiatal hernia Non-smoker Shortness of breath on exertion Leg cramps Obesity Cervical radiculopathy Wears glasses Arthritis Fatty liver Health care maintenance Anxiety and depression Abnormal findings on esophagogastroduodenoscopy (EGD) Malignant neoplasm of thyroid gland Trigger finger surgery to r hand Thyroid cancer GERD (gastroesophageal reflux disease) Liver disease HTN (hypertension) Chronic headaches Diabetes Home Medications ?Medication ?Instructions ?Recorded ?Last Taken ?Type calcium carbonate (Calcium 600) 600 mg PO BID 11/27/18 09/05/21 History cholecalciferol (vitamin D3) 25 1,000 unit PO DAILY 11/27/18 09/05/21 History mcg (1,000 unit) capsule omega-3 fatty acids 1,000 mg 1,000 mg PO DAILY 11/27/18 09/05/21 History capsule (Fish Oil Concentrate) [id number] See Rx Instructions .Route 05/26/22 Unknown Rx 40,000-126,000-168,000 unit .COMPLEX #360 caps capsule, delay rel (Zenpep) albuterol sulfate 90 mcg/actuation 2 inh inhalation Q6H PRN shortness 06/06/22 Unknown Rx aerosol inhaler of breath or wheezing #6.7 grams levothyroxine 137 mcg tablet 137 mcg PO DAILY #90 tabs 06/06/22 04/03/23 Rx metformin 1,000 mg tablet 1,000 mg PO BID #180 tabs 06/06/22 Unknown Rx omeprazole 20 mg capsule,delayed 20 mg PO BID #180 caps 06/06/22 04/03/23 Rx release glimepiride 4 mg tablet 2 mg PO QHS 02/28/23 Unknown History glimepiride 4 mg tablet 4 mg PO QAM 02/28/23 Unknown History lisinopril 5 mg tablet 5 mg PO QHS 02/28/23 Unknown History tirzepatide 5 mg/0.5 mL 5 mg subcut SA 02/28/23 Unknown History subcutaneous pen injector (Susi) vitamin B complex 1 cap PO DAILY 02/28/23 Unknown History doxycycline monohydrate 100 mg 100 mg PO BID #20 CAPSULES 12/25/23 Unknown Rx capsule Allergy/AdvReac Type Severity Reaction Status Date / Time adhesive tape Allergy Intermediate Swelling Verified 12/25/23 18:54 cephalexin (From Keflex) Allergy Intermediate Rash Verified 12/25/23 18:54 Sulfa (Sulfonamide Allergy Intermediate Unknown Verified 12/25/23 18:54 Antibiotics) sulfamethoxazole (From Allergy Intermediate Rash Verified 12/25/23 18:54 Bactrim) trimethoprim (From Bactrim) Allergy Intermediate Rash Verified 12/25/23 18:54 Family History Unknown Anemia Anxiety Arthritis Breast cancer Cervical cancer Diabetes Depression Hypertension Respiratory disease Seizures Thyroid disorder Lupus Aunt Ovarian cancer Surgical History History of carpal tunnel surgery of right wrist History of bilateral breast reduction surgery Hx of cholecystectomy History of thyroidectomy History of removal of cervix but not uterus History of hysterectomy Endometriosis determined by laparoscopy History of tubal ligation Social History Smoking Status: Never smoker alcohol intake: never substance use type: does not use what type of physical activity do you participate in: walking ROS ROS ED Constitutional Constitutional ED: Denies chills or fever(s) Musculoskeletal Musculoskeletal: Reports extremity pain; Denies neck pain Integumentary Reports Abrasions and wounds; Denies rash Neurologic Neurologic: Denies paresthesias or weakness EXAM Physical Exam Const Vital Signs: 12/25/23 17:34 12/25/23 17:36 12/25/23 18:36 Temperature 97.8 F 97.8 F 97.9 F Temperature Source Oral Oral Oral Pulse Rate 105 H 104 H 92 Respiratory Rate 18 18 17 Blood Pressure 140/86 H 140/86 H 126/82 H Blood Pressure Mean 104 104 96 Pulse Ox 97 94 97 Oxygen Delivery Method Room Air Room Air Room Air 12/25/23 19:00 12/25/23 19:27 12/25/23 20:12 Temperature 98 F 97.8 F Temperature Source Temporal Pulse Rate 87 87 94 Respiratory Rate 18 20 H 18 Blood Pressure 128/83 H 128/83 H 120/78 Blood Pressure Mean 98 98 92 Pulse Ox 97 97 96 Oxygen Delivery Method Room Air Room Air Positive well nourished and well developed General Appearance ED: well developed and NAD Neck full ROM and supple Back/Spine normal ROM and normal to inspection Extremity Extremity Narrative: Mildly tender left greater trochanter/hip, but full range of motion without any groin pain or significant pain with ranging. Full range of motion of the left ankle, the lateral malleolus is swollen and tender, there is a linear abrasion horizontally over this area and anteriorly, it is scabbed, there is no abscess or drainage, there is a very slight amount of erythema around the scabs, and the area over the lateral malleolus is extremely tender at a proportion to the way it looks. Neuro oriented x3, no focal motor deficits and no sensory deficits noted Sensorium / Orientation: alert Psych mental status grossly normal and thought process normal Skin Skin Narrative: See above for description of left lateral ankle/foot wound. No other wounds or abrasions. No lymphangitis. MDM MDM MDM Narrative Medical decision making narrative: At first class this wound appears to clean with a slight amount of inflammatory erythema around it consistent with a healing abrasion, however it is tender out of proportion to its appearance suggesting maybe it is infected. Since there is some swelling there and tenderness at the lateral malleolus I obtained a three- view x-ray series of the ankle first to make sure there was no fracture, on my interpretation it is negative for fracture, there appears to be a bone cyst in the lateral malleolus/distal fibula. Patient states she cannot tolerate Keflex, or sulfa drugs. I am going to put her on doxycycline and advise close outpatient follow-up she is comfortable with that plan. She is not septic or having abnormal vital signs so I do not think she needs other metabolic testing at this time. Radiography Diagnostic Testing: Clinical Impression(s) from Imaging Studies Ankle X-Ray 12/25/23 19:24 IMPRESSION: No evidence for acute fracture or dislocation. Incidental finding of nonspecific sclerosis within the calcaneus most likely benign. CT or MRI may be helpful for further evaluation clinically warranted Electronically Signed: Roberto Anne MD at 20:14 EDT Reading Location ID and State: [facility] / [place] Tel , Service support , Discharge Plan Triage Chief Complaint: Wound Check ED Provider: Roly Menendez Dx/Rx/DC Orders Clinical Impression: Wound infection, posttraumatic Instructions: ED Wound Check (Infection) Prescriptions: New doxycycline monohydrate 100 mg capsule 100 mg PO BID Qty: 20 0RF No Action cholecalciferol (vitamin D3) 1,000 unit capsule 1,000 unit PO DAILY calcium carbonate [Calcium 600] 600 mg calcium (1,500 mg) tablet 600 mg PO BID omega-3 fatty acids [Fish Oil Concentrate] 1,000 mg capsule 1,000 mg PO DAILY omeprazole 20 mg capsule,delayed release(DR/EC) 20 mg PO BID Qty: 180 2RF metformin 1,000 mg tablet 1,000 mg PO BID Qty: 180 3RF levothyroxine 137 mcg tablet 137 mcg PO DAILY Qty: 90 2RF albuterol sulfate 90 mcg/actuation HFA aerosol inhaler 2 inh inhalation Q6H PRN (Reason: shortness of breath or wheezing) Qty: 6.7 0RF glimepiride 4 mg tablet 2 mg PO QHS Mounjaro 5 mg/0.5 mL pen injector 5 mg SUBCUT SA vitamin B complex Capsule 1 cap PO DAILY glimepiride 4 mg tablet 4 mg PO QAM lisinopril 5 mg tablet 5 mg PO QHS Zenpep 40,000-126,000- 168,000 unit capsule,delayed release(DR/EC) See Rx Instructions .ROUTE .COMPLEX Qty: 360 5RF Rx Instructions: take 1 by mouth with snacks, take 2 by mouth with meals Primary Care Provider: Kain Zayas Referrals: Kain Zayas, [employer] [Primary Care Provider] - 3-5 Days if not improving Print Language: Mongolian Disposition Disposition: Home, Self Care Discharge Date/Time: 12/25/23 20:18
--- NOTE | 2023-12-25 19:24 | RAD_ITS ---
STUDY: X-RAY - LEFT ANKLE REASON FOR EXAM: Female, 58 years old. pain/injury TECHNIQUE: 3 view(s) of the ankle. COMPARISON: None. FINDINGS: Normal visualized distal tibia and fibula. Normal medial and lateral malleoli. Normal tibiotalar articulation and ankle mortise. Normal visualized talus. Small plantar calcaneal spur. Increased bony sclerosis within the calcaneus of uncertain etiology The visualized subtalar, talonavicular, calcaneocuboid and tarsal articulations are normal. The soft tissue structures are unremarkable. RAD/Ankle min 3 Views IMPRESSION: No evidence for acute fracture or dislocation. Incidental finding of nonspecific sclerosis within the calcaneus most likely benign. CT or MRI may be helpful for further evaluation clinically warranted Electronically Signed: Roberto Anne MD at 20:14 EDT ,
[2023-12-25 19:27] VITALS: BP 128/83; PULSE 87; RESP 20; O2SAT 97
[2023-12-25] MEDS: Doxycycline 100 MG CAPSULE PO (20:10)
[2023-12-25 20:12] VITALS: BP 120/78; PULSE 94; RESP 18; TEMP 36.6; O2SAT 96
== END 2023-12-25 20:18 | disposition home or self-care (01) ==
PROVIDERS: Emergency Provider Emergency Medicine; PCP Nurse Practitioner Family; Visit Provider Emergency Medicine
DX: L08.9 Local infection of the skin and subcutaneous tissue, unspecified (principal); E11.9 Type 2 diabetes mellitus without complications; I10 Essential (primary) hypertension; W18.39XA Other fall on same level, initial encounter; Y93.K1 Activity, walking an animal; Z85.850 Personal history of malignant neoplasm of thyroid; Z79.899 Other long term (current) drug therapy; Z79.84 Long term (current) use of oral hypoglycemic drugs; K21.9 Gastro-esophageal reflux disease without esophagitis; Z79.85 Long-term (current) use of injectable non-insulin antidiabetic drugs; Z90.49 Acquired absence of other specified parts of digestive tract; Z90.710 Acquired absence of both cervix and uterus; Z98.51 Tubal ligation status
CPT/HCPCS: 73610; 99282

== ENCOUNTER → 2024-04-09 | Outpatient (CLI) | payer OTHER, SELFPAY ==
[2024-04-09 13:07] LABS: Absolute Neutrophil Count 4.4 X10^3/uL (2.0-7.7); Basophil# 0.06 X10^3/uL; Basophil% 0.8 % (0-1); Eosinophil# 0.23 X10^3/uL; Eosinophils% 2.9 % (0-5); Hematocrit 42.7 % (37-47); Hemoglobin 14.1 g/dL (12.0-15.0); Lymphocyte % 34.6 % (19-41); Mean Corpuscular Volume 84.9 fL (81-99); Mean Platelet Vol. 9.4 fl (6.2-12.0); Monocyte# 0.43 X10^3/uL; Monocyte% 5.5 % (0-10); NRBC Flagged by Analyzer 0 % (0-5); Neutrophil # 4.36 X10^3/uL (2.7-7.7); Neutrophil % 55.9 % (47-70); Platelet Count 331 K/mm3 (150-450); RBC Distribution Width CV 13.2 % (11.6-14.6); RBC Distribution Width SD 40.9 fl (35.1-43.9); Red Blood Count 5.03 M/mm3 (4.2-5.4); White Blood Count 7.8 K/mm3 (4.4-11.0)
[2024-04-09 13:32] LABS: Vitamin B12 > 2000 pg/mL (211-911); Vitamin D,25 Hydroxy 59.3 ng/mL
[2024-04-09 14:01] LABS: Anion Gap 7 (5-15); BUN 12 mg/dL (7-18); BUN/Creat Ratio 13.1 RATIO (10-20); Calcium,Total 9.2 mg/dL (8.5-10.1); Chloride 110 mmol/L (98-107); Creatinine, Serum 0.92 mg/dL (0.55-1.02); EST Glomerular Filtration Rate 67 mL/min (>60); Est Glom Filt Rate - Afr Amer 81 mL/min (>60); Glucose 117 mg/dL (74-106); Sodium Level 140 mmol/L (136-145); T4 Free Direct 1.56 ng/dL (0.76-1.46); T4 Total, Thyroxin 13.8 ug/dL (4.8-13.9); Thyroid Stim Hormone (TSH) 0.178 uIU/mL (0.358-3.740)
== END | disposition home or self-care (01) ==
LOC: VSLAB 12:17
PROVIDERS: PCP Nurse Practitioner Family; Visit Provider Nurse Practitioner Family
DX: E03.9 Hypothyroidism, unspecified (principal); I10 Essential (primary) hypertension; E55.9 Vitamin D deficiency, unspecified; E53.8 Deficiency of other specified B group vitamins
CPT/HCPCS: 36415; 80048; 82306; 82607; 84436; 84439; 84443; 85025

== ENCOUNTER → 2024-04-24 | Outpatient (CLI) | payer OTHER, SELFPAY ==
--- NOTE | 2024-04-24 09:32 | US_ITS ---
PROCEDURE: BREAST LIMITED UNILATERAL REASON FOR EXAM: right breast pain. TECHNIQUE: Targeted right breast ultrasound. COMPARISON: Comparison is made with prior mammogram done earlier in the day. FINDINGS: RIGHT: Right breast ultrasound was targeted to the retroareolar region.. The breast tissue appears sonographically normal. No cyst, solid mass, or suspicious shadowing. US/Breast Limited Unilateral IMPRESSION: BI-RADS 1: NEGATIVE. RECOMMEND ANNUAL MAMMOGRAPHIC SCREENING. Follow-up code: Routine Follow-up Reading Location: [id number]
--- NOTE | 2024-04-24 09:32 | US_ITS ---
PROCEDURE: BREAST LIMITED UNILATERAL REASON FOR EXAM: Breast pain. TECHNIQUE: Targeted left breast ultrasound. COMPARISON: Comparison is made with prior mammogram done earlier in the day. FINDINGS: LEFT: Left breast ultrasound was targeted to the upper and inferior lateral aspect of the left breast.. The breast tissue appears sonographically normal. No cyst, solid mass, or suspicious shadowing. US/Breast Limited Unilateral IMPRESSION: BI-RADS 1: NEGATIVE. RECOMMEND ANNUAL MAMMOGRAPHIC SCREENING. Follow-up code: Routine Follow-up Reading Location: [id number]
--- NOTE | 2024-04-24 09:32 | BI_ITS ---
PROCEDURE: DIAG MAMM W/CAD, BILAT REASON FOR EXAM: F, Age 58 y/o, prior bilateral breast reduction surgery. Bilateral breast pain. TECHNIQUE: Bilateral screening digital breast tomosynthesis with 2D and 3D images. Computer aided detection. COMPARISON: Prior exam(s) dating back to May 22, 2023.. FINDINGS: The breasts are almost entirely fatty. Stable fat containing bilateral axillary lymph nodes. No suspicious masses, areas of developing architectural distortion, or suspicious calcifications. With the patient's history of breast pain bilaterally, targeted correlation with ultrasound recommended. BI/DIAG MAMM W/CAD, BILAT IMPRESSION: BI-RADS 0: INCOMPLETE - NEED ADDITIONAL IMAGING EVALUATION. Follow-up code: Sonographic follow-up. The patient will be notified of the results by letter. Reading Location: [id number]
== END | disposition home or self-care (01) ==
LOC: OPBI 09:30
PROVIDERS: PCP Nurse Practitioner Family; Referring Provider Nurse Practitioner Family; Visit Provider Nurse Practitioner Family
DX: N64.4 Mastodynia (principal)
CPT/HCPCS: 76642; 77062; 77066; G0279

== ENCOUNTER → 2024-08-27 | Outpatient (CLI) | payer OTHER, SELFPAY | END | disposition home or self-care (01) | LOC: RAD 11:04 | PROVIDERS: PCP Nurse Practitioner Family; Referring Provider Orthopaedic Surgery; Visit Provider Orthopaedic Surgery | DX: M25.531 Pain in right wrist (principal); M79.601 Pain in right arm | CPT/HCPCS: 72040; 73110 ==

== ENCOUNTER 2024-10-07 18:24 | Emergency (ER) | payer OTHER, SELFPAY ==
[2024-10-07 18:24] VITALS: BP 164/91; PULSE 70; RESP 18; TEMP 36.4; O2SAT 98
--- NOTE | 2024-10-07 18:42 | ED.VIS.FALL ---
HPI HPI - Fall History of Present Illness Chief Complaint: Fall Informant: patient and spouse/S.O. Occured/Mechanism Occurred: Today and Hours Usually ambulates: Without assistance Pain/Injury Pain Location: back Quality of Pain: Sharp Current Severity: Moderate Maximum Severity: Moderate Associated Symptoms Associated Symptoms: Negative for Parasthesias, Weakness, Loss of function, Inability to ambulate, Loss of consciousness or Amnesia Narrative Narrative: 59-year-old female history of hypertension diabetes. On no blood thinners. Was walking inside her home for the last 2 steps in her car. She slipped and missed a step fell down the last 2 steps hitting her buttocks and lower back. Complaining of lower back pain and right iliac crest pain. Denies hitting her head. No LOC. No headache. No head pain. No neck pain. No chest or abdominal pain. Denies any recent illness. Denies any arm or leg pain. Prior similar symptoms: No Recent Illness/Hospitalization: No PFSH PFSH Medical History Cancer History of stress test Anxiety Depression History of steroid therapy Thyroid disease Diabetes Easy bruising Restless legs Injury of head and neck Migraine headache Dietary restriction History of hiatal hernia Non-smoker Shortness of breath on exertion Leg cramps Obesity Cervical radiculopathy Wears glasses Arthritis Fatty liver Health care maintenance Anxiety and depression Abnormal findings on esophagogastroduodenoscopy (EGD) Malignant neoplasm of thyroid gland Trigger finger surgery to r hand Thyroid cancer GERD (gastroesophageal reflux disease) Liver disease HTN (hypertension) Chronic headaches Diabetes Home Medications ?Medication ?Instructions ?Recorded ?Last Taken ?Type calcium carbonate (Calcium 600) 600 mg PO BID 11/27/18 10/07/24 History cholecalciferol (vitamin D3) 25 1,000 unit PO DAILY 11/27/18 10/07/24 History mcg (1,000 unit) capsule omega-3 fatty acids 1,000 mg 1,000 mg PO DAILY 11/27/18 10/07/24 History capsule (Fish Oil Concentrate) [id number] See Rx Instructions .Route 05/26/22 10/07/24 Rx 40,000-126,000-168,000 unit .COMPLEX #360 caps capsule, delay rel (Zenpep) albuterol sulfate 90 mcg/actuation 2 inh inhalation Q6H PRN shortness 06/06/22 Unknown Rx aerosol inhaler of breath or wheezing #6.7 grams levothyroxine 137 mcg tablet 137 mcg PO DAILY #90 tabs 06/06/22 10/07/24 Rx omeprazole 20 mg capsule,delayed 20 mg PO BID #180 caps 06/06/22 10/07/24 Rx release lisinopril 5 mg tablet 5 mg PO QHS 02/28/23 10/07/24 History tirzepatide 5 mg/0.5 mL 5 mg subcut SA 02/28/23 Unknown History subcutaneous pen injector (Mounjaro) vitamin B complex 1 cap PO DAILY 02/28/23 10/07/24 History mecobalamin (vitamin B12) 1,000 1,000 mcg PO QDAY 08/27/24 10/07/24 History mcg lozenges Allergy/AdvReac Type Severity Reaction Status Date / Time adhesive tape Allergy Intermediate Swelling Verified 10/07/24 18:25 cephalexin (From Keflex) Allergy Intermediate Rash Verified 10/07/24 18:25 Sulfa (Sulfonamide Allergy Intermediate Unknown Verified 10/07/24 18:25 Antibiotics) sulfamethoxazole (From Allergy Intermediate Rash Verified 10/07/24 18:25 Bactrim) trimethoprim (From Bactrim) Allergy Intermediate Rash Verified 10/07/24 18:25 Family History Unknown Anemia Anxiety Arthritis Breast cancer Cervical cancer Diabetes Depression Hypertension Respiratory disease Seizures Thyroid disorder Lupus Aunt Ovarian cancer Surgical History History of carpal tunnel surgery of right wrist History of bilateral breast reduction surgery Hx of cholecystectomy History of thyroidectomy History of removal of cervix but not uterus History of hysterectomy Endometriosis determined by laparoscopy History of tubal ligation Social History Smoking Status: Never smoker alcohol intake: never substance use type: does not use what type of physical activity do you participate in: walking ROS ROS ED ROS Narrative Denies recent illness. Constitutional Constitutional ED: Denies chills or fever(s) Eyes Eyes: Denies blurry vision ENT ENT ED: Denies ear pain Cardiovascular Cardiovascular: Denies chest pain Respiratory/Chest Respiratory/Chest: Denies cough or dyspnea Gastrointestinal Gastrointestinal: Denies abdominal pain, diarrhea, nausea or vomiting Genitourinary Genitourinary ED: Denies dysuria or hematuria Musculoskeletal Musculoskeletal: Reports back pain and other Details: Lower back pain post fall. ; Denies arthralgias, myalgias or neck pain Integumentary Denies abscess or Abrasions Neurologic Neurologic: Denies headache(s) Psychiatric Psychiatric: Denies anxiety or depression Endocrine Endocrinology: Denies polydipsia Hematologic/Lymphatic Hematologic/Lymphatic: Denies easy bleeding, easy bruising or lymphadenopathy Allergic/Immunologic Allergic/Immunologic ED: Denies mouth swelling, tongue swelling or urticaria EXAM Physical Exam Narrative Exam Narrative: Well-appearing 59-year-old female. Sitting upright in bed. present in room. H EENT exam pupils round react light. Moist mucous membranes. No trauma to her face or scalp. Nontender no bruising. No hematoma or lacerations. C-spine and neck nontender. Back lumbar and right iliac crest tenderness. No ecchymosis or bruising. No abrasions. Cervical thoracic and upper lumbar spine are nontender. Lungs clear to auscultation bilaterally. Heart regular rhythm rate about 70 no murmur. Chest wall ribs nontender no bruising. No subcu air. Abdomen soft, nontender, nondistended normal bowel sounds no peritoneal signs. No bruising. Pelvic girdle intact. Moving all 4 extremities. Normal associate professor of communication strength. Bilaterally. Normal dorsi plantarflexion. Normal flexion extension of the hips and knees. Nontender no deformity. Neurologically she is awake alert. Answering questions following commands. GCS 15. Const Vital Signs: 10/07/24 18:24 10/07/24 18:51 Temperature 97.5 F L Temperature Source Temporal Pulse Rate 70 Respiratory Rate 18 Respiratory Effort Normal Non-Labored Respiratory Depth Normal Respiratory Pattern Normal Blood Pressure 164/91 H Blood Pressure Mean 115 Pulse Ox 98 Oxygen Delivery Method Room Air Positive well nourished and well developed; Negative for cachectic, contractures or unkempt General Appearance ED: well developed and NAD; Negative for unkempt, cachectic or contractures Nutritional Appearance: Negative for cachectic HEENT Reports normocephalic atraumatic; Negative for trauma, contusion, hematoma or tenderness Eyes PERRL and EOMs intact bilaterally Neck full ROM, no lymphadenopathy and supple Chest Wall inspection of chest normal and palpation of chest normal Resp normal respiratory effort, no retractions and clear to auscultation bilaterally Cardio regular rate, regular rhythm, S1 normal heart sound, S2 normal heart sound and no murmurs GI non-tender, non-distended and no masses Inspection: Negative for abdominal distention Auscultation: normoactive bowel sounds Palpation: soft; Negative for guarding or rebound tenderness present Back/Spine no CVA tenderness General Back: Negative for CVA tenderness Cervical Spine: Negative for cervical spine tenderness Lumbar Spine / Lower Back: lumbar spinal tenderness, paraspinal muscle tenderness and straight leg raise negative bilaterally Neuro oriented x3, CN's II-XII intact bilaterally, moves all extremities, no focal motor deficits and no sensory deficits noted Holden Coma Scale: document GCS findings Spontaneous Obeys Commands Oriented 15 Sensorium / Orientation: alert, oriented to person and oriented to time Motor Exam: strength 5/5 throughout Psych mental status grossly normal and thought process normal Appearance: Negative for unkempt Skin Lesions: no lesions Rashes: no rashes MDM MDM MDM Narrative Medical decision making narrative: 59-year-old female fall with complaint of low back pain lumbar spine and pelvis x-ray to be obtained. She was offered some for pain she deferred and said she was okay at this time. Repeat exam around 7:18 PM is unchanged. I will have the x-rays the patient and significant other. Should be discharged to home. Ice to all sore areas. Motrin Tylenol for pain. Follow-up if not proving. Treated as back contusion. History & Record Review Discussion w/independent historian: Patient and Family Radiography Diagnostic Testing: Pelvis x-ray, single view, interpreted by myself shows no acute fracture. Lumbar spine x-rays, 2 views, interpreted by myself shows no fracture. Went over the x-rays with the patient. Discharge Plan Triage Chief Complaint: Fall ED Provider: Brayden Castro Dx/Rx/DC Orders Clinical Impression: Fall, Back contusion Instructions: ED Soft Tissue Contusion, ED Back Contusion Prescriptions: No Action cholecalciferol (vitamin D3) 1,000 unit capsule 1,000 unit PO DAILY calcium carbonate [Calcium 600] 600 mg calcium (1,500 mg) tablet 600 mg PO BID omega-3 fatty acids [Fish Oil Concentrate] 1,000 mg capsule 1,000 mg PO DAILY omeprazole 20 mg capsule,delayed release(DR/EC) 20 mg PO BID Qty: 180 2RF levothyroxine 137 mcg tablet 137 mcg PO DAILY Qty: 90 2RF albuterol sulfate 90 mcg/actuation HFA aerosol inhaler 2 inh inhalation Q6H PRN (Reason: shortness of breath or wheezing) Qty: 6.7 0RF mecobalamin (vitamin B12) 1,000 mcg lozenge 1,000 mcg PO QDAY Rx Instructions: allow to dissolve in mouth OR may chew lightly before swallowing Mounjaro 5 mg/0.5 mL pen injector 5 mg SUBCUT SA vitamin B complex Capsule 1 cap PO DAILY lisinopril 5 mg tablet 5 mg PO QHS Zenpep 40,000-126,000- 168,000 unit capsule,delayed release(DR/EC) See Rx Instructions .ROUTE .COMPLEX Qty: 360 5RF Rx Instructions: take 1 by mouth with snacks, take 2 by mouth with meals Primary Care Provider: Kain Zayas Referrals: Kain Zayas, [employer] [Primary Care Provider] - 1 Week if not improving Activity Restrictions/Additional Instructions: Ice to your back. Motrin for pain inflammation. Tylenol for pain. This should progressively feel better tomorrow you are probably most sore. If is not getting better in a week follow-up for further evaluation. Your x-rays today showed no broken bones. Print Language: Estonian Disposition Disposition: Home, Self Care
[2024-10-07 18:50] VITALS: BMI 30.2
--- NOTE | 2024-10-07 18:55 | RAD_ITS ---
PROCEDURE: PELVIS 1 OR 2 VIEWS 10/07/2024 REASON FOR EXAM: FALL TECHNIQUE: PELVIS 1 OR 2 VIEWS COMPARISON: None. FINDINGS: No acute fracture or dislocation. Alignment is anatomic. Preserved joint spaces. No aggressive osseous lesion. Grossly unremarkable soft tissues. Pelvic phleboliths noted. RAD/Pelvis 1 or 2 Views IMPRESSION: No acute fracture or dislocation. Reading Location: [id number]
--- NOTE | 2024-10-07 18:55 | RAD_ITS ---
PROCEDURE: LUMBAR SPINE 2 OR 3 VIEWS 10/07/2024 REASON FOR EXAM: FALL AND PAIN TECHNIQUE: LUMBAR SPINE 2 OR 3 VIEWS COMPARISON: None. FINDINGS: No evidence of acute fracture or subluxation. Preserved vertebral body heights. Alignment is anatomic. Mild spondylotic changes with small anterior endplate osteophytes, and hypertrophic facet arthropathy. Relatively well preserved disc spaces. Normal bone mineralization. Normal symmetric SI joints. Unremarkable soft tissues with no unusual calcific densities. RAD/Lumbar Spine 2 or 3 Views IMPRESSION: No evidence of acute fracture or subluxation. Mild spondylotic changes. Reading Location: [id number]
[2024-10-07 19:21] VITALS: BP 141/69; PULSE 82; RESP 18; TEMP 36.4; O2SAT 98
== END 2024-10-07 19:31 | disposition home or self-care (01) ==
PROVIDERS: Emergency Provider Emergency Medicine; PCP Nurse Practitioner Family; Visit Provider Emergency Medicine
DX: S20.229A Contusion of unspecified back wall of thorax, initial encounter (principal); E11.9 Type 2 diabetes mellitus without complications; I10 Essential (primary) hypertension; W10.9XXA Fall (on) (from) unspecified stairs and steps, initial encounter; Y92.009 Unspecified place in unspecified non-institutional (private) residence as the place of occurrence of the external cause; Y93.01 Activity, walking, marching and hiking; Z79.899 Other long term (current) drug therapy; Z79.85 Long-term (current) use of injectable non-insulin antidiabetic drugs; Z90.49 Acquired absence of other specified parts of digestive tract; Z90.710 Acquired absence of both cervix and uterus; Z98.51 Tubal ligation status
CPT/HCPCS: 72100; 72170; 99282

== ENCOUNTER → 2024-10-17 | Outpatient (CLI) | payer OTHER, SELFPAY ==
[2024-10-17 13:00] LABS: AST(SGOT) 18 U/L (<=31); Alanine Aminotransfer ALT/SGPT 21 U/L (<=34); Albumin, Serum 4.2 g/dL (3.5-5.0); Alkaline Phosphatase 61 U/L (35-104); Anion Gap 14 (5-15); BUN 17 mg/dL (4-19); BUN/Creat Ratio 19.0 RATIO (10-20); Calcium,Total 9.3 mg/dL (7.6-11.0); Carbon Dioxide 19.3 mmol/L (21.0-32.0); Chloride 106 mmol/L (98-108); Globulin 2.8 g/dL (2.2-4.2); Glucose 154 mg/dL (70-99); Potassium 3.9 mmol/L (3.3-5.1)
== END | disposition home or self-care (01) ==
LOC: VSLAB 11:20
PROVIDERS: PCP Nurse Practitioner Family; Referring Provider Nurse Practitioner Family; Visit Provider Nurse Practitioner Family
DX: E03.9 Hypothyroidism, unspecified (principal)
CPT/HCPCS: 36415; 80053; 84439; 84443

== ENCOUNTER → 2024-10-22 | Outpatient (CLI) | payer OTHER, SELFPAY ==
--- NOTE | 2024-10-22 12:49 | BI_ITS ---
EXAM: DIAG MAMM W/CAD, BILAT 10/22/2024 CLINICAL HISTORY: F, Age 59 y/o , [place] Grandmother with breast cancer. TECHNIQUE: DIAG MAMM W/CAD, BILAT. COMPARISON: Prior exam(s) dated April 24, 2024.. FINDINGS: TISSUE DENSITY: The breasts are almost entirely fatty. Bilateral Breast Mammographic Findings: No significant masses, calcifications or other abnormalities are identified. No suspicious masses, areas of developing architectural distortion, or suspicious calcifications. There has been no significant interval change. BI/DIAG MAMM W/CAD, BILAT IMPRESSION: Stable examination. With the patient's history of left breast pain, targeted u ltrasound recommended. OVERALL FINAL ASSESSMENT BI-RADS 0: INCOMPLETE - NEED ADDITIONAL IMAGING EVALUATION. RECOMMENDATION: Ultrasound Recommended A letter with findings and recommendations will be mailed to the patient. Reading Location: [id number]
--- NOTE | 2024-10-22 12:49 | US_ITS ---
PROCEDURE: BREAST LIMITED UNILATERAL 10/22/2024 REASON FOR EXAM: F, Age 59 y/o , [place] Left breast pain. COMPARISON: Prior mammogram done earlier in the day.. TECHNIQUE: BREAST LIMITED UNILATERAL. The lateral midportion of the left breast was examined with ultrasound. FINDINGS: Fibroglandular tissue. No sonographic abnormality is seen. US/Breast Limited Unilateral IMPRESSION: No sonographic abnormality is seen. BI-RADS 1: NEGATIVE RECOMMENDATION: Routine annual follow-up in 1 Year Reading Location: [id number]
== END | disposition home or self-care (01) ==
LOC: OPBI 12:46
PROVIDERS: PCP Nurse Practitioner Family; Referring Provider Nurse Practitioner Family; Visit Provider Nurse Practitioner Family
DX: N64.4 Mastodynia (principal)
CPT/HCPCS: 76642; 77062; 77066; G0279

== ENCOUNTER → 2024-12-03 | Outpatient (CLI) | payer BC, SELFPAY | END | disposition home or self-care (01) | LOC: VSLAB 13:59 | PROVIDERS: PCP Nurse Practitioner Family; Visit Provider Nurse Practitioner Family | DX: E03.9 Hypothyroidism, unspecified (principal) | CPT/HCPCS: 36415; 84443 ==